=== PATIENT | female | born 1990 | race Caucasian/White ===

== ENCOUNTER → 2017-10-24 10:20 | Outpatient (CLI) | payer OTHER, SELFPAY | PROVIDERS: Visit Provider Physician Assistant Surgical | DX: J02.9 Acute pharyngitis, unspecified (principal) | CPT/HCPCS: 87081 ==

== ENCOUNTER 2017-11-13 15:30 | Outpatient (RCR) | payer OTHER, SELFPAY ==
--- NOTE | 2017-09-18 09:02 | HP.PTEVAL ---
Patient's Visit Information NANCY ALMEIDA is a 27 year old F referred to Physical Therapy by Susana Goode with a diagnosis of Chondromalacia patella. Date of Evaluation: 09/18/17 Physical Therapist: Anupama Pena - Visit Plan Frequency: 2x /Week Duration: 4 Weeks Plan: 2X/ week with HEP for OHS mecahnics and side lunge mechanics, hip and knee strengthening and straight plane core stability (???Diastasis recti core stability..), with HEP - Subjective Subjective: Pt reports that when she was in middle school did gymnastics and had injuries and then did stunting cheerleading and eased back into running. [place]ed training on country [place] and got a lot of pain in satorius and that was in middle of July. Pain in top of knee cap from on the R knee with lunging and side lunges or squating to [employer] son it will catch her breath. Stairs; hurts in the morning going down stairs, If goes on a run and then goes up stairs will feel pain in both knees. No x-rays at this point. No meds at this point. She is on a supplement with ligaplex... Was up to 7 miles and then got to the point she could not walk and has not run in about a week and a 1/2. Working out everyday doing [employer] with patella strap on the R. No N&T at this point. - Pain R knee pain Pain Intensity (Out of 10): 0 L knee pain Pain Intensity (Out of 10): 0 - Objective Gait: Walks with normal gait pattern. LE MMT: hip abd B 4-/5, Hip ext B 4-/5, hip flex R 4-/5 and L 4/5, Knee flex B 4/5, B knee ext 4/5. Pt is able to heel and toe walk without difficulty. Plank: 30 swc hold...as soon as tried hip extension her hips dropped. Small seperation diast recti?? Good HS and gastroc length. Trunk AROM: Flex 100%, Ext 100%, SB B 100%, Rot B 100%. B knee poppins. OHS: increased trunk flexion, knees over toes, good gastroc length. Side lunge: increase knee pain: flexed trunk: knee over toe, weight more fw. No tenderness to palpation. - Goals Goal 1:: I HEP Goal Time Frame: 4-6 Weeks Goal 2:: Be able to OHS with good mechanics and no pain X 10 Goal Time Frame: 4-6 Weeks Goal 3:: Be able to side squat with good mechanics and not pain Goal Time Frame: 4-6 Weeks Goal 4:: Be able to run couple of miles and have no pain after running or ascending the stairs after running Goal Time Frame: 4-6 Weeks - Rehabilitation Potential Rehabilitation Potential: Good - Anticipated Interventions Patient/Client Instruction: Educate patient on: Plan of Care For the Purpose of:: To decrease pain, To improve nutrient delivery to tissue, To increase oxygenation perfusion, To improve muscle performance and motor function, To improve ability to perform ADL's, To increase tolerance to activity/condition/position, To improve performance and independence with ADL's, To improve health of tissue Therapeutic Exercise to Include: Strength training, Postural training, Active ROM, Dynamic Lumbar Stabilization For the Purpose of:: To decrease pain, To increase ROM, To improve nutrient delivery to tissue, To improve muscle performance and motor function, To increase tolerance to activity/condition/position, To improve performance and independence with ADL's, To improve health of tissue Functional Training to Include: Functional sports training For the Purpose of:: To increase tolerance to activity/condition/position Manual Therapy Techniques to Include: Mobilization, Soft tissue mobilization For the Purpose of:: To decrease pain, To increase ROM, To improve nutrient delivery to tissue Thank you for the opportunity to evaluate your patient. For Medicare and Medicare HMO plans, please review the plan of care and approve it. It will need to be FAXED BACK to us at [phone] for Medicare purposes. Please let me know if there are questions or concerns regarding this plan of care. Physician Signature: Date:
--- NOTE | 2017-11-13 17:24 | HP.PTDCSUM ---
HP - PT D/C Summary It has been my pleasure to treat NANCY ALMEIDA under orders from Susana Goode, for the diagnosis of Chondromalacia patella for a total of 15 visit(s). Discharge Date: 11/13/17 Please see the following information for a summary of their discharge status. - Subjective Subjective: Pt reports that the Dr ordered an MRI. Pt reports that this weekend she could not do reverse lunges. - Pain R knee pain Pain Intensity (Out of 10): 1 L knee pain Pain Intensity (Out of 10): 0 - Overall Improvement % Improvement: 25 - Objective Objective/Function: Pt is able to perform an OHS without subsitiution and without pain - Goals Goal 1:: I HEP Goal Progress: Goal Met Goal 2:: Be able to OHS with good mechanics and no pain X 10 Goal Progress: Goal Met Goal 3:: Be able to side squat with good mechanics and not pain Goal Progress: Goal Met Goal 4:: Be able to run couple of miles and have no pain after running or ascending the stairs after running - Plan Plan: DC PT to HEP and see results of MRI - D/C Information Discharge Comments: DC PT to HEP and MRI ordered by MD If there are questions or concerns regarding this patient's physical therapy, please feel free to call me at [phone]. Thank you for the referral of this patient. Sincerely, Anupama Pena
== END 2017-11-13 19:00 | disposition home or self-care (01) ==
LOC: PT 15:30
PROVIDERS: Visit Provider Chiropractor
DX: M22.40 Chondromalacia patellae, unspecified knee (principal)
CPT/HCPCS: 97110; 97161; 97530

== ENCOUNTER → 2017-12-17 08:22 | Outpatient (CLI) | payer OTHER, SELFPAY ==
--- NOTE | 2017-12-17 08:29 | RAD_ITS ---
STUDY: X-RAY - RIGHT KNEE REASON FOR EXAM: Female, 27 years old. 5 month history of a knee pain. History of chondromalacia. TECHNIQUE: 2 view(s) of the knee. COMPARISON: None. FINDINGS: Normal visualized distal femur. Normal visualized proximal tibia and fibula. Normal proximal tibiofibular articulation. Normal medial femorotibial compartment. Normal lateral femorotibial compartment. Normal patellofemoral articulation. The soft tissue structures are unremarkable. RAD/Knee 1 or 2 Views IMPRESSION: Normal x-ray examination of the knee. Electronically Signed: Cuco Wiggins MD at 13:49 EST Tel [phone], Service support ,
== END ==
PROVIDERS: Family Provider Family Medicine; PCP Family Medicine; Referring Provider Chiropractor; Visit Provider Chiropractor
DX: J02.9 Acute pharyngitis, unspecified (principal); M94.261 Chondromalacia, right knee
CPT/HCPCS: 73560; 87081

== ENCOUNTER → 2018-01-16 17:48 | Outpatient (CLI) | payer OTHER, SELFPAY ==
[2017-12-30 10:11] VITALS: BMI 26.8
--- NOTE | 2018-01-16 18:09 | MRI_ITS ---
STUDY: MRI RIGHT KNEE REASON FOR EXAM: Pain around the patella since July. TECHNIQUE: Standardized fat and water weighted pulse sequences were obtained in all 3 orthogonal planes. COMPARISON: Radiographs 12/17/2017. FINDINGS: There is a horizontal/oblique tear of the inferior articular surface of the posterior horn of the medial meniscus (proton-density sagittal images 28-33) with a small parameniscal cyst (T2 sagittal images 16-19). Normal hyaline cartilage of the medial femorotibial compartment. Normal medial femoral condyle and tibial plateau. Normal medial collateral ligamentous complex (MCL). Normal distal semimembranosus, gracilis and semitendinosus tendons. Normal lateral meniscus. Normal hyaline cartilage of the lateral femorotibial compartment. Normal lateral femoral condyle and tibial plateau. Normal proximal tibiofibular articulation. Normal lateral collateral (fibular) ligament. Normal popliteus tendon. Normal biceps femoris tendon. Normal anterior cruciate ligament (ACL). Normal posterior cruciate ligament (PCL). Normal congruent patellofemoral articulation. Normal hyaline cartilage of the patellofemoral compartment. Normal medial and lateral patellar retinaculum. Normal quadriceps tendon. Normal patellar tendon. Normal Hoffa's fat pad. There is a minimal volume of fluid in the knee joint. There is a thin medial patellar plica. The soft tissues are unremarkable. The otherwise visualized osseous structures are unremarkable. MRI/Lower Ext Joint Only (Routine) IMPRESSION: Medial meniscal tear with small parameniscal cyst. No demonstrated chondromalacia patellae. Electronically Signed: Young Shepherd MD at 9:16 EST Tel , Service support ,
--- OUTSIDE RECORDS SUMMARY | 2018-03-04 22:30 | XMS RPT_ITS ---
:1990 Author Organization OHIP Support Name Relationship Address Phone ELLE KRYSTA Unavailable [id number] + [place] [address] NORWESSCH Unavailable [address] + [place] [address] VI, PAT Unavailable [address] + [place] [address] KRYSTA ALMEIDA Unavailable [address] + [place] [address] NORWESSCH Unavailable [address] + [place] [address] VI, PAT Unavailable [address] + [place] [address] ISAC ALMEIDATT Unavailable [address] + [place] [address] NORWESSCH Unavailable [address] + [facility] [place] [address] VI, PAT Unavailable [address] + [place] [address] KRYSTA ALMEIDA Unavailable [address] + [facility] [place] [address] NORWESSCH Unavailable [address] + [facility] [place] [address] VI, PAT Unavailable [address] + [place] [address] KRYSTA ALMEIDA Unavailable [address] + [place] [address] NORWESSCH Unavailable [address] + [facility] [place] [address] VI, PAT Unavailable [address] + [place] [address] ELLE, KRYSTA Unavailable [address] + [place] [address] NORWESSCH Unavailable [address] + [place] [address] VI, PAT Unavailable [address] + [place] [address] ELLE, KRYSTA Unavailable [address] + [place] [address] NORWESSCH Unavailable [address] + [place] [address] VI, PAT Unavailable [address] + [place] [address] ELLE, KRYSTA Unavailable [address] + [place] [address] NORWESSCH Unavailable [address] + [place] [address] VI, PAT Unavailable [address] + [place] [address] ELLE KRYSTA Unavailable [address] + [place] [address] NORWESSCH Unavailable [address] + [place] [address] VI, PAT Unavailable [address] + [place] [address] ELLE KRYSTA Unavailable [address] + [place] [address] NORWESSCH Unavailable [address] + [place] [address] VI, PAT Unavailable [address] + [place] [address] ELLE, KRYSTA Unavailable [address] + [place] [address] NORWESSCH Unavailable [address] + [place] [address] VI, PAT Unavailable [address] + [place] [address] ELLE KRYSTA Unavailable [address] + [place] [address] NORWESSCH Unavailable [address] + [place] [address] VI, GUILLERMO Unavailable [address] + [place] [address] Care Team Providers Name Role Phone Baldomero Rich Attending Unavailable Baldomero Rich Attending Unavailable Arden Gregory Attending Unavailable NAUMOFF, MARVIN Referring Unavailable NAUMOFF, MARVIN Primary Care Unavailable Jose Velarde Attending Unavailable NAUMOFF, MARVIN Referring Unavailable NAUMOFF, MARVIN Primary Care Unavailable BARDSUSANA REDDY Attending Unavailable BARDBARRY, SUSANA Referring Unavailable Primay Care Physicia, No Primary Care Unavailable Arden Gregory Attending Unavailable Primay Care Physicia, No Referring Unavailable Primay Care Physicia, No Primary Care Unavailable Arden Gregory Attending Unavailable Arden Gregory Referring Unavailable Primay Care Physicia, No Primary Care Unavailable Jose Velarde Attending Unavailable NAUMOFF, MARVIN Referring Unavailable Syd, Jose Attending Unavailable NAUMOFF, MARVIN Referring Unavailable BARDBARRY, SUSANA Attending Unavailable BARDBARRY, SUSANA Referring Unavailable NAUMOFF, MARVIN Primary Care Unavailable Jose Velarde Consulting Unavailable Ladi Cox Attending Unavailable NAUMOFF, MARVIN Referring Unavailable BARDBARRY, SUSANA Attending Unavailable BARDALL, SUSANA Referring Unavailable NAUMOFF, MARVIN Primary Care Unavailable PROBLEMS PROBLEMS DATE TYPE CONDITION / CODE ATTENDING STATUS SOURCE 02/13/2018 Unknown Z34.81 - Encounter Baldomero Rich for supervision of Community other normal Hospital , first Repository trimester / Z34.81(ICD-10) 01/31/2018 Unknown Z11.3 - Encounter Baldomero Rich for screening for Community infections with a Hospital predominantly sexual Repository mode of transmission / Z11.3(ICD-10) 12/30/2017 Unknown R39.9 - Unspecified Loyda Cox symptoms and signs Ladi [facility] involving the Hospital genitourinary system Repository / R39.9(ICD-10) 12/17/2017 Unknown J02.9 - Acute Loyda [facility] pharyngitisSUSANA Community unspecified / Hospital J02.9(ICD-10) Repository 12/05/2017 Unknown R30.0 - Dysuria / Jose Velarde [place] R30.0(ICD-10) [facility] 11/14/2017 Unknown M22.40 - BARDALL, Active [facility] unspecified knee / Repository M22.40(ICD-10) PROCEDURES PROCEDURES No Procedure Records FoundRESULTS RESULTS URINE DRUG SCREEN Collected: 02/13/2018 Status: F Source: [place] (VISTA) 11:50 AM [facility] REPOSITORY Order Comment: List of Drugs Taken or Suspected? UNK TYPE CODE TESTS RESULT OUT OF RANGE REFERENCE UNITS LAB L505.0075 TO BE Normal CONFIRMED Result Comment: CONFIRMATORY TESTING FOR ALL POSITIVE URINE DRUG SCREEN RESULTS WILL ONLY BE SENT OUT UPON PHYSICIAN ORDER. VISTA Urine Drug Screen methods provide only preliminary analytical test results. A more specific alternate chemical method must be used in order to obtain a confirmed analytical result. Gas chromatography/mass spectrometery (GC/MS) is the preferred confirmatory method. Clinical consideration and professional judgement should be applied to any drug of abuse test result, particularly when preliminary positive results are used. URINE TCA TESTING MUST BE ORDERED SEPARATELY. USE TEST MNEMONIC: [facility] LAB L505.5005 VISTA UDS PH 5 Normal LAB L505.5015 <1000 ng/mL AMPHETAMINES Normal NEGATIVE LAB L505.5025 < 200 ng/mL BARBITIURATES Normal NEGATIVE LAB L505.5035 < 200 ng/mL BENZODIAZIPINE Normal NEGATIVE LAB L505.5045 < 300 ng/mL COCAINE Normal NEGATIVE LAB L505.5055 < 500 ng/mL ECSTACY Normal NEGATIVE LAB L505.5065 < 300 ng/mL METHADONE Normal NEGATIVE LAB L505.5075 < 300 ng/mL OPIATES Normal NEGATIVE LAB L505.5085 < 25 ng/mL PCP Normal NEGATIVE LAB L505.5095 < 50 ng/mL THC Normal NEGATIVE Performed By: #### L505.5000 #### [facility] [address] [place], [place], [address] URINALYSIS, ROUTINE Collected: 02/13/2018 Status: F Source: [place] (DIPSTICK) 11:50 AM [facility] REPOSITORY Order Comment: How was Urine Obtained? Urine, Random TYPE CODE TESTS RESULT OUT OF RANGE REFERENCE UNITS LAB L400.3000 Yellow COLOR Normal Yellow LAB L400.3050 Clear Normal CLARITY Clear LAB L400.3200 Normal mg/dl Normal GLUCOSE, UR Normal LAB L400.3300 Negative mg/dL Normal BILIRUBIN URINE Negative LAB L400.3400 Negative mg/dl Normal KETONE UR Negative LAB L400.3465 1.002-1.030 Normal SP.GR. DIPSTX 1.010 LAB L400.3550 5.0 - 8.0 pH UR Normal 6.0 LAB L400.3600 Negative mg/dl PROT Normal DIPSTX Negative LAB L400.3700 Normal mg/dl Normal UROBILI Normal LAB L400.3750 Negative Normal NITRITE UR Negative LAB L400.3780 Negative /ul Normal OCCULT BLOOD-UR Negative LAB L400.3800 Negative /ul LEUK Normal ESTERASE Negative Performed By: #### L400.2010 #### [facility] [address] [place], [address] THYROID STIM HORMONE Collected: 02/13/2018 Status: F Source: [place] (TSH) 11:50 AM [facility] REPOSITORY TYPE CODE TESTS RESULT OUT OF RANGE REFERENCE UNITS LAB L501.9520 0.358-3.74 uIU/mL Low TSH 0.31 Performed By: #### L501.9520 #### [facility] [address] [place], [address] CBC W/DIFF, AUTOMATED Collected: 02/13/2018 Status: F Source: [place] 11:50 AM [facility] REPOSITORY TYPE CODE TESTS RESULT OUT OF RANGE REFERENCE UNITS LAB L100.1000 4.4-11.0 K/mm3 Normal WBC 8.5 LAB L100.1200 4.2-5.4 M/mm3 Normal RBC 4.96 LAB L100.1300 12.0-15.0 g/dl Normal HGB 13.9 LAB L100.1400 37-47 % Normal HCT 42.5 LAB L100.1500 81-99 fL Normal MCV 85.7 LAB L100.1600 27.0-32.0 pg Normal MCH 28.0 LAB L100.1700 32-36 g/gl Normal MCHC 32.7 LAB L100.1810 11.6-14.6 % Normal RDW CV 13.2 LAB L100.1820 35.1-43.9 fl Normal RDW SD 40.9 LAB L100.1900 150-450 K/mm3 Normal PLT 304 LAB L100.2000 6.2-12.0 fl Normal MPV 9.7 LAB L100.2100 47-70 % High NEUT% 70.9 LAB L100.2200 19-41 % Normal LY% 21.1 LAB L100.2300 0-10 % Normal MONO% 6.8 LAB L100.2400 0-5 % Normal EO% 0.8 LAB L100.2500 0-1 % Normal BASO% 0.2 LAB L100.2550 0.0-0.9 % Normal IM GRAN % 0.200 Result Comment: IG% - Immature Granulocytes (promyelocytes, myelocytes and metamyelocytes) > 1% indicates that a LEFT SHIFT is Present. LAB L100.2620 2.0-7.7 X10 3/uL Normal Absolute Neut 6.0 LAB L100.2720 0.83-4.51 X10 3/ul Normal Absolute Lymph 1.80 Performed By: #### L100.0100 #### [facility] [address] [facility] [address] RUBELLA IGG Collected: 02/13/2018 Status: F Source: [place] 11:50 AM [facility] REPOSITORY TYPE CODE TESTS RESULT OUT OF RANGE REFERENCE UNITS LAB L509.4000 IU/mL Normal Rubella IgG 35.1 Result Comment: Antibody results Interpretation of Immune Status < 5 IU/ml Presumed Non-immune 5 - < 10 IU/ml Equivocal > or = 10 IU/ml Presumed Immune Performed By: #### L509.4000, L3890.6005 #### [facility] [address] [place], [address] HIV - [facility] Collected: 02/13/2018 Status: F Source: [place] 11:50 AM [facility] REPOSITORY TYPE CODE TESTS RESULT OUT OF RANGE REFERENCE UNITS LAB L3890.6005 Nonreactive Normal HIV - [facility] Non-Reactive Performed By: #### L509.4000, L3890.6005 #### [facility] [address] [place], [address] T AND S-NO Collected: 02/13/2018 Status: F Source: [place] CHARGE W/PNP 11:50 AM [facility] REPOSITORY Order Comment: Reason for Type AND Screen/Red Cells: Surgery? N TYPE CODE TESTS RESULT OUT OF RANGE REFERENCE UNITS LAB B10.0800 O Normal BLOOD NEGATIVE TYPE GEL LAB B100.4050 Normal Ab SCREEN NEGATIVE GEL Performed By: #### B100.7550 #### [facility] [address] [place], [place], [address] RPR Collected: 02/13/2018 Status: F Source: [place] 11:50 AM [facility] REPOSITORY TYPE CODE TESTS RESULT OUT OF REFERENCE UNITS RANGE LAB L700.5100 NONREACTIVE Normal RPR NONREACTIVE Performed By: #### L700.5100 #### [facility] [address] [place], [place], [address] HEPATITIS B SURFACE Collected: 02/13/2018 Status: F Source: [place] AG 11:50 AM [facility] REPOSITORY TYPE CODE TESTS RESULT OUT OF RANGE REFERENCE UNITS LAB L3100.0400 Negative Normal HB Negative SURF AG Result Comment: Performed at: - [facility] [address] [id number] Instrument Maker Apprentice: Oleg Wesley PhD, Phone: [phone] Performed By: #### L3100.0390, L3100.0625 #### [facility] (refer to report for specific site) refer to report for address and phone number HEPATITIS C ANTIBODIES Collected: 02/13/2018 Status: F Source: [place] 11:50 AM [facility] REPOSITORY TYPE CODE TESTS RESULT OUT OF RANGE REFERENCE UNITS LAB L3100.0650 0.0-0.9 s/co ratio Normal HEP C AB <0.1 Result Comment: Negative: < 0.8 Indeterminate: 0.8 - 0.9 Positive: > 0.9 The CDC recommends that a positive HCV antibody result be followed up with a HCV Nucleic Acid Amplification test (045358). Performed By: #### L3100.0390, L3100.0625 #### [facility] (refer to report for specific site) refer to report for address and phone number CT/NG [facility] BY PCR Collected: 01/31/2018 Status: F Source: [place] 1:45 PM [facility] REPOSITORY TYPE CODE TESTS RESULT OUT OF RANGE REFERENCE UNITS LAB L8200.2100 Negative Normal Chlam Negative Trac PCR LAB L8200.2200 Negative Normal NG by Negative PCR Performed By: #### L8200.2000 #### [facility] [address] [place], [address] LOWER EXT JOINT ONLY Observed: 01/16/2018 Status: F Source: [place] (ROUTINE) 6:10 PM [facility] REPOSITORY [facility] Imaging Services [address] [place] [address] Lower Ext Joint Only (Routine) MR#: [id number] Acct: [id number] Name: NANCY ALMEIDA Rep #: [id number] : 1990 F 27 From: Young Shepherd MD PCP: Marvin Oconnor MD Status: REG CLI Study: Lower Ext Joint Only (Routine) Date of Exam: 01/16/18 Exam# [id number] Ordering Dr: Susana Kaiser STUDY: MRI RIGHT KNEE REASON FOR EXAM: Pain around the patella since July. TECHNIQUE: Standardized fat and water weighted pulse sequences were obtained in all 3 orthogonal planes. COMPARISON: Radiographs 12/17/2017. FINDINGS: There is a horizontal/oblique tear of the inferior articular surface of the posterior horn of the medial meniscus (proton-density sagittal images 28-33) with a small parameniscal cyst (T2 sagittal images 16-19). Normal hyaline cartilage of the medial femorotibial compartment. Normal medial femoral condyle and tibial plateau. Normal medial collateral ligamentous complex (MCL). Normal distal semimembranosus, gracilis and semitendinosus tendons. Normal lateral meniscus. Normal hyaline cartilage of the lateral femorotibial compartment. Normal lateral femoral condyle and tibial plateau. Normal proximal tibiofibular articulation. Normal lateral collateral (fibular) ligament. Normal popliteus tendon. Normal biceps femoris tendon. Normal anterior cruciate ligament (ACL). Normal posterior cruciate ligament (PCL). Normal congruent patellofemoral articulation. Normal hyaline cartilage of the patellofemoral compartment. Normal medial and lateral patellar retinaculum. Normal quadriceps tendon. Normal patellar tendon. Normal Hoffa's fat pad. There is a minimal volume of fluid in the knee joint. There is a thin medial patellar plica. The soft tissues are unremarkable. The otherwise visualized osseous structures are unremarkable. MRI/Lower Ext Joint Only (Routine) IMPRESSION: Medial meniscal tear with small parameniscal cyst. No demonstrated chondromalacia patellae. Electronically Signed: Young Shepherd MD at 9:16 EST Tel , Service support , CC: Marvin Oconnor MD; SUSANA [facility] Lab Tech Instructor: Signed URGENT CARE VISIT Observed: 12/30/2017 Status: F Source: [place] REPORT 10:43 AM [facility] [address] [place] [address] OFFICE VISIT Date of Service: 12/30/17 MR#: [id number] Acct: [id number] Name: NANCY ALMEIDA Rep #: [id number] : 1990 Provider: SHERLY Cox Age/Sex: 27/F Location: [facility] Status: Signed Intake Vital Signs12/30/17 Height 5 ft 6 in 12/30/17 Weight: 166 lb 4 oz 12/30/17 Body Mass Index (BMI) 26.8 12/30/17 Blood Pressure 138/75 H Intake Visit Reasons: Urinary tract infection Chief Complaint: Dysuria Is patient in pain?: Yes (burning with pee ) Allergies acetaminophen [From Vicodin] Adverse Reaction (Verified 12/17/17 08:04) Itching hydrocodone [From Vicodin] Adverse Reaction (Verified 12/17/17 08:04) Itching PFSH Medical History Gave to child recently (Acute) Family History Other Bleeding disorder Diabetes Social History Smoking Status: Never smoker alcohol intake: never HPI HPI Chief Complaint: Dysuria Details: NANCY ALMEIDA, is a 27 F who presents to the office today for mild symptoms of some pressure and urgency after urination. She has no fever chills nausea or vomiting. No back pain. She states she had a UTI last month and was treated with an antibiotic safe for as they are trying to conceive. Today's test is negative. UA shows No nitrates. Trace of blood and trace leukocytes. ROS Const Constitutional: No body ache, chills, fatigue, fever(s), night sweats, change in appetite, weakness, frequent falls, headache(s) or excessive sweating Eyes Eyes: No visual disturbances, light sensitivity, eye pain or change in vision ENT ENT: No ear pain, ear discharge, hearing loss, dizziness/vertigo, nasal discharge, difficulty swallowing, sore throat, neck pain or headache(s) Resp Respiratory: No cough, chest congestion, hemoptysis, shortness of breath or wheezing Cardio Cardiology: No shortness of breath, irregular heart rhythm, lightheadedness, chest pain at rest, chest pain with exertion, generalized swelling, orthopnea, palpitations or excessive sweating Gastro GI: No difficulty swallowing, abdominal pain, bloating, change in bowel habits, diarrhea, blood in stool, Black,tarry stools, nausea/dyspepsia or vomiting Genitourinary-Female: Positive for urinary urgency; no burning urination, urinary frequency, blood in urine or Vaginal Itching Musc Musculoskeletal: No joint pain, back pain, numbness, tingling or neck pain Skin Skin: Positive for other (just quit breast feeding her one year old so feels alot of breast pressure.); no lesions, itching or rash Breast Breast: Positive for other (just quit breast feeding her one year old so feels alot of breast pressure.) Neuro Neurology: No visual disturbances, numbness, tingling, abnormal speech, confusion, unsteady gait/balance, dizziness, weakness, frequent falls, loss of vision or headache(s) Psych Psychiatric: No change in appetite, No confusion, No anxiety, No depression Endo Endocrine: No fatigue, cold intolerance, excessive sweating, flushing, heat intolerance or increased thirst/drinking Aller/Imm Allergy/Immunologic: No wheezing, itchy eyes, food intolerance, seasonal allergy symptoms or hives Bobby/Lymp Hematologic/Lymphatic: No easy bruising Exam Const General: cooperative, no acute distress Orientation: alert, oriented x3 HENMT Head: normal to inspection, normocephalic Ears: hearing grossly normal bilaterally, external ears normal Face and sinus: normal facial exam Mouth: oral mucosae normal, oropharynx normal, tongue normal Throat: posterior oropharynx normal Eyes General: appearance normal, both eyes and all related structures Eyelids: eyelids normal Conjunctivae: conjunctivae normal Sclera: sclerae normal Pupils: PERRL EOM: EOM intact bilaterally Direct ophthalmoscopy: normal light reflex, no photophobia Neck Neck: normal visual inspection, supple, no lymphadenopathy Neck mass: No Thyroid: thyroid normal Carotids: no bruits Lymphatic: no lymphadenopathy noted Chest Chest palpation AND inspection: normal inspection of the chest Resp Effort AND Inspection: normal respiratory effort, able to speak in complete sentences, symmetric chest movement, no audible wheezes, no cough, not labored, no respiratory distress Auscultation: Bilateral: Clear to Auscultation Cardio Rate: regular rate Rhythm: regular rhythm Heart Sounds: S1 normal, S2 normal GI Inspection: normal to inspection Auscultation: normal bowel sounds Palpation: soft, no hepatosplenomegaly, no pulsatile masses, no guarding, not rigid, no hepatosplenomegaly, nontender Musc Musculoskeletal: No joint tenderness or joint redness Skin General: no rashes or lesions noted Neuro General: alert, oriented x3, moves all extremities Speech: speech normal Extrem General: normal to inspection Psych Appearance: grossly normal, well kempt Mental Status: mental status grossly normal Affect: normal affect Speech and Movement: speech and movement normal Attitude: cooperative Thought Process: normal Thought Content: normal Judgment: judgment good Assessment AND Plan Problems 1. Symptoms of urinary tract infection R39.9 Plan Since symptoms are mild and patient is trying to conceive, patient has opted to wait until the urine C AND S returns and proper antibiotic, safe for , is chosen if needed. She was advised if while waiting for culture to return her symptoms worsen she can call here to get an antibiotic called in. UA sent for culture ad sensitivity. If she needs an antibiotic, would need one safe for called in to [facility] Coding Level of Care Code Off vis,est,level 3 Diagnoses Symptoms of urinary tract infection R39.9 12/30/17 1043 <Electronically signed by Ladi DUBOIS> Date Ladi Johnson Signature: Date (if applicable) CC: URGENT CARE VISIT Observed: 12/17/2017 Status: F Source: [facility] REPORT 8:31 AM [facility] REPOSITORY [facility] [address] [place] [address] [address] [place] [address] OFFICE VISIT Date of Service: 12/17/17 MR#: [id number] Acct: [id number] Name: NANCY ALMEIDA Rep #: [id number] : 1990 Provider: Jose DUBOIS Age/Sex: 27/F Location: [facility] Status: Signed Intake Vital Signs12/17/17 Height 5 ft 6 in Intake Visit Reasons: FEVER, SORE THROAT, BODY ACHES Chief Complaint: Dysuria Allergies acetaminophen [From Vicodin] Adverse Reaction (Verified 12/17/17 08:04) Itching hydrocodone [From Vicodin] Adverse Reaction (Verified 12/17/17 08:04) Itching [facility] Medical History Gave to child recently (Acute) Family History Other Bleeding disorder Diabetes Social History Smoking Status: Never smoker alcohol intake: never HPI HPI Chief Complaint: Dysuria Details: NANCY ALMEIDA, is a 27 F who presents to the office today for initial evaluation 48-hour history of sore throat and occasional chills. No complaints of fever, drooling, sweats, cough, chest pain/shortness of breath. No oxbj-iyq-vijbwkf products tried to assist with symptoms. No other members in household with similar complaints. She is a non-smoker. No other associated symptoms and no other alleviating or aggravating factors. ROS Const Constitutional: No other (ROS negative x10 other than as noted above) Exam Const General: cooperative, healthy appearing, no acute distress, comfortable Nutritional Appearance: average body habitus Orientation: alert, awake, oriented x3 [facility] Head: normal to inspection Ears: hearing grossly normal bilaterally, external ears normal, TM's normal bilaterally, EAC's normal Nose: external nose normal, nares normal, septum normal, no nasal discharge Face and sinus: normal facial exam, sinuses nontender, face symmetric Mouth: tongue normal, lip normal, oral mucosae normal Teeth and gingiva: dentition normal, gingiva normal Throat: uvula midline, posterior oropharynx normal, no postnasal drainage, abnormal tonsil bilaterally erythema (Rapid strep test today negative) Eyes General: appearance normal, both eyes and all related structures Neck Neck: normal visual inspection, full ROM, no lymphadenopathy, no meningeal signs, supple Neck mass: No Thyroid: thyroid normal Lymphatic: no lymphadenopathy noted Chest Chest palpation AND inspection: normal inspection of the chest Resp Effort AND Inspection: normal respiratory effort, able to speak in complete sentences, symmetric chest movement, no cough Auscultation: Bilateral: Clear to Auscultation Cardio Palpation: normal PMI Rate: regular rate Rhythm: regular rhythm Heart Sounds: S1 normal, S2 normal, no gallops, no murmurs, no rubs Pulses: radial pulses present GI Inspection: normal to inspection Palpation: soft, no hepatosplenomegaly Skin General: no rashes or lesions noted Neuro General: alert, awake, oriented x3, gait normal Cognition: normal cognition Speech: speech normal Gait: normal gait Motor: muscle tone normal throughout Sensory Exam: no sensory deficits noted Psych Appearance: grossly normal Mental Status: mental status grossly normal Mood: congruent mood Affect: normal affect Speech and Movement: speech and movement normal Attitude: cooperative Thought Process: normal Thought Content: normal Judgment: judgment good Assessment AND Plan Problems 1. Pharyngitis J02.9 Plan Patient aware today's rapid strep test was negative therefore culture sent to lab for further evaluation. Clear fluids, rest, Advil/Tylenol, saltwater gargles, change toothbrush as instructed today. Follow-up with PCP in 5-7 days should symptoms not improve, sooner should symptoms worsen or any other concerns develop. Patient states acknowledging understanding all the above. This note was generated with [employer] dictation software. It may contain incorrect words, spelling, and punctuation that were not noted in checking the note before signing. Orders Orders: Coding Level of Care Code Off vis,est,level 3 Diagnoses Pharyngitis J02.9 12/17/17 0831 <Electronically signed by Jose DUBOIS> Date Jose DUBOIS Cosigner Signature: Date (if applicable) CC: KNEE 1 OR 2 VIEWS Observed: 12/17/2017 Status: F Source: GROTON 8:28 AM [facility] REPOSITORY [facility] Imaging Services [address] [place] [address] Knee 1 or 2 Views MR#: [id number] Acct: [id number] Name: NANCY ALMEIDA Rep #: [id number] : 1990 F 27 From: Cuco Wiggins MD PCP: Marvin Oconnor MD Status: REG CLI Study: Knee 1 or 2 Views Date of Exam: 12/17/17 Exam# [id number] Ordering Dr: Susana Kaiser STUDY: X-RAY - RIGHT KNEE REASON FOR EXAM: Female, 27 years old. 5 month history of a knee pain. History of chondromalacia. TECHNIQUE: 2 view(s) of the knee. COMPARISON: None. FINDINGS: Normal visualized distal femur. Normal visualized proximal tibia and fibula. Normal proximal tibiofibular articulation. Normal medial femorotibial compartment. Normal lateral femorotibial compartment. Normal patellofemoral articulation. The soft tissue structures are unremarkable. RAD/Knee 1 or 2 Views IMPRESSION: Normal x-ray examination of the knee. Electronically Signed: Cuco Wiggins MD at 13:49 EST Tel [phone], Service support , CC: Marvin Oconnor MD; SUSANA KAISER Medical Lab Tech Instructor: Signed Observed: 12/17/2017 Status: F Source: ESTHER CULTURE, R/O STREP A 8:00 AM [facility] REPOSITORY JOB Culture No Group A Beta Streptococcus isolated. * This cultures intended use is to screen for Beta Streptococcus A only. All other pathogens and potential pathogens will not be screened for or reported. If a complete workup of all potential pathogens is indicated an order for a routine throat culture is required. Performed By: #### M100.010 #### [facility] Laboratory [address] [place], [address] URGENT CARE VISIT Observed: 12/05/2017 Status: F Source: ESTHER REPORT 10:11 AM [facility] REPOSITORY [facility] [address] [place] [address] 6 [place] [address] OFFICE VISIT Date of Service: 12/05/17 MR#: [id number] Acct: [id number] Name: NANCY ALMEIDA Rep #: [id number] : 1990 Provider: Jose DUBOIS Age/Sex: 27/F Location: [facility] Status: Signed Intake Vital Signs12/05/17 Height 5 ft 6 in 12/05/17 Weight: 164 lb 12/05/17 Body Mass Index (BMI) 26.4 12/05/17 Blood Pressure 120/76 Intake Visit Reasons: Urinary tract infection Chief Complaint: Dysuria Development Chemist Required: No Accompanied by: self Is patient in pain?: No Allergies acetaminophen [From Vicodin] Adverse Reaction (Verified 12/05/17 08:53) Itching hydrocodone [From Vicodin] Adverse Reaction (Verified 12/05/17 08:53) Itching Medications nitrofurantoin monohydrate/macrocrystals 100 mg capsule 100 mg PO BID #10 cap 12/05/17 [Rx Confirmed 12/05/17] [facility] Medical History Gave to child recently (Acute) Family History Other Bleeding disorder Diabetes Social History Smoking Status: Never smoker alcohol intake: never HPI HPI Chief Complaint: Dysuria Details: NANCY ALMEIDA, is a 27 F who presents to the office today for initial evaluation approximate 24-hour history of dysuria and urinary frequency. No complaints of fever, chills, sweats, back pain, though does note mild suprapubic tenderness. She notes taking no ekxp-fxc-ikgucvz products to assist with symptoms. Patient would also be like to be screened for . She notes no other associated symptoms and no other alleviating or aggravating factors. ROS Const Constitutional: No other (ROS negative x10 other than as noted above) Exam Const General: cooperative, healthy appearing, no acute distress, comfortable Nutritional Appearance: average body habitus Orientation: alert, awake, oriented x3 HENMT Head: normal to inspection Ears: hearing grossly normal bilaterally, external ears normal Nose: external nose normal Eyes General: appearance normal, both eyes and all related structures Neck Lymphatic: no lymphadenopathy noted Chest Chest palpation AND inspection: normal inspection of the chest Resp Effort AND Inspection: normal respiratory effort, able to speak in complete sentences, symmetric chest movement Auscultation: Bilateral: Clear to Auscultation Cardio Rate: regular rate Pulses: radial pulses present GI Inspection: normal to inspection Palpation: soft, not firm, no guarding, tender other (suprapubic tender when patient palpates, she states) General: No CVA tenderness, other (See urinalysis dip and urine hCG results) Skin General: no rashes or lesions noted Neuro General: alert, awake, oriented x3, gait normal Cognition: normal cognition Speech: speech normal Gait: normal gait Motor: muscle tone normal throughout Sensory Exam: no sensory deficits noted Extrem General: normal to inspection Psych Appearance: grossly normal Mental Status: mental status grossly normal Mood: congruent mood Affect: normal affect Speech and Movement: speech and movement normal Attitude: cooperative Thought Process: normal Thought Content: normal Judgment: judgment good Results BMSUA Office Urine Color Yellow Last Edit by Theresa Glass on 12/05/17 09:19 BMSPREGUR Office , Urine Negative Last Edit by Theresa Glass on 12/05/17 09:19 Assessment AND Plan 1. Urinary tract infection N39.0 Plan Detail Other Orders Orders: Other Medications New: nitrofurantoin monohyd/m-cryst 100 mg (Macrobid) must jlfirs727 mg PO BID 10 caps 0RF ster with a meal/food Additional Comments Macrobid as prescribed today. Appropriate hygiene is reinforced today. Follow-up with PCP in 3-5 days should symptoms not improve, sooner should symptoms worsen or any other concerns develop. Patient states acknowledging understanding all the above. This note was generated with UXFLIPation software. It may contain incorrect words, spelling, and punctuation that were not noted in checking the note before signing. Coding Level of Care Code Off vis,est,level 3 Diagnoses Urinary tract infection N39.0 12/05/17 1011 <Electronically signed by Jose DUBOIS> Date Jose DUBOIS Cosigner Signature: Date (if applicable) CC: PT D/C SUMMARY (1) Observed: 11/13/2017 Status: F Source: GROTON 5:31 PM [facility] REPOSITORY [facility] Physical Therapy [address] [place] [address] Fax REHABILITATION SERVICES DISCHARGE SUMMARY MR#: [id number] Acct: [id number] Name: NANCY ALMEIDA Rep #: [id number] : 1990 27 From: Anupama Pena MPT Referring DrRomain: SUSANA KAISER Status: REG RCR Insurance: [facility] SELF PAY INSURANCE HP - PT D/C Summary It has been my pleasure to treat NANCY ALMEIDA under orders from Susana Kaiser, for the diagnosis of Chondromalacia patella for a total of 15 visit(s). Discharge Date: 11/13/17 Please see the following information for a summary of their discharge status. - Subjective Subjective: Pt reports that the Dr ordered an MRI. Pt reports that this weekend she could not do reverse lunges. - Pain R knee pain Pain Intensity (Out of 10): 1 L knee pain Pain Intensity (Out of 10): 0 - Overall Improvement % Improvement: 25 - Objective Objective/Function: Pt is able to perform an OHS without subsitiution and without pain - Goals Goal 1:: I HEP Goal Progress: Goal Met Goal 2:: Be able to OHS with good mechanics and no pain X 10 Goal Progress: Goal Met Goal 3:: Be able to side squat with good mechanics and not pain Goal Progress: Goal Met Goal 4:: Be able to run couple of miles and have no pain after running or ascending the stairs after running - Plan Plan: DC PT to HEP and see results of MRI - D/C Information Discharge Comments: DC PT to HEP and MRI ordered by MD If there are questions or concerns regarding this patient's physical therapy, please feel free to call me at [phone]. Thank you for the referral of this patient. Sincerely, Anupama Pena <Electronically signed by Anupama Pena MPT> 11/13/17 3338 CC: No Primary Care Physician; SUSANA KAISER Signed URGENT CARE VISIT Observed: 10/23/2017 Status: F Source: [place]OT[place] REPORT 9:40 AM [facility] [address] [place] [address] 6 [place] [address] OFFICE VISIT Date of Service: 10/23/17 MR#: [id number] Acct: [id number] Name: NANCY ALMEIDA Rep #: [id number] : 1990 Provider: Arden DUBOIS Age/Sex: 27/F Location: [facility] Status: Signed Intake Vital Signs10/23/17 Height 5 ft 6 in 10/23/17 Weight: 164 lb 10/23/17 Body Mass Index (BMI) 26.4 10/23/17 Blood Pressure 112/68 Intake Visit Reasons: STREP THROAT Development Chemist Required: No Accompanied by: SELF Is patient in pain?: No Allergies acetaminophen [From Vicodin] Adverse Reaction (Verified 10/23/17 08:58) Itching hydrocodone [From Vicodin] Adverse Reaction (Verified 10/23/17 08:58) Itching Medications ygzqfasubpwqn-ujrxzkqddflgk-kabayowuefo 5 mg-325 mg-200 mg tablet 2 tab PO ONCE 04/16/17 [History Confirmed 10/23/17] Nurse's Note: PT IS BREAST FEEDING [facility] Medical History Gave to child recently (Acute) Family History Other Bleeding disorder Diabetes Social History Smoking Status: Never smoker alcohol intake: never HPI HPI Details: NANCY ALMEIDA, is a 27 F who presents to the office today for concern for possible strep throat. Patient states she has had a slightly irritated throat with red spots in the back of her mouth for the past 24 hours. 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 She denies any fever, chills, sweats. No nausea, vomiting, diarrhea. No other associated symptoms or alleviating/aggravating factors. ROS Const Constitutional: No fever(s), headache(s), anorexia, chills or abnormal sleep pattern ENT ENT: Positive for post nasal drip, sore throat, nasal congestion and nasal discharge; no headache(s) or ear pain Resp Respiratory: No shortness of breath Cardio Cardiology: No irregular heart rhythm or palpitations Gastro GI: No nausea/dyspepsia Neuro Neurology: No headache(s) or behavioral changes Psych Psychiatric: No abnormal sleep pattern, No behavioral changes Exam Const General: cooperative, healthy appearing HENAZ Head: normal to inspection Ears: hearing grossly normal bilaterally, TM's normal bilaterally, EAC's normal Nose: external nose normal, nasal discharge clear Mouth: oral mucosae normal Throat: abnormal tonsil bilaterally Resp Effort AND Inspection: normal respiratory effort Auscultation: Bilateral: Clear to Auscultation Cardio Palpation: normal PMI Rate: regular rate Rhythm: regular rhythm Neuro General: CN's II-XI intact bilaterally, alert Psych Appearance: grossly normal Mental Status: mental status grossly normal Results BMSRAPIDSTREPA Office Rapid Strep A Negative Last Edit by Theresa Glass on 10/23/17 09:01 Assessment AND Plan Problems 1. URI, acute J06.9 Plan Negative rapid strep in the office. Patient advised we will send the swab off for culture. Encouraged to get plenty of rest, drink lots of clear liquids, and use Tylenol or Ibuprofen (unless contraindicated) for fever and comfort. Patient also educated on other symptomatic management techniques. To be seen in 7-10 days if no improvement; sooner if worsening of symptoms. Patient advised of potential red flags and when appropriate report to the ED. Patient verbalized understanding of all the above. Orders Orders: Coding Level of Care Code Off vis,est,level 3 Diagnoses URI, acute J06.9 10/23/17 0940 <Electronically signed by Arden DUBOIS> Date Arden DUBOIS Cosigner Signature: Date (if applicable) CC: Observed: 10/23/2017 Status: F Source: GROTON CULTURE, R/O STREP A 8:30 AM [facility] REPOSITORY JOB Culture No Group A Beta Streptococcus isolated. * This cultures intended use is to screen for Beta Streptococcus A only. All other pathogens and potential pathogens will not be screened for or reported. If a complete workup of all potential pathogens is indicated an order for a routine throat culture is required. Performed By: #### M100.010 #### [facility] Laboratory [address] [place], [address] INITAL EVALUATION (1) Observed: 09/18/2017 Status: F Source: GROTON - PT 1:05 PM [facility] REPOSITORY [facility] Physical Therapy [facility] [address] [place] [address]. [address] [place] [address] Fax REHABILITATION SERVICES INITIAL EVALUATION MR#: [id number] Acct: [id number] Name: NANCY ALMEIDA Rep #: [id number] : 1990 27 From: Anupama PAUL Referring Dr.: SUSANA KAISER Status: REG RCR Insurance: [facility] SELF PAY INSURANCE Patient's Visit Information NANCY ALMEIDA is a 27 year old F referred to Physical Therapy by Susana Kaiser with a diagnosis of Chondromalacia patella. Date of Evaluation: 09/18/17 Physical Therapist: Anupama Pena - Visit Plan Frequency: 2x /Week Duration: 4 Weeks Plan: 2X/ week with HEP for OHS mecahnics and side lunge mechanics, hip and knee strengthening and straight plane core stability (???Diastasis recti core stability..), with HEP - Subjective Subjective: Pt reports that when she was in middle school did gymnastics and had injuries and then did stunting cheerleading and eased back into running. Started training on country [place] and got a lot of pain in satorius and that was in middle of July. 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 Stairs; hurts in the morning going down stairs, If goes on a run and then goes up stairs will feel pain in both knees. No x-rays at this point. No meds at this point. She is on a supplement with ligaplex... Was up to 7 miles and then got to the point she could not walk and has not run in about a week and a 1/2. 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 No N AND T at this point. - Pain R knee pain Pain Intensity (Out of 10): 0 L knee pain Pain Intensity (Out of 10): 0 - Objective Gait: Walks with normal gait pattern. LE MMT: hip abd B 4-/5, Hip ext B 4-/5, hip flex R 4-/5 and L 4/5, Knee flex B 4/5, B knee ext 4/5. Pt is able to heel and toe walk without difficulty. Plank: 30 swc hold...as soon as tried hip extension her hips dropped. Small seperation diast recti?? Good HS and gastroc length. Trunk AROM: Flex 100%, Ext 100%, SB B 100%, Rot B 100%. B knee poppins. OHS: increased trunk flexion, knees over toes, good gastroc length. Side lunge: increase knee pain: flexed trunk: knee over toe, weight more fw. No tenderness to palpation. - Goals Goal 1:: I HEP Goal Time Frame: 4-6 Weeks Goal 2:: Be able to OHS with good mechanics and no pain X 10 Goal Time Frame: 4-6 Weeks Goal 3:: Be able to side squat with good mechanics and not pain Goal Time Frame: 4-6 Weeks Goal 4:: Be able to run couple of miles and have no pain after running or ascending the stairs after running Goal Time Frame: 4-6 Weeks - Rehabilitation Potential Rehabilitation Potential: Good - Anticipated Interventions Patient/Client Instruction: Educate patient on: Plan of Care For the Purpose of:: To decrease pain, To improve nutrient delivery to tissue, To increase oxygenation perfusion, To improve muscle performance and motor function, To improve ability to perform ADL's, To increase tolerance to activity/condition/position, To improve performance and independence with ADL's, To improve health of tissue Therapeutic Exercise to Include: Strength training, Postural training, Active ROM, Dynamic Lumbar Stabilization For the Purpose of:: To decrease pain, To increase ROM, To improve nutrient delivery to tissue, To improve muscle performance and motor function, To increase tolerance to activity/condition/position, To improve performance and independence with ADL's, To improve health of tissue Functional Training to Include: Functional sports training For the Purpose of:: To increase tolerance to activity/condition/position Manual Therapy Techniques to Include: Mobilization, Soft tissue mobilization For the Purpose of:: To decrease pain, To increase ROM, To improve nutrient delivery to tissue Thank you for the opportunity to evaluate your patient. For Medicare and Medicare HMO plans, please review the plan of care and approve it. It will need to be FAXED BACK to us at [phone] for Medicare purposes. Please let me know if there are questions or concerns regarding this plan of care. Physician Signature: Date: <Electronically signed by Anupama Pena MPT> 09/18/17 1890 CC: No Primary Care Physician; SUSANA KAISER Signed For Medicare only, by signing this I certify the plan of care. Physicians Signature Date URGENT CARE VISIT Observed: 04/16/2017 Status: F Source: ESTHER REPORT 6:09 PM [facility] REPOSITORY [facility] [address] [place] [address] [address] [place] [address] OFFICE VISIT Date of Service: 04/16/17 MR#: [id number] Acct: [id number] Name: NANCY ALMEIDA Rep #: [id number] : 1990 Provider: Arden DUBOIS Age/Sex: 27/F Location: [facility] Status: Signed Intake Vital Signs04/16/17 Height 5 ft 6 in Intake Visit Reasons: COUGH, EAR ACHE Is patient in pain?: No Allergies acetaminophen [From Vicodin] Adverse Reaction (Verified 04/16/17 16:49) Itching hydrocodone [From Vicodin] Adverse Reaction (Verified 04/16/17 16:49) Itching Medications azithromycin 250 mg tablet 250 mg PO QDAY 5 Days #6 tab 04/16/17 [Rx Confirmed 04/16/17] lvfwkxwvwktkw-rcbxgdulkgndx-fpvntowbifu 5 mg-325 mg-200 mg tablet 2 tab PO ONCE 04/16/17 [History Confirmed 04/16/17] [facility] Medical History Gave to child recently (Acute) Family History Other Bleeding disorder Diabetes Social History Smoking Status: Never smoker alcohol intake: never HPI HPI Details: NANCY ALMEIDA, is a 27 F who presents to the office today for cough, nasal congestion and sore throat for the past 4 days. Patient reports being around her son has been treated for pharyngitis with similar type symptoms. Patient states that she has never had strep throat is not concerned for this time however states that her cough has been consistent and has affected her sleep. She reports that her cough has been dry nonproductive and denies hemoptysis, shortness of breath or difficulty breathing. She denies fever, chills, sweats. No nausea, vomiting, diarrhea. No other associated symptoms or alleviating/aggravating factors. ROS Const Constitutional: No fever(s), anorexia, chills, abnormal sleep pattern or headache(s) ENT ENT: Positive for post nasal drip, sore throat, nasal congestion and nasal discharge; no headache(s) or ear pain Resp Respiratory: Positive for cough Cough: Yes non-productive and pain with cough; no shortness of breath, hemoptysis or wheezing Cardio Cardiology: No irregular heart rhythm or palpitations Gastro GI: No nausea/dyspepsia Neuro Neurology: No behavioral changes or headache(s) Psych Psychiatric: No abnormal sleep pattern, No behavioral changes Aller/Imm Allergy/Immunologic: No wheezing Exam Const General: cooperative, healthy appearing [facility] Head: normal to inspection Ears: hearing grossly normal bilaterally, TM's normal bilaterally, EAC's normal Nose: external nose normal, nasal discharge clear Mouth: oral mucosae normal Throat: posterior oropharynx abnormal erythema; Negative for no exudates or no edema Resp Effort AND Inspection: normal respiratory effort Auscultation: Bilateral: Clear to Auscultation Cardio Palpation: normal PMI Rate: regular rate Rhythm: regular rhythm Neuro General: CN's II-XI intact bilaterally, alert Psych Appearance: grossly normal Mental Status: mental status grossly normal Assessment AND Plan Problems 1. URI, acute J06.9 Status Acute Plan Encouraged to get plenty of rest, drink lots of clear liquids, and use Tylenol or Ibuprofen (unless contraindicated) for fever and comfort. Patient also educated on other symptomatic management techniques. To be seen in 7-10 days if no improvement; sooner if worsening of symptoms. Patient advised of potential red flags and appropriate report to the ED. Patient verbalized understanding of all the above. This note was generated with Pinstripe dictation software. It may contain incorrect words, spelling, and punctuation that were not noted in checking the note before signing. Medications New: azithromycin Take 2 tabs once on day one then try414 mg PO QDAY 5 days SHERLY Love e one tablet once daily for the next 4 days. Discontinued: docusate sodium Discontinued Whsj672 mg PO BID PRN PRN Constipation Kaelyn Tracy on: Pt no longer taking oxycodone Discontinued Reason: P5 - 10 mg PO Q6H PRN PRN Severe Dano Kaelyn Tracy t no longer taking n (-11/14) Coding Level of Care Code Off vis,new,level 3 Diagnoses URI, acute J06.9 04/16/17 9073 <Electronically signed by Arden DUBOIS> Date Arden Gregory SHERLY Monzoner Signature: Date (if applicable) CC: ALLERGIES ALLERGIES DATE TYPE / CODE NAME / CODE REACTION SEVERITY SOURCE 12/17/2017 Drug hydrocodone/ Itching Unknown [place] [facility] Allergy/4160 [id number](R Hospital 37151(SNOMED XNORM) Repository CT) 12/17/2017 Drug acetaminophe Itching Unknown [place] [facility] Allergy/4160 n/[id number] Hospital 34963(SNOMED (RXNORM) Repository CT) ENCOUNTERS ENCOUNTERS ADMIT/DISCHARGE ACCOUNT ADMITTING ENCOUNTER LOCATION SOURCE NUMBER CLASS 02/13/2018 [id number] Ambulatory [place] 6 [facility] ing:WOBLAB Repository 01/31/2018 [id number] Ambulatory [place] 4 [facility] ing:LABSPEC Repository 01/16/2018 [id number] Ambulatory [place] 4 [facility] ing:MRI Repository 12/30/2017/ [id number] Ambulatory BMSBuilding:B [place] 8 9 [facility] Repository 12/17/2017 [id number] Ambulatory [place] 0 [facility] ing:RAD Repository 12/17/2017/ [id number] Ambulatory BMSBuilding:B [place] 8 3 [facility] Repository 12/05/2017/ [id number] Ambulatory BMSBuilding:B [place] 8 8 [facility] Repository 11/13/2017/ [id number] Ambulatory [place] 8 8 [facility] ing:PT Repository 10/24/2017 [id number] Ambulatory [place] 7 [facility] ing:LABSPEC Repository 10/23/2017/ [id number] Ambulatory BMSBuilding:B [place] 8 6 [facility] Repository 07/12/2017/ [id number] Ambulatory BMSBuilding:B [place] 8 3 [place].[facility] Hospital Repository 04/16/2017/ [id number] Ambulatory BMSBuilding:B [place] 8 8 [place] Hospital Repository PAYERS PAYERS ENCOUNTER GUARANTOR PAYER SUBSCRIBER SOURCE 02/13/2018 NANCY Rome Primary NANCY [place] [id number] Insurance:MEDICAL HAGANSDOB: [facility] [id number] Repository [address]Ckx: 330 [id number] 330 () Date:[id number] [address] [address]LB: 02/13/2018 Secondary NOT GIVENUNK [place] Insurance:SELF PAY [facility] Number: Effective Repository Date:2018-02-13 01/31/2018 NANCY Rome Primary NANCY [place] [id number] Insurance:[facility] [id number] Number: Repository [address]Ron: 330 [id number] 330 () Date:[id number] [address] [address]AG: 01/31/2018 Secondary NOT GIVENUNK [place] Insurance:SELF PAY [facility] Number: Effective Repository Date:2018-01-31 01/16/2018 NANCY Rome Primary NANCY [place] [id number] Insurance:MEDICAL [facility] [id number] Number: Repository [address]Vba: 330 [id number] 330 () Date:[id number] [address] [address]SI: 01/16/2018 Secondary NOT GIVENUNK [place] Insurance:SELF PAY [facility] Number: Effective Repository Date:2018-01-09 12/30/2017 NANCY Rome Primary NANCY [place] [id number] Insurance:MEDICAL HAGANSDOB: [facility] [facility] [id number] Repository [id number]: 330 [id number] -[phone] (HP) Date:5755-10-85BT [address] [address]KF: 12/30/2017 Secondary NOT GIVENUNK Esther Insurance:SELF PAY [facility] Number: Effective Repository Date:2017-12-30 12/17/2017 NANCY Rome Primary NANCY Santana [id number] Insurance:MEDICAL HAGANSDOB: [facility] [id number] [facility] [place] Number: Repository [id number]: 330 [id number] -[phone] (HP) Date:9948-84-65EX [address] [address]CM: 12/17/2017 Secondary NOT GIVENUNK Esther Insurance:SELF PAY [facility] Number: Effective Repository Date:2017-11-28 12/17/2017 NANCY Rome Primary NANCY Santana [id number] Insurance:MEDICAL HAGANSDOB: [facility] [id number] Wing [facility], [place] Number: Repository [id number]: 330 [id number] [phone] (HP) Date:5640-11-87ED [address] [address]WO: 12/17/2017 Secondary NOT GIVENUNK Esther Insurance:SELF PAY [facility] Number: Effective Repository Date:2017-12-17 12/05/2017 NANCY Rome Primary NANCY Santana [id number] Insurance:MEDICAL HAGANSDOB: [facility] [id number] Number: Repository [id number]: 330 [id number] -[phone] (HP) Date:5427-25-72KE [address] [address]PD: 12/05/2017 Secondary NOT GIVENUNK [place] Insurance:SELF PAY [facility] Number: Effective Repository Date:2017-12-05 11/13/2017 NANCY Rome Primary NANCY Santana [id number] Insurance:MEDICAL HAGANSDOB: [facility] [id number] Number[place]ository [id number]: 330 [id number] 330 () Date:7217-10-82PG [address] [address]HZ: 11/13/2017 Secondary NOT GIVENUNK Esther Insurance:SELF PAY [facility] Number: Effective Repository Date:2017-09-12 10/24/2017 NANCY Rome Primary NANCY Santana [id number] Insurance[facility] [id number] Number: Repository [id number]: 330 [id number] () Date:1454-51-70FR [address] [address]WE: 10/24/2017 Secondary NOT GIVENUNK Esther Insurance:SELF PAY [facility] Number: Effective Repository Date:2017-10-24 10/23/2017 NANCY Rome Primary NANCY Santana [id number] Insurance:MEDICAL HAGANSDOB: [facility] [id number] Number[place] Repository [id number]: 330 [id number] 330 () Date:7411-72-06XT [address] [address]HU: 10/23/2017 Secondary NOT GIVENUNK Esther Insurance:SELF PAY [facility] Number: Effective Repository Date:2017-10-23 07/12/2017 NANCY [id number] Primary NANCY ALMEIDADOB: [place] [facility]ICAL [id number] [address]Tat: 330) Number: Repository [phone] () [id number] Date:8887-73-80JX [address] [address]CI: 07/12/2017 Secondary NOT GIVENUNK [place] Insurance:SELF PAY [facility] Number: Effective Repository Date:2017-07-25 04/16/2017 NANCY [id number] Primary NANCY ZAMORANOB: Esther GUAMAN Insurance:MEDICAL [id number] [facility] [address]Pzk: Number: Repository [phone] [id number] () Date:3402-78-23IV [address] [place] [address]DX: 04/16/2017 Secondary NOT GIVENUNK Esther Insurance:SELF PAY [facility] Number: Effective Repository Date:2017-04-16
== END ==
PROVIDERS: Family Provider Family Medicine; PCP Family Medicine; Referring Provider Chiropractor; Visit Provider Chiropractor
DX: M22.40 Chondromalacia patellae, unspecified knee (principal)
CPT/HCPCS: 73721

== ENCOUNTER → 2018-01-31 16:37 | Outpatient (CLI) | payer OTHER, SELFPAY ==
[2017-12-30 10:11] VITALS: BMI 26.8
[2018-01-31 19:27] LABS: Chlamydia Trachomatis by PCR Negative (Negative); Neisserai gonorrhoeae by PCR Negative (Negative); Probe Check PASS; Sample Adequacy Control PASS; Specimen Processing Control PASS
== END ==
PROVIDERS: Visit Provider Obstetrics & Gynecology
DX: Z11.3 Encounter for screening for infections with a predominantly sexual mode of transmission (principal)
CPT/HCPCS: 87491; 87591

== ENCOUNTER → 2018-02-13 11:48 | Outpatient (CLI) | payer OTHER, SELFPAY ==
[2017-12-30 10:11] VITALS: BMI 26.8
[2018-02-13 15:51] LABS: Color, Urine Yellow (Yellow); Glucose, Dipstick Normal (Normal); Ketone-Dipstick Negative (Negative); Leukocyte Esterase-Dipstick Negative /ul (Negative); Nitrite-Dipstick Negative (Negative); Occult Blood-Urine Negative /ul (Negative); Protein-Dipstick Negative (Negative); Urine Bilirubin Dipstick Negative (Negative); Urine Clarity Clear (Clear); Urine Urobilinogen Normal (Normal)
[2018-02-13 16:08] LABS: Basophil# 0.02 X10^3/uL; Basophil% 0.2 % (0-1); Eosinophil# 0.07 X10^3/uL; Eosinophils% 0.8 % (0-5); Hematocrit 42.5 % (37-47); Hemoglobin 13.9 g/dl (12.0-15.0); Lymphocyte % 21.1 % (19-41); Mean Corp Hgb Conc 32.7 g/gl (32-36); Mean Corpuscular Volume 85.7 fL (81-99); Mean Platelet Vol. 9.7 fl (6.2-12.0); Monocyte# 0.58 X10^3/uL; Monocyte% 6.8 % (0-10); Neutrophil # 6.03 X10^3/uL (2.7-7.7); Neutrophil % 70.9 % (47-70); Platelet Count 304 K/mm3 (150-450); RBC Distribution Width CV 13.2 % (11.6-14.6); RBC Distribution Width SD 40.9 fl (35.1-43.9); Red Blood Count 4.96 M/mm3 (4.2-5.4); White Blood Count 8.5 K/mm3 (4.4-11.0)
[2018-02-13 16:22] LABS: Thyroid Stim Hormone (TSH) 0.31 uIU/mL (0.358-3.74)
[2018-02-13 16:32] LABS: POSITIVE COUNT NO; POSITIVE DIFFERENTIAL NO; POSITIVE MORPHOLOGY NO
[2018-02-13 16:36] LABS: Amphetamine Urine VISTA NEGATIVE (<1000 ng/mL); Barbiturate Urine VISTA NEGATIVE (< 200 ng/mL); Benzodiazepine Urine VISTA NEGATIVE (< 200 ng/mL); Cocaine Urine VISTA NEGATIVE (< 300 ng/mL); Ecstacy Urine VISTA NEGATIVE (< 500 ng/mL); Methadone Urine VISTA NEGATIVE (< 300 ng/mL); PCP Urine VISTA NEGATIVE (< 25 ng/mL); THC Urine VISTA NEGATIVE (< 50 ng/mL); Vista UDS pH Range 5
[2018-02-13 16:57] LABS: HIV - WCH Non-Reactive (Nonreactive); Rubella IgG 35.1 IU/mL
[2018-02-15 03:31] LABS: Prenatal RPR NONREACTIVE (NONREACTIVE)
[2018-02-15 12:30] LABS: HEPATITIS B SURFACE AG Negative (Negative); Hep C Antibodies <0.1 s/co ratio (0.0-0.9)
== END ==
PROVIDERS: Visit Provider Obstetrics & Gynecology
DX: Z34.81 Encounter for supervision of other normal pregnancy, first trimester (principal)
CPT/HCPCS: 36415; 80307; 81002; 84443; 85025; 86703; 86762; 86803; 87340

== ENCOUNTER → 2018-03-14 16:42 | Outpatient (CLI) | payer OTHER, SELFPAY ==
[2017-12-30 10:11] VITALS: BMI 26.8
== END ==
PROVIDERS: Visit Provider Obstetrics & Gynecology
DX: N39.0 Urinary tract infection, site not specified (principal)
CPT/HCPCS: 87086

== ENCOUNTER → 2018-07-10 | Outpatient (CLI) | payer OTHER, SELFPAY ==
[2017-12-30 10:11] VITALS: BMI 26.8
[2018-07-10 11:10] LABS: Glucose Challenge Gest 1H 50g 87 mg/dL (70-140)
[2018-07-10 11:12] LABS: Hematocrit 40.1 % (37-47); Hemoglobin 13.5 g/dl (12.0-15.0); Mean Corp Hgb Conc 33.7 g/gl (32-36); Mean Corpuscular Hgb 30.3 pg (27.0-32.0); Mean Corpuscular Volume 89.9 fL (81-99); Mean Platelet Vol. 9.4 fl (6.2-12.0); Platelet Count 255 K/mm3 (150-450); RBC Distribution Width CV 13.3 % (11.6-14.6); Red Blood Count 4.46 M/mm3 (4.2-5.4); White Blood Count 8.1 K/mm3 (4.4-11.0)
[2018-07-10 11:14] LABS: Scan Indicated on CBC? Y/N NO
== END | disposition home or self-care (01) ==
LOC: WOBLAB 09:41
PROVIDERS: Visit Provider Obstetrics & Gynecology
DX: Z34.83 Encounter for supervision of other normal pregnancy, third trimester (principal)
CPT/HCPCS: 36415; 82950; 85027; 86850

== ENCOUNTER → 2018-08-21 | Outpatient (CLI) | payer OTHER, SELFPAY ==
[2017-12-30 10:11] VITALS: BMI 26.8
== END | disposition home or self-care (01) ==
LOC: LABSPEC 13:38
PROVIDERS: Visit Provider Obstetrics & Gynecology
DX: Z36.85 Encounter for antenatal screening for Streptococcus B (principal)
CPT/HCPCS: 87081

== ENCOUNTER 2018-09-12 15:30 | Inpatient (IN) | payer OTHER, SELFPAY ==
[2017-12-30 10:11] VITALS: BMI 26.8
--- NOTE | 2018-09-12 16:15 | HP.PCM_ITS ---
History and Physical Date of Admission: 09/12/18 OB HISTORY AND PHYSICAL EXAMINATION History of this : 28 yo female Ab0 with EDC 09/20/2018 by 8 weeks 5 days Ultrasound, presents to Labor and Delivery at 38 6/7 wk with painful UCs. care remarkable for - O NEG, 1.) MSAFP and CF testing declined\ 2.) Torn meniscus right knee, plans repair post- 3.) First baby weighed 10 lbs 3 oz Pertinent Past Medical History: LGA first baby Allergies: Vicodin Medications: During - [place] 3-6-9 1,200 mg capsule; Multiple Vitamin, Women[facility] enatal + DHA 28 mg-975 mcg- 200 mg combo pack Review of Systems: Contractions PHYSICAL EXAMINATION General Appearance: 28 yo female in no acute distress Vital Signs: AF, VSS Heart: RRR without rubs or gallops Lungs: CTA x 2 Breasts: deferred Abdomen: gravid Pelvis: Cervix: 4 cm/ 70 Presentation: cephalic Station: Fetus: Size: AGA Movement: present Heart: Category I tracing, UC q 4 mins. Impression /Plan: Intrauterine . 38 2/7 wk EGA . Plans epidural. Admit, IV fluids. consider AROM, pitocin for augmentation prn. H and P generated at admission.
[2018-09-12 16:22] VITALS: BMI 30.9
[2018-09-12] MEDS: Lactated Ringers 1,000 ML 999 ML IV (16:30)
[2018-09-12 16:50] LABS: Absolute Lymphocyte Count 1.76 X10^3/uL (0.83-4.51); Absolute Neutrophil Count 8.1 X10^3/uL (2.0-7.7); Basophil# 0.01 X10^3/uL; Basophil% 0.1 % (0-1); Eosinophil# 0.06 X10^3/uL; Eosinophils% 0.6 % (0-5); Hematocrit 36.7 % (37-47); Hemoglobin 12.6 g/dL (12.0-15.0); Lymphocyte # 1.76 X10^3/ul (4.0); Lymphocyte % 16.3 % (19-41); Mean Corp Hgb Conc 34.3 g/dL (32-36); Mean Corpuscular Hgb 31.4 pg (27.0-32.0); Mean Corpuscular Volume 91.5 fL (81-99); Mean Platelet Vol. 9.8 fl (6.2-12.0); Monocyte# 0.79 X10^3/uL; Monocyte% 7.3 % (0-10); NRBC Flagged by Analyzer 0 % (0-5); Neutrophil # 8.07 X10^3/uL (2.7-7.7); Neutrophil % 74.7 % (47-70); RBC Distribution Width CV 12.6 % (11.6-14.6); RBC Distribution Width SD 42.3 fl (35.1-43.9); Red Blood Count 4.01 M/mm3 (4.2-5.4); White Blood Count 10.8 K/mm3 (4.4-11.0)
[2018-09-12 16:53] LABS: Platelet Count 219 K/mm3 (150-450)
[2018-09-12] MEDS: Lactated Ringers 1,000 ML 50 ML IV ×2 (17:15→22:08)
[2018-09-12] MEDS: fentaNYL-bupivacaine (epidural) 100 ML BAG EPIDURAL ×2 (17:16→21:53)
[2018-09-12] MEDS: Oxytocin 30 units/NS 500 ml 30 UNITS/500 ML IV.SOLN 167 UNITS IV (18:35)
--- NOTE | 2018-09-12 20:03 | PN_ITS ---
Progress Note LABOR PROGRESS NOTE 38 6/7 wk Comfortable w/ epidural h/o 10# delivery. AVSS Pitocin at 4 mIU/min EFM 110-120s with accels mod variability. Occasional lower baseline in 90- 100s with avg variability and accels. UCs q 3-4 mins CX: 4/70/-2 AROM mod clear A/P: Term IUP Labor. 38 6/7 wk with UCs. Admitted. Epidural placed. Pitocin augmentation. AROM. Continue labor. Reasuring EFM Consider IUPC
[2018-09-12] MEDS: Ondansetron 4 MG/2 ML Vial IV (22:48)
--- NOTE | 2018-09-12 22:53 | PCM.PN.BLA ---
Progress Note LABOR PROGRESS NOTE 38 6/7 wk labor Comfortable w/ epidural. Feeling more pressure. AVSS EFM 110-120s with some early declerations, some variables, nonrepetitive lates. (resolved with position changes) Avg variability and accels noted. UCs CX: 6 A/P: 38 6/7 wk labor. Pitocin augmentation, AROM. Zofran IV for Nausea. Continue labor. EFM reassuring , category I . Anticipate
[2018-09-13] MEDS: Oxytocin 30 units/NS 500 ml 30 UNITS/500 ML IV.SOLN 334 UNITS IV (00:38)
[2018-09-13] MEDS: Methylergonovine 0.2 MG/ML Ampul IM (00:43)
--- NOTE | 2018-09-13 00:55 | PCM.OPRPT ---
Vaginal Delivery Maternal Presentation: Active Labor 38 2/7 wk labor Amniotic Membrane Rupture Type: Artificial Amniotic Fluid Description: Clear Final ANU: 09/20/18 Final ANU Source: US <20 weeks Gestational age: 39 Weeks and 0 Days Date of Procedure: 09/13/18 Pre-Operative Diagnosis: 39 wk EGA labor Post-Operative Diagnosis: same Surgery/ Procedure Performed: Spontaneous Vaginal Delivery Type of Anesthesia: Epidural Description of Procedure: of a diana viable male over midline episiotomy. Head delivered GEORGE OP and nares bulb suctioned on perineum. No nuchal cord. Shoulders delivered easily with delivery of posterior shoulder/arm first. Infant to maternal abdomen for warming. Vigorous cry, good tone. Ap 8/9 Routine cord blood collected for typing. PP exam; midline episiotomy without extension. repaired to hemostatic and intact under epidural. 3-0 Vicryl for repair. No lacerations Placenta delivered by spont expulsion, expression 3V cord, normal appearing and intact with trailing membranes. EBL 350 cc Pt and infant tolerated delivery well To recovery, stable condition [employer] and needle counts correct times two. Presentation: Vertex, GEORGE Placental Delivery Description: Spontaneous, Expressed Placenta Disposition: [facility] Cord Vessel Description: 3 Vessels Cord Entanglement: None Drain: Shelby to straight drain Estimated Blood Loss: 350 Infant A gender: Male (1 minute): 8 (5 minute): 9 Episiotomy Description: Midline - midline episiotomy without extension Laceration: None Medications given after delivery: IV Pitocin, IM Methergin - given prophylactically Complications: None
--- NOTE | 2018-09-13 00:59 | DCINST_ITS ---
Discharge Diet: No Restrictions Discharge Activity: May Shower, May Take a Tub Bath May resume sexual activity in: 4-6 weeks Additional Activity Instructions:: Nothing in the vagina for 4-6 weeks. You may return to work/school in 6 weeks. Additional Instructions: If you experience any of the following, contact your healthcare provider. * Bleeding that soaks a pad every hour for 2 hours * Fever 100.4 or higher * Unrelieved abdominal pain * Problems urinating (including inability to urinate or burning while urinating). * Visual changes * Severe headache * Flu-like symptoms * Pain or redness in one of both of your breasts * Pain, warmth, tenderness or swelling in your legs, especially the calf area * Frequent nausea and vomiting * Symptoms of depression or anxiety If you experience any of the following, call 911 or go to the nearest Emergency Room. * Chest pain * Problems breathing * Seizure activity * Partial or complete paralysis of a body part, slurred speech, weakness or drooping of the face, or a sudden inability to walk or hold your balance Allergies/Adverse Reactions: Allergies acetaminophen [From Vicodin] Adverse Reaction (Verified 09/12/18 16:25) Itching hydrocodone [From Vicodin] Adverse Reaction (Verified 09/12/18 16:25) Itching Medications to take at Discharge Vits [Prenatabs FA ] 09/12/18 Please Follow Up With: Baldomero Rich MD - [phone] When: Call to make an appointment with your doctor in 6 weeks. Primary Care Physician: Zachery Oconnor MD [Primary Care Provider] - Test Results: Test results from this visit will be discussed in further detail at your follow- up appointment, if applicable. Proposed Discharge Date: 09/15/18
--- NOTE | 2018-09-13 00:59 | PCM.DCVAG ---
Discharge Diet: No Restrictions Discharge Activity: May Shower, May Take a Tub Bath May resume sexual activity in: 4-6 weeks Additional Activity Instructions:: Nothing in the vagina for 4-6 weeks. You may return to work/school in 6 weeks. Additional Instructions: If you experience any of the following, contact your healthcare provider. Bleeding that soaks a pad every hour for 2 hours Fever 100.4 or higher Unrelieved abdominal pain Problems urinating (including inability to urinate or burning while urinating). Visual changes Severe headache Flu-like symptoms Pain or redness in one of both of your breasts Pain, warmth, tenderness or swelling in your legs, especially the calf area Frequent nausea and vomiting Symptoms of depression or anxiety If you experience any of the following, call 911 or go to the nearest Emergency Room. Chest pain Problems breathing Seizure activity Partial or complete paralysis of a body part, slurred speech, weakness or drooping of the face, or a sudden inability to walk or hold your balance Allergies/Adverse Reactions: Allergies acetaminophen [From Vicodin] Adverse Reaction (Verified 09/12/18 16:25) Itching hydrocodone [From Vicodin] Adverse Reaction (Verified 09/12/18 16:25) Itching Medications to take at Discharge Vits [Prenatabs FA ] 09/12/18 Please Follow Up With: Baldomero Rich MD - [phone] When: Call to make an appointment with your doctor in 6 weeks. Primary Care Physician: Zachery Oconnor MD [Primary Care Provider] - Test Results: Test results from this visit will be discussed in further detail at your follow-up appointment, if applicable. Proposed Discharge Date: 09/15/18
[2018-09-13] MEDS: Oxytocin 30 units/NS 500 ml 30 UNITS/500 ML IV.SOLN 167 UNITS IV (01:08)
[2018-09-13] MEDS: 0.9% Saline Lock 10 ML Syringe IV (02:08)
[2018-09-13 05:09] VITALS: BP 108/70; PULSE 85; RESP 18; TEMP 36.5
[2018-09-13] MEDS: Acetaminophen 500 MG Tablet 1000 MG PO ×2 (05:26→13:04)
[2018-09-13] MEDS: Prenatal Vits Tablet 1 TABLET PO (08:25)
[2018-09-13] MEDS: Senna/Docusate Sodium 1 Tablet PO ×2 (08:25→14:35)
[2018-09-13] MEDS: Ibuprofen 600 MG Tablet PO ×3 (08:25→21:49)
[2018-09-13 08:31] VITALS: BP 109/56; PULSE 71; RESP 18; TEMP 37
--- NOTE | 2018-09-13 08:44 | PCM.PN.OB ---
Subjective: Day of Delivery Doing well. Nrusing. Baby 9# 2 oz with prior baby at 10# Bleeding as a period. No concerns voiced. - Physical Exam General: Alert, Oriented x3, Cooperative, No apparent distress HEENT: Atraumatic, EOMI Neck: Supple Abdomen: Soft - Fundus firm NT inferior to umbilicus Psych/Mental Status: Normal Affect Vital Signs Temp Pulse Resp BP 98.6 F 71 18 109/56 L 09/13/18 08:31 09/13/18 08:31 09/13/18 08:31 09/13/18 08:31 Oxygen Delivery Method Room Air Weight: 87.09 kg Body Mass Index (BMI) 30.9 Intake and Output for Last 24 Hours 09/11/18 09/12/18 09/13/18 23:59 23:59 23:59 Intake Total 2153 / 2153 Output Total 600 / 600 1120 / 1120 Balance 1553 / 1553 -1120 / -1120 Laboratory Tests Past 24 Hrs 09/12/18 09/12/18 09/13/18 16:30 16:30 02:39 WBC 10.8 RBC 4.01 L Hgb 12.6 Hct 36.7 L MCV 91.5 MCH 31.4 MCHC 34.3 RDW Std Deviation 42.3 RDW Coeff of Michelle 12.6 Plt Count 219 MPV 9.8 Immature Gran % (Auto) 1.000 H Neut % (Auto) 74.7 H Lymph % (Auto) 16.3 L [place] % (Auto) 7.3 Eos % (Auto) 0.6 Baso % (Auto) 0.1 Absolute Neuts (auto) 8.1 H Absolute Lymphs (auto) 1.76 Nucleated RBC % 0 Blood Type O NEGATIVE Antibody Screen NEGATIVE Screen NEGATIVE Baby's Blood Type A POSITIVE Baby's JEWELL POSITIVE Medical Necessity - Tobacco Use Smoking Status: Never smoker Assessment/Plan All Active Problems (Last Reviewed 12/17/17 @ 08:04 by Kaelyn Tracy) Pharyngitis (Acute) UTI (urinary tract infection) (Acute) URI, acute (Acute) Day of delivery Stable pp. Continue routine pp care.
[2018-09-13 12:51] VITALS: BP 105/78; PULSE 66; RESP 18; TEMP 36.7
[2018-09-13 16:00] VITALS: BP 126/73; PULSE 77; RESP 18; TEMP 36.9
[2018-09-13 19:35] VITALS: BP 117/72; PULSE 67; RESP 16; TEMP 36.6
[2018-09-13] MEDS: Dibucaine 30 GM Tube 1 APPLIC TOPICAL (21:54)
[2018-09-14 01:50] VITALS: BP 113/62; PULSE 75; RESP 16; TEMP 36.6
--- NOTE | 2018-09-14 05:17 | PCM.PN.OB ---
Subjective: No issues overnight. Cramping with nursing. She is out of bed, had a bowel movement. Denies heavy lochia. Infant nursing well. Objective: AVSS - Physical Exam General: Alert HEENT: Atraumatic, Normocephalic Lungs: Clear to auscultation, Normal air movement Cardiovascular: Regular rate, Regular Rhythm, Normal S1, Normal S2 Abdomen: Soft, Non Tender, Non-Distended, - - Fundus firm and nontender Extremities: No edema, No Calf Tenderness Neurological: Neuro grossly intact Psych/Mental Status: Normal Affect, Appropriate, Alert and oriented to time, place, person, mood and affect Vital Signs Temp Pulse Resp BP 97.8 F 75 16 113/62 09/14/18 01:50 09/14/18 01:50 09/14/18 01:50 09/14/18 01:50 Oxygen Delivery Method Room Air Weight: 87.09 kg Body Mass Index (BMI) 30.9 Intake and Output for Last 24 Hours 09/12/18 09/13/18 09/14/18 23:59 23:59 23:59 Intake Total 2153 / 2153 Output Total 600 / 600 1120 / 1120 Balance 1553 / 1553 -1120 / -1120 Medical Necessity - Tobacco Use Smoking Status: Never smoker Assessment/Plan All Active Problems (Last Reviewed 12/17/17 @ 08:04 by Kaelyn Tracy) Pharyngitis (Acute) UTI (urinary tract infection) (Acute) URI, acute (Acute) PPD#2 s/p doing well. - -Rh neg, infant Rh pos - pt s/p Rhogam -Routine care -d/c home today
[2018-09-14] MEDS: Senna/Docusate Sodium 1 Tablet PO ×2 (08:33→14:29)
[2018-09-14] MEDS: Ibuprofen 600 MG Tablet PO (08:33)
[2018-09-14 10:00] VITALS: BP 100/64; PULSE 76; RESP 16; TEMP 36.6
[2018-09-14 14:00] VITALS: BP 124/69; PULSE 77; RESP 18; TEMP 36.8
[2018-09-14] MEDS: Prenatal Vits Tablet 1 TABLET PO (14:29)
--- NOTE | 2018-09-14 15:42 | NURSING ---
1450 Excited to go home, states she feels able to care for herself and baby. Discharged with baby in carseat via wheelchair to car.
== END 2018-09-14 14:50 | disposition home or self-care (01) | DRG 807 ==
PROVIDERS: Admitting Provider Obstetrics & Gynecology; Family Provider Family Medicine; PCP Family Medicine; Referring Provider Obstetrics & Gynecology; Visit Provider Obstetrics & Gynecology
DX: O9A.22 Injury, poisoning and certain other consequences of external causes complicating childbirth (principal); Z37.0 Single live birth; S83.206A Unspecified tear of unspecified meniscus, current injury, right knee, initial encounter; X58.XXXA Exposure to other specified factors, initial encounter; Y93.9 Activity, unspecified; Y92.9 Unspecified place or not applicable; Y99.9 Unspecified external cause status; Z3A.39 39 weeks gestation of pregnancy
CPT/HCPCS: 59025; 59050; 85025; 85461; 86850; 86900; 90384; 99218; J7120; A4216; G0378; J2405; J2790

== ENCOUNTER → 2018-10-28 | Outpatient (CLI) | payer OTHER, SELFPAY ==
[2018-10-15 10:34] VITALS: BMI 30.9
[2018-10-31 15:19] LABS: HPV Reflexed? NOT INDICATED
== END | disposition home or self-care (01) ==
LOC: LABSPEC 15:11
PROVIDERS: Visit Provider Obstetrics & Gynecology
DX: Z12.4 Encounter for screening for malignant neoplasm of cervix (principal)
CPT/HCPCS: 87624; 88175; G0145

== ENCOUNTER 2018-11-06 08:10 | Day surgery (SDC) | payer OTHER, SELFPAY ==
[2018-10-15 10:34] VITALS: BMI 30.9
--- NOTE | 2018-10-15 11:18 | HP_ITS ---
I have re-examined the patient. There are no clinical changes since date of exam. Intake Vital Signs 10/15/18 Body Mass Index (BMI) 30.9 Intake Visit Reasons: R. KNEE Chief Complaint: congestion/pink eye Allergies acetaminophen [From Vicodin] Adverse Reaction (Verified 10/13/18 09:02) Itching hydrocodone [From Vicodin] Adverse Reaction (Verified 10/13/18 09:02) Itching Medications Vits [Prenatabs FA ] 09/12/18 [History Confirmed 10/15/18] ascorbic acid 125 mg-collagen, hydrolyzed 740 mg capsule cap PO cap 10/13/18 [History Confirmed 10/15/18] [facility] Medical History (Updated 09/12/18 @ 16:17 by Theresa Lindo MD) Gave to child recently (Acute) Family History (Updated 04/16/17 @ 16:50 by Kaelyn Tracy) Other Bleeding disorder Diabetes Social History (Updated 10/15/18 @ 11:22 by Joana York DO) Smoking Status: Never smoker alcohol intake: never HPI R. KNEE: Surgical H&P: Yes Details: Parts of this documentation were recorded by a scribe, this documentation accurately reflects the service provided and the decisions made by me, Joana York DO 10/15/18 1033. NANCY ALMEIDA is a 28 year old F here today for right knee. Patient is here today to sign surgery consent for right medial repair vs meniscectomy. She was training for a half marathon last July when her knee began. She has completed PT and had an MRI completed that is here for review. She complains of clicking and pain with stairs and lunging. Patient has occasional non-painful popping and occasional medial sided knee pain. Denies numbness, tingling or other associated symptoms. Patient is 4 weeks post . ROS Const Reports system reviewed and no additional complaints, except as docu Eyes Reports system reviewed and no additional complaints, except as docu ENT Reports system reviewed and no additional complaints, except as docu Card Reports system reviewed and no additional complaints, except as docu Resp Reports system reviewed and no additional complaints, except as docu GI Reports system reviewed and no additional complaints, except as docu Musc Reports as per HPI Skin/Breast Reports system reviewed and no additional complaints, except as docu Neuro Yes system reviewed and no additional complaints, except as docu Psych Reports system reviewed and no additional complaints, except as docu Endo Reports system reviewed and no additional complaints, except as docu Bobby/Lymph Reports system reviewed and no additional complaints, except as docu Aller/Immun Reports system reviewed and no additional complaints, except as docu Ortho Exam Right Knee Homans Sign: No Knee ROM: Yes ROM-Extension -20 to 0, Yes ROM-Flexion 0-140 Examination: Yes Med jt line tenderness, Yes Pain with flexion No rales rhonchi wheezing, no abdominal pain, no abdominal no audible bruits Assessment & Plan Problems 1. Tear of right meniscus as current injury, subsequent encounter S83 Plan Reviewed the pre-operative plans with the patient. Risks and benefits of the procedure were fully explained, including but not limited to infection, neurovascular injury, continued pain, arthritis, stiffness, need for further surgery, re-injury, DVT, PE, general risks of anesthesia, and loss of limb or life. The patient understands all the risks and does wish to proceed with written consent for knee arthroscopy medial meniscus repair vs meniscectomy. Follow up post op or sooner if pain, swelling, numbness or associated symptoms, or concerns develop. All questions answered. Patient in agreement of plan. Coding Level of Care Code Off vis,est,level 4 Diagnoses Tear of right meniscus as current injury, subsequent encounter S83.D ??Encounter type: subsequent encounter 10/15/18 1123 <Electronically signed by Joana almendarez DO> Date _ Joana York DO
[2018-11-06 08:36] VITALS: BP 111/78; PULSE 77; RESP 16; TEMP 37; O2SAT 100; BMI 27.8
[2018-11-06 08:39] LABS: Internal QC Validated? YES +Cl - CLEAR BKGD; Pregnancy, Urine Negative Negative
[2018-11-06] MEDS: Lactated Ringers 1,000 ML 100 ML IV (08:45)
[2018-11-06] MEDS: Cefazolin 2 GM in 0.9% Normal Saline 100 ML IV (12:11)
--- NOTE | 2018-11-06 12:21 | DCINST_ITS ---
Discharge Diet: No Restrictions - ttwb right leg, brace locked in extension during ambulation and at night, may range of motion 0-30 to while seated, follow-up on Sunday with Yoni weight for dressing change and brace adjustment, call with increased pain numbness tingling or other issues arise Discharge Activity: May Not Drive May shower in (days): 1 Ice area for (Minutes): 20 - Every hour while awake. Weight Bearing Status: Weight bearing as tolerated Keep extremity elevated above heart level: Operative Extremity Call your doctor if your incision/area has: Continuous Slow Oozing, Sudden Increased Bleeding, Increased Pain/ Swelling, Increased Redness, Foul Smelling Discharge Call your doctor if you observe: Fever of 101 or Higher, Coldness, Increased Pain, Numbness or Tingling, Change in Color, Calf discomfort Allergies/Adverse Reactions: Allergies acetaminophen [From Vicodin] Adverse Reaction (Verified 11/06/18 08:35) Itching hydrocodone [From Vicodin] Adverse Reaction (Verified 11/06/18 08:35) Itching Medications to take at Discharge Vits [Prenatabs FA ] 1 tab PO DAILY 09/12/18 ascorbic acid 125 mg-collagen, hydrolyzed 740 mg capsule 1 cap PO DAILY cap 10/13/18 Primary Care Physician: Zachery Oconnor MD [Primary Care Provider] - Test Results: Test results from this visit will be discussed in further detail at your follow- up appointment, if applicable. Please Follow Up With: Joana York, - [phone]
--- NOTE | 2018-11-06 12:21 | OP.PCM_ITS ---
Report of Operation Date of Procedure: 11/06/18 Pre-Operative Diagnosis: right knee medial meniscus tear, synovitis Post-Operative Diagnosis: same, patella chondromalacia Surgery/Procedure Performed:: right knee medial meniscectomy, medial meniscus repair, patella and mfc chondroplasty trademark paralegal: Sanjiv Ruggiero Type of Anesthesia:: General Anesthesiologist: Mehran Rich Estimated Blood Loss (mL): minimal Fluids Replaced: 800cc lr Description of Procedure: Preop note Next Patient is a 28-year-old female with continued right knee pain for quite some time. Patient was was unable to have surgery however now that she is had her child she is often would like surgery done soon as possible as she is on maternity leave. Patient failed conservative treatment and elected proceed with right knee arthroscopy repair as indicated. Risk benefits and alternatives were discussed with patient. Risks including but not limited to blood loss, blood clot, infection, neurovascular, failure procedure, loss of life and loss of limb. Patient has a medial meniscus tear confirmed on MRI and some synovitis. We will perform a right knee arthroscopy repair as indicated. Operative note Patient seen and examined preoperative holding area. Right knee was marked. Patient brought to the operating room placed supine on the operating table. Signed, anesthesia, antibiotics were administered. The right leg was prepped and draped in usual sterile fashion with a tourniquet around her upper thigh. All bony prominences well-padded SCDs placed on her contralateral limb. We marked out our incisions for her anteromedial anterolateral portal placement. The right leg was elevated exsanguinated and tourniquet was raised to her pressure of 250 torr. We then used an 11 blade to create a anterolateral portal under after timeout was performed. We began with our diagnostic arthroscopy was difficult to get into her knee due to the extent of synovitis. We created an anterior medial portal under direct visualization and then resected the hyper trophic synovitis in the anteromedial and anterolateral recesses with a shaver. She also had a large plica that was abrading the medial femoral condyle which was also debrided in the medial femoral condyle was debrided as well. She also has an undersurface fibrillated changes on the inferior pole of patella and this was debrided with a shaver as well. We then moved to the medial joint line. The medial femoral condyle medial tibial plateau were intact and stable probing. The medial meniscus was unstable as posterior to mid body with the root was attached. ACL PCL present within the notch. The lateral meniscus was intact and stable probing the lateral femoral condyle and lateral tibial plateau were intact and stable probing. We then debrided back to the tear with a shaver and a rasp as well to instill bleeding and facilitate healing. We then placed 5 re verse curved 360 FasT-Fix devices sutures across the root tear. We then reinserted probe to ensure that we had good repair fixation which we did have there is no longer unstable. We then performed a notch microfracture in order to get blood flow and to also facilitate healing of the medial meniscus repair. There was a little bit of undersurface tearing of the medial meniscus please note this was gently debrided with a shaver prior to placing our reverse curve devices. The knee was then irrigated with copious muscle sterile saline the portals were closed with interrupted nylon stitches the portals were closed with a injected with 10 cc of 1/4% bupivacaine. Sterile dressings were applied and a brace was applied to the right knee. Patient tolerated procedure well no complication transferred recovery room in stable condition. Next Postoperative Next Tylenol or ibuprofen for pain as Call with increased pain or other issues Ice ankle pumps elevate Follow-up in Sunday with Yoni Call with increased pain numbness tingling further issues arise This note was generated with [employer]edicat dictation software. It may contain incorrect words, spelling, and punctuation that were not noted in checking the note before signing.
[2018-11-06] MEDS: Epinephrine (1 mg/ml) 1 MG/ML VIAL (13:00)
[2018-11-06] MEDS: Mupirocin Ointment 22gm Tube 1 APPLIC (13:00)
[2018-11-06 13:27] VITALS: BP 102/73; BP 111/78; PULSE 55; RESP 14; TEMP 36.8; O2SAT 100
[2018-11-06 13:30] VITALS: BP 102/85; BP 111/78; PULSE 55; RESP 16; O2SAT 99
[2018-11-06 13:45] VITALS: BP 104/75; BP 111/78; PULSE 56; RESP 16; O2SAT 99
[2018-11-06 14:08] VITALS: BP 110/71; BP 111/78; PULSE 64; RESP 16; TEMP 36.9; O2SAT 98
[2018-11-06] MEDS: HYDROcodone Bitartrate/Apap 5/325 Tablet PO (14:40)
[2018-11-06 15:20] VITALS: BP 106/70; BP 111/78; PULSE 65; RESP 16; TEMP 36.4; O2SAT 99
== END 2018-11-06 15:45 | disposition home or self-care (01) ==
LOC: SDC 08:11 → AC 08:13
PROVIDERS: Anesthesiology; Family Provider Family Medicine; PCP Family Medicine; Referring Provider Orthopaedic Surgery; Visit Provider Orthopaedic Surgery
PROC: (CPT 29870; principal; 2018-11-06 09:25)
DX: S83.241A Other tear of medial meniscus, current injury, right knee, initial encounter (principal); M65.9 Synovitis and tenosynovitis, unspecified; X58.XXXA Exposure to other specified factors, initial encounter; Y93.89 Activity, other specified; Y92.89 Other specified places as the place of occurrence of the external cause; Y99.8 Other external cause status
CPT/HCPCS: 29881; 29882; 81025; J7120; J2405

== ENCOUNTER → 2019-04-09 20:06 | Outpatient (CLI) | payer OTHER, SELFPAY ==
[2019-02-25 09:06] VITALS: BMI 27.8
== END ==
PROVIDERS: PCP Family Medicine; Referring Provider Obstetrics & Gynecology; Visit Provider Obstetrics & Gynecology
DX: O92.79 Other disorders of lactation (principal)
CPT/HCPCS: 99218; G0378

== ENCOUNTER 2019-04-16 16:00 | Outpatient (RCR) | payer OTHER, SELFPAY ==
[2018-11-19 08:10] VITALS: BMI 27.8
--- NOTE | 2018-11-26 13:57 | HP.PTEVAL_ITS ---
Patient's Visit Information NANCY ALMEIDA is a 28 year old F referred to Physical Therapy by Joana York DO with a diagnosis of R knee med menisus repair. Date of Evaluation: 11/26/18 Physical Therapist: BEVERLY Kenny - Visit Plan Frequency: 3x /Week Duration: 4-6 Weeks Plan: 2-3X/ week for 6-12 weeks for R knee ROM ( up to 60 degrees flexion until RTD 12-17-18 and TTWB until then as well with cruthches). Pt will be seen 1 X/ week for mostly strengthening and to keep ROM until ROM and brace is either opened or wb restriction is lifted. Progress strength, ROM, gait training, functional activities, functional strength and resturn to I exercise rountine when she is able and restrictions lifted with Modaltities as needed and HEP. - Subjective Findings: After PT... had MRI and found torn meniscus in January but then found out she was and then 6 weeks after giving she had her surgery for R knee med menisus repar on 11-06-18. had to puncture holes in her bone and this is what she feels the most. said she will be on crutchs onto at least Dec 17. She RTD on Dec 17. She wears the brace all the time even to sleep and her brace is set for 60 degrees flexion. SHe is doing SLR and ER SLR and wants her to keep knee extended as much as possible so she does not lose that extension. She has to go back to school Sunday..... 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 She is walking NWB with crutches.... she puts a little weight down on the ground if she is standing. She has fallen a few times. Stairs are a problem. 2-3 steps into her house are a choir and her classroom is on the second floor. - Pain R knee pain Pain Intensity (Out of 10): 0 - Objective Gait: walks with 2 crutches with NWB on the R knee. R 34.5 tibial tub, 37.6 infratellar , suprapatella 40.9. L 32.8, 35.4, 39. R knee AROM: 0 degrees extension and. L knee AROM: 0- 141 degrees L knee flexion. R SLR I with no extensor lag, weakness present with s/L hip abd - Goals Goal 1:: I HEP Goal Time Frame: 4-6 Weeks Goal 2:: Be able to have 0-125 degrees R knee AROM by D/C Goal Time Frame: 4-6 Weeks Goal 3:: Be able to walk with a normal gait pattern without any antalgic gait by DC. Goal Time Frame: 4-6 Weeks Goal 4:: Be able to increase R knee and hip strength to 4/5 by DC Goal Time Frame: 4-6 Weeks - Rehabilitation Potential Rehabilitation Potential: Good - Anticipated Interventions Patient/Client Instruction: Educate patient on: Condition, Plan of Care For the Purpose of:: To decrease pain, To decrease swelling/inflammation, To increase ROM, To improve nutrient delivery to tissue, To improve muscle performance and motor function, To improve ability to perform ADL's, To increase tolerance to activity/condition/position, To improve performance and independence with ADL's, To decrease level of supervision to perform tasks, To improve ability of physical actions for home/community/work/leisure, To improve gait and locomotor functions, To improve health of tissue, To decrease soft tissue restriction, To increase flexibility/ROM, To improve balance, To improve safety with gait Therapeutic Exercise to Include: Strength training, Flexibilty training, Gait and locomotor training, Passive ROM, Active ROM For the Purpose of:: To decrease pain, To decrease swelling/inflammation, To increase ROM, To improve nutrient delivery to tissue, To increase oxygenation perfusion, To improve muscle performance and motor function, To improve ability to perform ADL's, To increase tolerance to activity/condition/position, To i mprove performance and independence with ADL's, To decrease level of supervision to perform tasks, To improve ability of physical actions for home/community/work/leisure, To improve gait and locomotor functions, To improve health of tissue, To decrease soft tissue restriction, To increase flexibility/ROM, To improve balance, To improve safety with gait Functional Training to Include: Gait training For the Purpose of:: To improve gait and locomotor functions IF ES: Yes Cryotherapy (ice pack, ice massage): Yes For the Purpose of:: To decrease pain, To decrease swelling/inflammation, To increase ROM, To improve nutrient delivery to tissue Thank you for the opportunity to evaluate your patient. For Medicare and Medicare HMO plans, please review the plan of care and approve it. It will need to be FAXED BACK to us at [phone] for Medicare purposes. For Medicare only, by signing this I certify the plan of care. Please let me know if there are questions or concerns regarding this plan of care. Physician Signature : Date:
--- NOTE | 2019-03-26 17:26 | HP.PTREVAL ---
Dr. Joana York, DO, It has been my pleasure to treat NANCY ALMEIDA over the last 38 visits for R knee med menisus repair. Please see the progress note below for an update on the physical therapy plan of care! Subjective: Pt reports that she has been hurting. She started running last week... the first 2 min she was sore and then it would get better. She could not hopscotch last week here in the clinic. SHe was not super active since that week. She does not see the Dr until May. Now at home she is doing a bar workout at home. She can not carry her son up the stairs and she can not sit on the floor with him in her arms and stand up. SHe has to put him down and then stand up and then pick him up. No pain with reverse lunges but pain with regular lunges. Objective/Function: Pt has decrease eccentric control on the R leg. She likes to substitue trunk ROM instead of knee bending with Squating. Hopping... decrease landing on the R LE and increase valgus on the R knee. Plan Plan: 1X/ week for eccentric strength, progression with hopping, light running with additional HEP Goals Goal 1:: I HEP Goal Time Frame: 4-6 Weeks Goal Progress: Goal Met Goal 2:: Be able to have 0-125 degrees R knee AROM by D/C Goal Time Frame: 4-6 Weeks Goal Progress: Goal Met Goal 3:: Be able to walk with a normal gait pattern without any antalgic gait by DC. Goal Time Frame: 4-6 Weeks Goal 4:: Be able to increase R knee and hip strength to 4/5 by DC Goal Time Frame: 4-6 Weeks Goal Progress: Progressing Goal 5:: Be able to Lunge without having knee pain Goal Time Frame: 2-4 Weeks Goal 6:: Be able to squat and pick pulling machine tender son without having weekness and pain Goal Time Frame: 2-4 Weeks Goal Progress: Goal Met Anticipated Interventions Patient/Client Instruction: Educate patient on: Condition, Plan of Care For the Purpose of:: To decrease pain, To decrease swelling/inflammation, To increase ROM, To improve nutrient delivery to tissue, To improve muscle performance and motor function, To improve ability to perform ADL's, To increase tolerance to activity/condition/position, To improve performance and independence with ADL's, To decrease level of supervision to perform tasks, To improve ability of physical actions for home/community/work/leisure, To improve gait and locomotor functions, To improve health of tissue, To decrease soft tissue restriction, To increase flexibility/ROM, To improve balance, To improve safety with gait Therapeutic Exercise to Include: Strength training, Flexibilty training, Gait and locomotor training, Passive ROM, Active ROM For the Purpose of:: To decrease pain, To decrease swelling/inflammation, To increase ROM, To improve nutrient delivery to tissue, To increase oxygenation perfusion, To improve muscle performance and motor function, To improve ability to perform ADL's, To increase tolerance to activity/condition/position, To improve performance and independence with ADL's, To decrease level of supervision to perform tasks, To improve ability of physical actions for home/community/work/leisure, To improve gait and locomotor functions, To improve health of tissue, To decrease soft tissue restriction, To increase flexibility/ROM, To improve balance, To improve safety with gait Functional Training to Include: Gait training For the Purpose of:: To improve gait and locomotor functions IF ES: Yes Cryotherapy (ice pack, ice massage): Yes For the Purpose of:: To decrease pain, To decrease swelling/inflammation, To increase ROM, To improve nutrient delivery to tissue Please do not hesitate to contact me at [phone] by phone or if you have questions or concerns regarding this new plan of care! Sincerely, BEVERLY Kenny
--- NOTE | 2019-05-21 11:23 | HP.PTDCNRP_ITS ---
NANCY ALMEIDA was seen in my office for initial evaluation on 11/26/18. The following Plan of Care was established for this patient: Initial Frequency: 3x /Week Initial Duration: 4-6 Weeks Patient/Client Instruction: Educate patient on: Condition, Plan of Care For the Purpose of:: To decrease pain, To decrease swelling/inflammation, To increase ROM, To improve nutrient delivery to tissue, To improve muscle performance and motor function, To improve ability to perform ADL's, To increase tolerance to activity/condition/position, To improve performance and independence with ADL's, To decrease level of supervision to perform tasks, To improve ability of physical actions for home/community/work/leisure, To improve gait and locomotor functions, To improve health of tissue, To decrease soft tissue restriction, To increase flexibility/ROM, To improve balance, To improve safety with gait Therapeutic Exercise to Include: Strength training, Flexibilty training, Gait and locomotor training, Passive ROM, Active ROM For the Purpose of:: To decrease pain, To decrease swelling/inflammation, To increase ROM, To improve nutrient delivery to tissue, To increase oxygenation perfusion, To improve muscle performance and motor function, To improve ability to perform ADL's, To increase tolerance to activity/condition/position, To improve performance and independence with ADL's, To decrease level of supervision to perform tasks, To improve ability of physical actions for home/community/work/leisure, To improve gait and locomotor functions, To improve health of tissue, To decrease soft tissue restriction, To increase flexibili ty/ROM, To improve balance, To improve safety with gait Functional Training to Include: Gait training For the Purpose of:: To improve gait and locomotor functions IF ES: Yes Cryotherapy (ice pack, ice massage): Yes For the Purpose of:: To decrease pain, To decrease swelling/inflammation, To increase ROM, To improve nutrient delivery to tissue This patient was last seen in our office 04/16/19. Pertinent comments regarding their Physical therapy will appear below: JONO PT At this point I will be discontinuing this patient from physical therapy. I would be happy to see this patient again in the future if found appropriate by the physician. Thank you! Anupama Pena, MPT
== END 2019-04-16 19:00 | disposition home or self-care (01) ==
LOC: PT 16:00
PROVIDERS: Family Provider Family Medicine; PCP Family Medicine; Referring Provider Orthopaedic Surgery; Visit Provider Orthopaedic Surgery
DX: Z98.890 Other specified postprocedural states (principal)
CPT/HCPCS: 97014; 97032; 97110; 97161; 97164; G0283

== ENCOUNTER → 2019-04-17 20:15 | Outpatient (CLI) | payer OTHER, SELFPAY ==
[2019-02-25 09:06] VITALS: BMI 27.8
== END ==
PROVIDERS: PCP Family Medicine; Referring Provider Obstetrics & Gynecology; Visit Provider Obstetrics & Gynecology
DX: O92.79 Other disorders of lactation (principal)
CPT/HCPCS: 96158

== ENCOUNTER → 2019-07-31 | Outpatient (CLI) | payer OTHER, SELFPAY ==
[2019-05-13 13:21] VITALS: BMI 27.8
--- NOTE | 2019-07-31 13:42 | RAD_ITS ---
STUDY: X-RAY - RIGHT KNEE REASON FOR EXAM: Female, 29 years old. PAIN, FALL X2 WEEKS AGO, SURGERY LAST YR TECHNIQUE: 4 view(s) of the knee. COMPARISON: None. FINDINGS: Normal visualized distal femur. Normal visualized proximal tibia and fibula. Normal proximal tibiofibular articulation. Normal medial femorotibial compartment. Normal lateral femorotibial compartment. Normal patellofemoral articulation. The soft tissue structures are unremarkable. RAD/Knee 4 or More Views IMPRESSION: Normal x-ray examination of the knee. Electronically Signed: Jasen Chapin MD at 14:12 EDT , Service support ,
== END | disposition home or self-care (01) ==
LOC: HPRAD 13:39
PROVIDERS: PCP Family Medicine; Referring Provider Orthopaedic Surgery; Visit Provider Orthopaedic Surgery
DX: M25.561 Pain in right knee (principal)
CPT/HCPCS: 73564

== ENCOUNTER → 2019-09-16 | Outpatient (CLI) | payer OTHER, SELFPAY ==
[2019-07-31 14:07] VITALS: BMI 27.8
[2019-09-19 03:06] LABS: Chlamydia By Nucleic Acid AMP Negative (Negative)
[2019-09-19 04:44] LABS: Gonococcus By Nucleic Acid AMP Negative (Negative)
== END | disposition home or self-care (01) ==
PROVIDERS: PCP Family Medicine; Referring Provider Student in an Organized Health Care Education/Training Program; Visit Provider Student in an Organized Health Care Education/Training Program
DX: Z30.430 Encounter for insertion of intrauterine contraceptive device (principal); Z11.3 Encounter for screening for infections with a predominantly sexual mode of transmission
CPT/HCPCS: 87491; 87591

== ENCOUNTER 2019-09-30 15:00 | Outpatient (RCR) | payer OTHER, SELFPAY ==
[2019-05-13 13:21] VITALS: BMI 27.8
--- NOTE | 2019-07-30 12:53 | HP.PTEVAL_ITS ---
Patient's Visit Information NANCY ALMEIDA is a 29 year old F referred to Physical Therapy by Dr. Joana York DO with a diagnosis of R knee condromalacia and patellar tendonitis. Date of Evaluation: 07/30/19 Physical Therapist: BEVERLY Kenny - Visit Plan Frequency: 2x /Week Duration: 4 Weeks Plan: Await reassessment from Dr Marino.....Possible running analysis.... Focus on core stregth, and for with OHS..... - Subjective She still has clicking and grinding..... she is still . She has more discomfort when it used to be pain. She slipped down the stairs and her R leg took all the pressure and it hurt really bad and her pain is still in the front. She has pain when she bends her R knee and it is hard to get out of a flexed position. She feels that she has better eccentric contril compared to when she was here last time. She sees Dr Jamila llanos afternoon cause they cancelled her follow ups due to COVID. Chiropractor said that she thinks that she has patellar tendonitis. She has been seeing chiropractor 3 X/ week with TENS unit and it is feeling a little better. The Chiropractor gave her the patellar tendon brace. She is doing her exercises at home (Lift 4).... weight lifting... nojumping with her brace on. She does not have pain unless she does stairs (2-3/10). If she is siting Pan[place] Style she is good until she has to straighted her R leg (6/10)..... longer she sits like that the worse it gets. - Pain R knee pain Pain Intensity (Out of 10): 0 - Objective Gait: Walks with a normal gait pattern. Girth measurements: R tib tube 34.3, Infrapat 35.2, Suprapat 38.4. L tib tub 33.1, 35.5, 38.4. R knee AROM: 130 and 0 degrees extension. L knee AROM: 145 and 0 degrees extension. Palpation: R tender medial posterior joint line to deep palpation. No patellar tendon tenderness or any other tenderness. +popping with straightening her leg and + crepitus with flexion present with knee flexion on the R. LE MMT: R knee: flexion and extension 4/5, hip abd 4+/5, hip extension 4-/5. L knee: flexion and extension 4+/5, hip abd 4+/5, hip extension 4-/5. Pt is able to walk on heels and toes without issue or pain. Reverse lunge with R knee in back she has pain and hard to bend the R knee. Deep Squat in crease R patellar tendon pain/ anterior knee pain... pt weight shifts to her L side and flexed trunk with squat. Prone knee flxion ( unable to fully flex knee and has pain posteior medial knee joint line and pain anterior knee). - Goals Goal 1:: I HEP Goal Time Frame: 4-6 Weeks Goal 2:: Decrease knee pain up and down stairs with ascending/descending with the R knee Goal Time Frame: 4-6 Weeks Goal 3:: Be able to run with no pain Goal Time Frame: 4-6 Weeks Goal 4:: Be able to bend R knee witout feeling pain when trying to extend from the flexed position Goal Time Frame: 4-6 Weeks - Rehabilitation Potential Rehabilitation Potential: Good - Anticipated Interventions Patient/Client Instruction: Educate patient on: Condition, Plan of Care For the Purpose of:: To decrease pain, To increase ROM, To improve nutrient delivery to tissue, To improve muscle performance and motor function, To improve ability to perform ADL's, To increase tolerance to activity/condition/position, To improve ability of physical actions for home/community/work/leisure, To improve gait and locomotor functions, To improve health of tissue, To increase flexibility/ROM Therapeutic Exercise to Include: Strength training, Endurance training, Body mechanics, Flexibilty training, Gait and locomotor training, Passive ROM, Active ROM, Dynamic Lumbar Stabilization For the Purpose of:: To improve muscle performance and motor function, To improve ability to perform ADL's, To improve performance and independence with ADL's, To decrease level of supervision to perform tasks, To improve health of tissue, To decrease soft tissue restriction, To increase flexibility/ROM Functional Training to Include: Functional sports training For the Purpose of:: To increase oxygenation perfusion, To improve muscle performance and motor function Iontophoresis (with Dexamethozone, with Acetic acid): Yes - if ordered IF ES: Yes Cryotherapy (ice pack, ice massage): Yes Thermo therapy (hot pack): Yes Ultrasound (thermal/non thermal): Yes For the Purpose of:: To decrease pain, To improve nutrient delivery to tissue, To improve muscle performance and motor function, To improve ability to perform ADL's, To increase tolerance to activity/condition/position, To improve health of tissue, To increase flexibility/ROM Thank you for the opportunity to evaluate your patient. For Medicare and Medicare HMO plans, please review the plan of care and approve it. It will need to be FAXED BACK to us at [phone] for Medicare purposes. For Medicare only, by signing this I certify the plan of care. Please let me know if there are questions or concerns regarding this plan of care. Physician Signature: Date:
--- NOTE | 2019-11-26 13:06 | HP.PTDCSUM ---
It has been my pleasure to treat NANCY ALMEIDA referred by Dr. Joana York DO, with the diagnosis of R knee condromalacia and patellar tendonitis for a total of 12 visit(s). Discharge Date: 11/26/19 Please see the following information for a summary of their discharge status. Subjective: Continue to feel better. No real pain lately but it will occasionally get sore after sitting too long. R knee pain Pain Intensity (Out of 10): 0 % Improvement: 80 Objective/Function: Ayesha plans to keep progressing with her running program independently. She is currently on Step 4 which is 5 sets of 5 min run 1 min walk. She will progress thru the following steps based on tolerance. Step 5: 6 sets of 5 min run/ 1 min walk. Step 6: 2 sets of 15 min run 1 min walk. Step 7: 20 min run, 1 min walk, 5 min run with feedback, 5 min run without feedback. Step 8: 30 min run without feedback Goal 1:: I HEP Goal 2:: Decrease knee pain up and down stairs with ascending/descending with the R knee Goal 3:: Be able to run with no pain Goal 4:: Be able to bend R knee witout feeling pain when trying to extend from the flexed position Plan: Hold chart for two weeks. If we do not hear anything we will discharge to independent. DC PT Discharge Comments: DC PT as pt is doing well If there are questions or concerns regarding this patient's physical therapy, please feel free to call me at [phone]. Thank you for the referral of this patient. Sincerely, Anupama Pena, MPT
== END 2019-09-30 19:00 | disposition home or self-care (01) ==
LOC: PT 15:00
PROVIDERS: PCP Family Medicine; Referring Provider Orthopaedic Surgery; Visit Provider Orthopaedic Surgery
DX: M76.50 Patellar tendinitis, unspecified knee (principal)
CPT/HCPCS: 97110; 97116; 97161; 97530

== ENCOUNTER → 2020-01-07 12:26 | Outpatient (CLI) | payer OTHER, SELFPAY ==
[2019-09-18 08:45] VITALS: BMI 27.8
--- NOTE | 2020-01-07 12:27 | MRI_ITS ---
STUDY: MRI RIGHT KNEE REASON FOR EXAM: Right medial knee pain for 6 weeks, surgery 2 years ago. TECHNIQUE: Standardized fat and water weighted pulse sequences were obtained in all 3 orthogonal planes. COMPARISON: Radiographs 07/31/2019 and MRI report 01/16/2018. FINDINGS: There is a horizontal/oblique band of signal in the posterior horn of the medial meniscus extending to the inferior articular surface (proton-density sagittal images 29-34), more likely recurrent medial meniscal tear rather than scarring since there is a small parameniscal cyst (T2 sagittal images 16, 17). Normal hyaline cartilage of the medial femorotibial compartment. Normal medial femoral condyle and tibial plateau. Normal medial collateral ligamentous complex (MCL). Normal distal semimembranosus, gracilis and semitendinosus tendons. Normal lateral meniscus. Normal hyaline cartilage of the lateral femorotibial compartment. Normal lateral femoral condyle and tibial plateau. Normal proximal tibiofibular articulation. Normal lateral collateral (fibular) ligament. Normal popliteus tendon. Normal biceps femoris tendon. Normal anterior cruciate ligament (ACL). Normal posterior cruciate ligament (PCL). Normal congruent patellofemoral articulation. There is focal low-grade chondromalacia of the median ridge of the patella (T2 axial image 11; T2 sagittal image 14). Normal medial and lateral patellar retinaculum. Normal quadriceps tendon. Normal patellar tendon. There is postoperative scarring in Hoffa''s fat pad. There is a small joint effusion. There is a thin medial patellar plica. The soft tissues are unremarkable. The otherwise visualized osseous structures are unremarkable. MRI/Lower Ext Joint Only (Routine) IMPRESSION: Signal alteration of the posterior horn of the medial meniscus, more likely recurrent medial meniscal tear rather than scarring since there is a small parameniscal cyst. 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 Small joint effusion. Electronically Signed: Young Shepherd MD at 13:46 EST Tel , Service support ,
== END ==
PROVIDERS: PCP Family Medicine; Referring Provider Orthopaedic Surgery; Visit Provider Orthopaedic Surgery
DX: M76.51 Patellar tendinitis, right knee (principal); M25.569 Pain in unspecified knee
CPT/HCPCS: 73721

== ENCOUNTER 2020-01-21 10:17 | Day surgery (SDC) | payer OTHER, SELFPAY ==
[2019-09-18 08:45] VITALS: BMI 27.8
[2020-01-21] VITALS (8 sets, daily range): BP systolic 108–117; BP diastolic 76–87; PULSE 68–80; RESP 16; TEMP 36.2–37.1; O2SAT 64–100; BMI 26.2
--- NOTE | 2020-01-21 08:16 | HP_ITS ---
I have re-examined the patient. There are no clinical changes since date of exam. Intake Intake Visit Reasons: RIGHT KNEE Is patient in pain?: Yes Allergies acetaminophen [From Vicodin] Adverse Reaction (Verified 01/15/20 14:17) Itching hydrocodone [From Vicodin] Adverse Reaction (Verified 01/15/20 14:17) Itching [facility] Medical History (Updated 02/25/19 @ 09:06 by Arden DUBOIS, PA) Gave to child recently (Acute) Family History Other Bleeding disorder Diabetes Social History (Updated 01/16/20 @ 10:[address] Joana York, ) Smoking Status: Never smoker alcohol intake: never HPI RIGHT KNEE: Details: Parts of this documentation were recorded by a scribe, this documentation accurately reflects the service provided and the decisions made by me, Dr. Joana York DO 01/15/20 1413. NANCY ALMEIDA is a 29 year old F here today for a followup on her right knee. She states that she continues to have right knee pain. Patient has increased pain with increased activities or cold weather. Her pain is over her medial knee. She also states that she has a sharp pain around her patella when it shifts. She has a knee brace which she wears when she leaves the house. Denies numbness, tingling or other associated symptoms.Her MRI is here for review. ROS Musc Reports system reviewed and no additional complaints, except as docu, Reports joint pain, Denies numbness, Denies tingling Skin/Breast Reports system reviewed and no additional complaints, except as docu Neuro Yes system reviewed and no additional complaints, except as docu, No numbness, No tingling Ortho Exam Right Knee Skin/Wound: Yes CDI, No erythema, No ecchymosis, No swelling Examination: Yes Med jt line tenderness, Yes Pain with flexion, Yes Mariam's Test Stability: NML: Anterior Drawer, NML: Armin, NML: Posterior Drawer, NML: Valgus 0, NML: Valgus 30, NML: Varus 0, NML: Varus 30, NML: Dial 90, NML: Dial 30 Assessment & Plan Problems 1. 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 See imaging report. Spoke with the patient about the benefits of surgery. She will be on crutches and non-weightbearing for 6 weeks. Reviewed the pre-operative plans with the patient. Risks and benefits of the procedure were fully explained, including but not limited to infection, neurovascular injury, continued pain, arthritis, stiffness, need for further surgery, re-injury, DVT, PE, general risks of anesthesia, and loss of limb or life. The patient understands all the risks and does wish to proceed with written consent. We discussed the current risk associated COVID-19. While it is understood that there is a community spread of COVID 19 the risk of karoline COVID-19 while at [facility] is very low, however, the risk cannot be completely mitigated because of the community spread of the disease. We discussed in detail the risk of exposure to and or potential harm posed by the COVID-19 virus with having a surgery/procedure at this time versus the risk of delaying the surgery/procedure. Is not possible to know either the risk of delaying the surgery procedure or chance of getting an infection with perfect accuracy, but a joint decision was made to proceed at this time with a schedule surgery/procedure as indicated on the consent form. Patient was notified that we will need to comply with any screening or testing [facility] wishes to perform or that surgery may be delayed for any positive results. Follow up in 2 week post op, or sooner if pain, swelling, numbness or associated symptoms, or concerns develop. All questions answered. Patient in agreement of plan. Coding Level of Care Code Off vis,est,level 4 Diagnoses Acute medial meniscus tear of right knee, subsequent encounter S83.306D ??Encounter type: subsequent encounter
[2020-01-21] MEDS: Lactated Ringers 1,000 ML 100 ML IV (10:47)
[2020-01-21 10:52] LABS: Internal QC Validated? YES +Cl - CLEAR BKGD; Pregnancy, Urine Negative Negative
[2020-01-21] MEDS: Cefazolin 2 GM in 0.9% Normal Saline 100 ML IV (13:21)
[2020-01-21] MEDS: Epinephrine (1 mg/ml) 1 MG/ML VIAL (13:40)
--- NOTE | 2020-01-21 14:07 | DCINST_ITS ---
Discharge Diet: No Restrictions - ttwb right le, 0-30 degrees for 2 weeks while seated, locked in extension during ambulation or at night, follow up on sunday with anna for dressing change and brace adjustments Discharge Activity: May Not Drive May shower in (days): 1 Ice area for (Minutes): 20 - Every hour while awake. Weight Bearing Status: Weight bearing as tolerated Keep extremity elevated above heart level: Operative Extremity Call your doctor if your incision/area has: Continuous Slow Oozing, Sudden Increased Bleeding, Increased Pain/ Swelling, Increased Redness, Foul Smelling Discharge Call your doctor if you observe: Fever of 101 or Higher, Coldness, Increased Pain, Numbness or Tingling, Change in Color, Calf discomfort Allergies/Adverse Reactions: Allergies acetaminophen [From Vicodin] Adverse Reaction (Verified 01/15/20 14:17) Itching hydrocodone [From Vicodin] Adverse Reaction (Verified 01/15/20 14:17) Itching Medications to take at Discharge escitalopram oxalate 10 mg tablet 10 mg PO DAILY tab 12/25/19 Elderberry Fruit and Flower [Black Elderberry 575 mg Cap] 1 ea PO DAILY 01/19/20 Multivitamin [One Daily Essential] 1 ea PO DAILY 01/19/20 Oxycodone HCl/Acetaminophen [Percocet 5/325] 1 - 2 tablet PO Q6H PRN PRN 5 Days #28 tablet 01/21/20 Zolpidem Tartrate [Ambien (Generic)] 5 mg PO QHS PRN PRN #14 tablet 01/21/20 The following prescriptions were given: Zolpidem Tartrate [Ambien (Generic)] 5 mg PO QHS PRN PRN #14 tablet PRN Reason: Insomnia Transmission Status: Received by [facility] Oxycodone HCl/Acetaminophen [Percocet 5/325] 1 - 2 tablet PO Q6H PRN PRN 5 Days #28 tablet PRN Reason: Pain Transmission Status: Received by [facility] Primary Care Physician: Zachery Oconnor MD [Primary Care Provider] - Test Results: Test results from this visit will be discussed in further detail at your follow- up appointment, if applicable. Please Follow Up With: Joana York, DO - [phone]
--- NOTE | 2020-01-21 14:09 | OP.PCM_ITS ---
Report of Operation Date of Procedure: 01/21/20 Pre-Operative Diagnosis: right knee medial meniscus tear Post-Operative Diagnosis: same Surgery/Procedure Performed:: right knee arthroscopy, [facility] repair dispatch associate: Sanjiv Ruggiero Type of Anesthesia:: General Anesthesiologist: Mehran Rich Specimen's removed: tt-31min Estimated Blood Loss (mL): min Fluids Replaced: 1000ml lr Description of Procedure: Preop note Patient is a 29-year-old female well-known to me as she has had a right knee medial meniscus meniscus repair in the past. Patient presented with increased medial knee pain MRI questionable whether or not the new versus repair of the medial meniscus from the past and scarring. Do the fact the patient is having some issues with the medial knee joint and continued pain we decided to proceed with a right knee arthroscopy determine whether or not if it is healed versus new tear versus a acute on chronic tear. Risk benefits alternatives were discussed with patient. Risk include but not limited to blood loss, blood clot, infection, neurovascular, failure procedure, loss of life and loss of limb. Patient is aware like with any proceed with right knee arthroscopy para Zincate. Operative Patient seen and examined preoperative holding area. Right knee was marked. Patient brought the operating placed supine on the operating table. Signed, anesthesia, antibiotics were administered. The right leg was prepped and draped usual sterile technique with a tourniquet on her upper thigh. All bony promises well-padded SCDs placed on her contralateral limb. We marked it we use our previous portal placements for anterolateral anteromedial portal placement. The right leg was then elevate exsanguinated tourniquet was raised to a pressure of 250 torr. The use 11 blade to create anterior lateral portal. Began our diagnostic arthroscopy 2. Is patient still had some little bit of loose grade 2 but no unstable pieces of her patellofemoral joint on the proximal pole. We then moved to the medial joint line created anterior medial portal under direct visualization. We then able to probe the medial meniscus which the sutures were still cross placed as had not healed. ACL PCL were present in the notch. The lateral meniscus was intact and stable probing the lateral tibial plateau and lateral femoral condyle intact stable probing as well. 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 We then resected some of the old stitches out in order to make way for new stitches were placed he was 6 reverse curved FasT-Fix devices across after we gently debrided the tear with a shaver. After we then reinserted probe we had good stable meniscus repair remaining. We then microfracture the notch. Please try to put please note prior to that we did irrigate the knee with copious amounts of sterile saline. Also closed with interrupted 4-0 nylon stitches sterile dressings were applied. Tourniquet was deflated for total working time 31 minutes. Patient taught procedure well no complications after recovery room in stable condition. Postoperative note Nonweightbearing operative limb Pharmacy has prescriptions 0-30 with brace Ankle pumps ice elevate Call with calf pain or other issues CONSTANTINO stockings Follow-up on Sunday for brace adjustment and dressing changes This note was generated with [employer] dictation software. It may contain incorrect words, spelling, and punctuation that were not noted in checking the note before signing. Grafts/Implants Used: 6 reverse curved fasTfix device
[2020-01-21] MEDS: Bupiv/Epi 0.25% 30 ML Vial (14:15)
[2020-01-21] MEDS: Mupirocin Ointment 22gm Tube 1 APPLIC (14:20)
== END 2020-01-21 16:31 | disposition home or self-care (01) ==
LOC: SDC 10:17 → AC 10:18
PROVIDERS: Anesthesiology; PCP Family Medicine; Referring Provider Orthopaedic Surgery; Visit Provider Orthopaedic Surgery
PROC: (CPT 29882; principal; 2020-01-21 12:00)
DX: S83.241A Other tear of medial meniscus, current injury, right knee, initial encounter (principal); Z20.828 Contact with and (suspected) exposure to other viral communicable diseases; X58.XXXA Exposure to other specified factors, initial encounter; Y93.89 Activity, other specified; Y92.89 Other specified places as the place of occurrence of the external cause; Y99.8 Other external cause status
CPT/HCPCS: 29881; 81025; 87426; C9803; J7120; J2405

== ENCOUNTER 2020-06-14 08:00 | Outpatient (RCR) | payer OTHER, SELFPAY ==
[2020-02-03 08:40] VITALS: BMI 27.8
--- NOTE | 2020-02-11 15:46 | HP.PTEVAL_ITS ---
Patient's Visit Information NANCY ALMEIDA is a 29 year old F referred to Physical Therapy by Dr. Joana York DO with a diagnosis of S/P R medial meniscal repair on 01-21-2020. Date of Evaluation: 02/11/20 Physical Therapist: BEVERLY Kenny - Visit Plan Frequency: 2-3x /Week Duration: 4 Months Plan: 0-60 degree until 02-17-2020. 02-17-2020 ( can move 0-90 degrees) - Subjective Pt reports that she went on a run and felt something not feeling good in her knee. She did not exercise for a few weeks. Then at school she could not turn and then she would drop due to too much pain. Got MRI and surgery within a week. There was another tear in her R medial menisus and cleaned up patellar tendon. DOS was 01-21-2020 ( 3 weeks post op). Stairs: up and down with TTWB with crutches. Foot gets swollen the longer it is in a dependent position. She has been doing SLR, SLR with ER, and SLR with abduction and back to SLR position. Pt reports no signs of infecion at the incision. - Pain R knee pain Pain Intensity (Out of 10): 0 - Objective Gait: walks with 2 crutches with no weight through her LE's. She is afraid to put weight through her toe as sometimes it catches. R knee AROM: 0 degrees extension and 60 degrees flexion R knee. Good QS today.... 3 X 10. SLR 3 X 10 ( no quad lag). S/L hip abd 3 X 10. Prone hip extension 3 X 10. Tight gastroc on the R - Goals Goal 1:: I HEP Goal Time Frame: 6-8 Weeks Goal 2:: Increase R knee AROM 0-125 by D/C Goal Time Frame: 8-12 Weeks Goal 3:: Walk with a normal nonantalgic gait by DC Goal Time Frame: 8-12 Weeks Goal 4:: stairs: up and down recip with 1 hand rail with no signs of weakness Goal Time Frame: 8-12 Weeks Goal 5:: Increase R knee and hip strength to 4+/5 by DC Goal Time Frame: 8-12 Weeks Goal 6:: Be able to run by D/C with no limp and proper gait mechanics Goal Time Frame: 8-12 Weeks - Rehabilitation Potential Rehabilitation Potential: Good - Anticipated Interventions Patient/Client Instruction: Educate patient on: Condition, Plan of Care For the Purpose of:: To decrease pain, To decrease swelling/inflammation, To increase ROM, To improve nutrient delivery to tissue, To improve muscle performance and motor function, To improve ability to perform ADL's, To increase tolerance to activity/condition/position, To improve performance and indepe ndence with ADL's, To decrease level of supervision to perform tasks, To improve ability of physical actions for home/community/work/leisure, To improve gait and locomotor functions, To improve health of tissue, To decrease soft tissue restriction, To increase flexibility/ROM, To improve endurance, To improve balance, To improve safety with gait Therapeutic Exercise to Include: Strength training, Endurance training, Balance training, Postural training, Flexibilty training, Gait and locomotor training, Neuromotor development, Passive ROM, Active ROM For the Purpose of:: To decrease pain, To decrease swelling/inflammation, To increase ROM, To improve nutrient delivery to tissue, To increase oxygenation perfusion, To improve muscle performance and motor function, To improve ability to perform ADL's, To increase tolerance to activity/condition/position, To improve performance and independence with ADL's, To decrease level of supervision to perform tasks, To improve ability of physical actions for home/community/work/leisure, To improve gait and locomotor functions, To improve health of tissue, To decrease soft tissue restriction, To increase flexibility/ROM, To improve endurance, To improve balance, To improve safety with gait, To assume or resume ADL's, To reduce risk of recurrence Functional Training to Include: Gait training For the Purpose of:: To improve gait and locomotor functions Manual Therapy Techniques to Include: Scar massage, Passive ROM For the Purpose of:: To decrease pain, To increase ROM, To improve nutrient delivery to tissue IF ES: Yes Cryotherapy (ice pack, ice massage): Yes For the Purpose of:: To decrease pain, To decrease swelling/inflammation, To increase ROM, To improve nutrient delivery to tissue, To improve muscle performa nce and motor function Thank you for the opportunity to evaluate your patient. For Medicare and Medicare HMO plans, please review the plan of care and approve it. It will need to be FAXED BACK to us at [phone] for Medicare purposes. For Medicare only, by signing this I certify the plan of care. Please let me know if there are questions or concerns regarding this plan of care. Physician Signature: Date:
--- NOTE | 2020-02-11 16:03 | HP.PTEVAL_ITS ---
Patient's Visit Information NANCY ALMEIDA is a 29 year old F referred to Physical Therapy by Dr. Joana York DO with a diagnosis of S/P R medial meniscal repair on 01-21-2020. Date of Evaluation: 02/11/20 Physical Therapist: BEVERLY Kenny - Visit Plan Frequency: 2-3x /Week Duration: 4 Months Plan: 0-60 degree until 02-17-2020. 02-17-2020 ( can move 0-90 degrees for 2 weeks). Continue to strengthen QUADS. Pt isTTWB with brace locked into extens ion with 2 crutches. Pt sees on 03-02-2020 and she will hipefully get her out of the brace, increase ROM and WB and then at that time work on strengthening, increase ROM, stairs and gait as trena - Subjective Pt reports that she went on a run and felt something not feeling good in her knee. She did not exercise for a few weeks. Then at school she could not turn and then she would drop due to too much pain. Got MRI and surgery within a week. There was another tear in her R medial menisus and cleaned up patellar tendon. DOS was 01-21-2020 ( 3 weeks post op). Stairs: up and down with TTWB with crutches. Foot gets swollen the longer it is in a dependent position. She has been doing SLR, SLR with ER, and SLR with abduction and back to SLR position. Pt reports no signs of infecion at the incision. - Pain R knee pain Pain Intensity (Out of 10): 0 - Objective Gait: walks with 2 crutches with no weight through her LE's. She is afraid to put weight through her toe as sometimes it catches. R knee AROM: 0 degrees extension and 60 degrees flexion R knee. Good QS today.... 3 X 10. SLR 3 X 10 ( no quad lag). S/L hip abd 3 X 10. Prone hip extension 3 X 10. Tight gastroc on the R - Goals Goal 1:: I HEP Goal Time Frame: 6-8 Weeks Goal 2:: Increase R knee AROM 0-125 by D/C Goal Time Frame: 8-12 Weeks Goal 3:: Walk with a normal nonantalgic gait by DC Goal Time Frame: 8-12 Weeks Goal 4:: stairs: up and down recip with 1 hand rail with no signs of weakness Goal Time Frame: 8-12 Weeks Goal 5:: Increase R knee and hip strength to 4+/5 by DC Goal Time Frame: 8-12 Weeks Goal 6:: Be able to run by D/C with no limp and proper gait mechanics Goal Time Frame: 8-12 Weeks - Rehabilitation Potential Rehabilitation Potential: Good - Anticipated Interventions Patient/Client Instruction: Educate patient on: Condition, Plan of Care For the Purpose of:: To decrease pain, To decrease swelling/inflammation, To increase ROM, To improve nutrient delivery to tissue, To improve muscle performance and motor function, To improve ability to perform ADL's, To increase tolerance to activity/condition/position, To improve performance and independence with ADL's, To decrease level of supervision to perform tasks, To improve ability of physical actions for home/community/work/leisure, To improve gait and locomotor functions, To improve health of tissue, To decrease soft tissue restriction, To increase flexibility/ROM, To improve endurance, To improve balance, To improve safety with gait Therapeutic Exercise to Include: Strength training, Endurance training, Balance training, Postural training, Flexibilty training, Gait and locomotor training, Neuromotor development, Passive ROM, Active ROM For the Purpose of:: To decrease pain, To decrease swelling/inflammation, To increase ROM, To improve nutrient delivery to tissue, To increase oxygenation perfusion, To improve muscle performance and motor function, To improve ability to perform ADL's, To increase tolerance to activity/condition/position, To imp rove performance and independence with ADL's, To decrease level of supervision to perform tasks, To improve ability of physical actions for home/community/work/leisure, To improve gait and locomotor functions, To improve health of tissue, To decrease soft tissue restriction, To increase flexibility/ROM, To improve endurance, To improve balance, To improve safety with gait, To assume or resume ADL's, To reduce risk of recurrence Functional Training to Include: Gait training For the Purpose of:: To improve gait and locomotor functions Manual Therapy Techniques to Include: Scar massage, Passive ROM For the Purpose of:: To decrease pain, To increase ROM, To improve nutrient delivery to tissue IF ES: Yes Cryotherapy (ice pack, ice massage): Yes For the Purpose of:: To decrease pain, To decrease swelling/inflammation, To increase ROM, To improve nutrient delivery to tissue, To improve muscle performance and motor function Thank you for the opportunity to evaluate your patient. For Medicare and Medicare HMO plans, please review the plan of care and approve it. It will need to be FAXED BACK to us at [phone] for Medicare purposes. For Medicare only, by signing this I certify the plan of care. Please let me know if there are questions or concerns regarding this plan of care. Physician Signature: Date:
--- NOTE | 2020-04-28 16:18 | HP.PTREVAL_ITS ---
Dr. Joana York, DO, It has been my pleasure to treat NANCY ALMEIDA over the last 20 visits for S/P R medial meniscal repair on 01-21-2020. Please see the progress note below for an update on the physical therapy plan of care! Subjective: Pt feels that the simple core stability stuff has been helping. She feels that she has not reached ability to reach high impact. She sitll can not run across the yard to get kids or squat to moss picker kids. Dr has not released her to run again. Objective/Function: 0-132 degrees R knee flexion. LE MMT: B hip flex 4/5, B knee ext 4/5, B knee flex 4/5, R hip abd 4/5 B, B hip ext 4-/5. Stairs: up and down recip with no hand rail with slight decrease in strength on ascendand descend. No antalgic gait. 6 inch eccentric dip... fatigues after first set of 10. 4 inch eccentric dip 2 X 10 with good control. Plan Plan: ADD 6 inch eccentric step downs next visit. 2X/ week for 3 additional weeks to learn small core stability program for home with proper form, hip strengthe, R knee and hip strengthening, stairs and gait as able, functional strength. Goals Goal 1:: I HEP Goal Time Frame: 6-8 Weeks Goal Progress: Goal Met Goal 2:: Be able to complete 3 X 10 6 inch eccentric step downs wtih no hesitation, pain or weakness. Goal Time Frame: 8-12 Weeks Goal 3:: Walk with a normal nonantalgic gait by DC Goal Time Frame: 8-12 Weeks Goal Progress: Goal Met Goal 4:: stairs: up and down recip with 1 hand rail with no signs of weakness Goal Time Frame: 8-12 Weeks Goal Progress: Progressing Goal 5:: Increase R knee and hip strength to 4+/5 by DC Goal Time Frame: 8-12 Weeks Goal 6:: Be able to run by D/C with no limp and proper gait mechanics Goal Time Frame: 8-12 Weeks Anticipated Interventions Patient/Client Instruction: Educate patient on: Condition, Plan of Care For the Purpose of:: To decrease pain, To decrease swelling/inflammation, To increase ROM, To improve nutrient delivery to tissue, To improve muscle performance and motor function, To improve ability to perform ADL's, To increase tolerance to activity/condition/position, To improve performance and independence with ADL's, To decrease level of supervision to perform tasks, To improve ability of physical actions for home/community/work/leisure, To improve gait and locomotor functions, To improve health of tissue, To decrease soft tissue restriction, To increase flexibility/ROM, To improve endurance, To improve balance, To improve safety with gait Therapeutic Exercise to Include: Strength training, Endurance training, Balance training, Postural training, Flexibilty training, Gait and locomotor training, Neuromotor development, Passive ROM, Active ROM For the Purpose of:: To decrease pain, To decrease swelling/inflammation, To increase ROM, To improve nutrient delivery to tissue, To increase oxygenation perfusion, To improve muscle performance and motor function, To improve ability to perform ADL's, To increase tolerance to activity/condition/position, To improve performance and independence with ADL's, To decrease level of supervision to perform tasks, To improve ability of physical actions for home/community/work/leisure, To improve gait and locomotor functions, To improve health of tissue, To decrease soft tissue restriction, To increase flexibility/ROM, To improve endurance, To improve balance, To improve safety with gait, To assume or resume ADL's, To reduce risk of recurrence Functional Training to Include: Gait training For the Purpose of:: To improve gait and locomotor functions Manual Therapy Techniques to Include: Scar massage, Passive ROM For the Purpose of:: To decrease pain, To increase ROM, To improve nutrient delivery to tissue IF ES: Yes Cryotherapy (ice pack, ice massage): Yes For the Purpose of:: To decrease pain, To decrease swelling/inflammation, To increase ROM, To improve nutrient delivery to tissue, To improve muscle performance and motor function Please do not hesitate to contact me at [phone] by phone or Fax: if you have questions or concerns regarding this new plan of care! Sincerely, Anupama Pena MPT
== END 2020-06-14 19:00 | disposition home or self-care (01) ==
LOC: PT 08:00
PROVIDERS: PCP Family Medicine; Referring Provider Orthopaedic Surgery; Visit Provider Orthopaedic Surgery
DX: Z47.89 Encounter for other orthopedic aftercare (principal); Z98.890 Other specified postprocedural states
CPT/HCPCS: 97014; 97035; 97110; 97161; 97530; G0283

== ENCOUNTER → 2020-06-29 17:31 | Outpatient (CLI) | payer OTHER, SELFPAY ==
[2020-06-16 14:45] VITALS: BMI 26.2
--- NOTE | 2020-06-29 17:32 | MRI_ITS ---
STUDY: MRI RIGHT KNEE REASON FOR EXAM: Female, 30 years old. Knee pain. Previous surgery. TECHNIQUE: Standardized fat and water weighted pulse sequences were obtained in all 3 orthogonal planes. COMPARISON: 01/07/2020. 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 Remainder the patellofemoral articular cartilage preserved. Lateral compartment articular cartilage preserved. Medial compartment grade 2 cartilage loss. No acute fracture, dislocation or cortical destruction. Minimal bone marrow edema at the patella. Lateral meniscus intact. Recurrent medial meniscus posterior horn oblique tear (sagittal images 17 through 20 series 4) extending to the inferior articular undersurface. Small volume joint effusion. Tiny popliteal cyst. Minimal swelling. Normal medial collateral ligamentous complex (MCL). Normal distal semimembranosus, gracilis and semitendinosus tendons. Normal proximal tibiofibular articulation. Normal lateral collateral (fibular) ligament. Normal popliteus tendon. Normal biceps femoris tendon. Normal anterior cruciate ligament (ACL). Normal posterior cruciate ligament (PCL). Normal medial and lateral patellar retinaculum. Normal quadriceps tendon. Normal patellar tendon. Scarring at Hoffa''s fat pad. 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
== END ==
PROVIDERS: PCP Family Medicine; Referring Provider Physician Assistant; Visit Provider Physician Assistant
DX: M25.561 Pain in right knee (principal)
CPT/HCPCS: 73721

== ENCOUNTER 2020-10-04 15:00 | Outpatient (RCR) | payer OTHER, SELFPAY ==
[2020-07-07 08:54] VITALS: BMI 26.2
--- NOTE | 2020-09-07 08:29 | HP.PTEVAL ---
Patient's Visit Information NANCY ALMEIDA is a 30 year old F referred to Physical Therapy by Dr. Zachary Capellan MD with a diagnosis of Tear of medial meniscus with and cho. Date of Evaluation: 09/07/20 Physical Therapist: BEVERLY Kenny - Visit Plan Frequency: 2x /Week Duration: 4 Weeks Plan: 2X/ week for 4 weeks for core, hip and knee strength progression geared toward HEP - Subjective Pt had a menisectomy due to her tear not healing twice (two failed surgeries) and the tissue was just frayed so they did a menisectomy. told her she may not run or jump again due to the amount of tissue that he took out. said they will have to continue re-evaluate her pain. She is done with surgeries. She RTD in 3 weeks. She was not given any restrictions as things are as tolerated. She has been wearing the brace in public but not at home. - Pain R knee Pain Intensity (Out of 10): 0 - Objective R knee AROM: -1 degree from full extension to 138 degrees R knee flexion. L knee AROM: 0-145 degrees knee flexion. R knee girth: 33.5 tib tub, 35.3 infrapat, 38.2 suprapat. L knee girth 33.5, 34, 39.5. hip ext B 4-/5, Hip flex B 4-/5, R hip abd 4-/5 and L 4/5.... R knee flex and ext were not tested due to surgery. SLB 30 sec B. Pt is able to SLB with knee flexion on the R without pain. - Goals Goal 1:: I HEP Goal Time Frame: 4-6 Weeks Goal 2:: Be able to resume exercise HOME program without any pain and encourage active pain free lifestyle Goal Time Frame: 4-6 Weeks Goal 3:: Full pain free R knee AROM Goal Time Frame: 4-6 Weeks - Rehabilitation Potential Rehabilitation Potential: Good - Anticipated Interventions Patient/Client Instruction: Educate patient on: Condition, Plan of Care For the Purpose of:: To decrease pain, To increase ROM, To improve nutrient delivery to tissue, To improve muscle performance and motor function, To improve ability to perform ADL's, To increase tolerance to activity/condition/position, To improve performance and independence with ADL's, To improve ability of physical actions for home/community/work/leisure, To improve gait and locomotor functions, To improve health of tissue, To increase flexibility/ROM, To improve balance Therapeutic Exercise to Include: Strength training, Endurance training, Balance training, Coordination, Flexibilty training, Gait and locomotor training, Passive ROM, Active ROM, Dynamic Lumbar Stabilization For the Purpose of:: To decrease swelling/inflammation, To increase ROM, To improve nutrient delivery to tissue, To improve muscle performance and motor function, To improve ability to perform ADL's, To increase tolerance to activity/condition/position, To improve performance and independence with ADL's, To improve ability of physical actions for home/community/work/leisure, To improve gait and locomotor functions, To improve health of tissue, To decrease soft tissue restriction, To increase flexibility/ROM, To improve balance Functional Training to Include: Gait training For the Purpose of:: To improve gait and locomotor functions IF ES: Yes Cryotherapy (ice pack, ice massage): Yes For the Purpose of:: To decrease pain, To decrease swelling/inflammation, To improve nutrient delivery to tissue Thank you for the opportunity to evaluate your patient. For Medicare and Medicare HMO plans, please review the plan of care and approve it. It will need to be FAXED BACK to us at [phone] for Medicare purposes. For Medicare only, by signing this I certify the plan of care. Please let me know if there are questions or concerns regarding this plan of care. Physician Signature: Date:
--- NOTE | 2020-10-04 16:02 | HP.PTDCSUM_ITS ---
It has been my pleasure to treat NANCY ALMEIDA referred by Dr. Zachary Capellan MD, with the diagnosis of Tear of medial meniscus with and cho for a total of 8 visit(s). Discharge Date: 10/04/20 Please see the following information for a summary of their discharge status. Subjective: Pt reports that she is sore after she does activitiy. Pt is going t o start 21 fix with modifications. She feels that she can do all these exercises at home. R knee Pain Intensity (Out of 10): 0 % Improvement: 75 Objective/Function: Pt has full knowledge of HEP and progression Goal 1:: I HEP Goal Progress: Goal Met Goal 2:: Be able to resume exercise HOME program without any pain and encourage active pain free lifestyle Goal Progress: Goal Met Goal 3:: Full pain free R knee AROM Goal Progress: Goal Met Plan: DC PT to HEP and slow progression of HEP. Discharge Comments: DC PT to HEP If there are questions or concerns regarding this patient's physical therapy, please feel free to call me at [phone]. Thank you for the referral of this patient. Sincerely, Anupama Pena, MPT Balance/Gait/Functional tests - Balance/Special Test Scores Lower Extremity Functional Score: 54
== END 2020-10-04 19:00 | disposition home or self-care (01) ==
LOC: PT 15:00
PROVIDERS: PCP Family Medicine; Referring Provider Orthopaedic Surgery; Visit Provider Orthopaedic Surgery
DX: Z47.89 Encounter for other orthopedic aftercare (principal); S83.241D Other tear of medial meniscus, current injury, right knee, subsequent encounter; X58.XXXD Exposure to other specified factors, subsequent encounter
CPT/HCPCS: 97110; 97161

== ENCOUNTER → 2021-10-26 | Outpatient (CLI) | payer OTHER, SELFPAY ==
[2021-11-03 15:36] LABS: HPV APTIMA, High Risk Negative (Negative)
== END | disposition home or self-care (01) ==
LOC: LABSPEC 16:13
PROVIDERS: PCP Family Medicine; Visit Provider Student in an Organized Health Care Education/Training Program
DX: Z12.4 Encounter for screening for malignant neoplasm of cervix (principal)
CPT/HCPCS: 87624; 88175; G0145

== ENCOUNTER → 2021-12-21 | Outpatient (CLI) | payer OTHER, SELFPAY ==
[2021-12-21 16:04] LABS: Absolute Lymphocyte Count 1.59 X10^3/uL (0.83-4.51); Absolute Neutrophil Count 5.2 X10^3/uL (2.0-7.7); Basophil# 0.01 X10^3/uL; Basophil% 0.1 % (0-1); Eosinophil# 0.08 X10^3/uL; Eosinophils% 1.1 % (0-5); Hematocrit 40.2 % (37-47); Hemoglobin 13.6 g/dL (12.0-15.0); Lymphocyte # 1.59 X10^3/ul (0.83-4.51); Lymphocyte % 21.5 % (19-41); Mean Corp Hgb Conc 33.8 g/dL (32-36); Mean Corpuscular Volume 85.7 fL (81-99); Mean Platelet Vol. 9.1 fl (6.2-12.0); Monocyte# 0.43 X10^3/uL; Monocyte% 5.8 % (0-10); NRBC Flagged by Analyzer 0 % (0-5); Neutrophil # 5.24 X10^3/uL (2.7-7.7); Neutrophil % 71.1 % (47-70); Platelet Count 307 K/mm3 (150-450); RBC Distribution Width CV 12.7 % (11.6-14.6); RBC Distribution Width SD 39.2 fl (35.1-43.9); Red Blood Count 4.69 M/mm3 (4.2-5.4); White Blood Count 7.4 K/mm3 (4.4-11.0)
[2021-12-21 16:55] LABS: HIV - WCH Non-Reactive (Nonreactive); Hepatitis B Surface Antigen Non-Reactive (Nonreactive); Hepatitis C Antibody Non-Reactive (Nonreactive); Rubella IgG Reactive (Nonreactive); Syphilis Antibodies Non-reactive
[2021-12-23 11:34] LABS: V-Zoster IgG (Immunity) 230 index (Immune >165)
[2021-12-23 22:06] LABS: Chlamydia By Nucleic Acid AMP Negative (Negative)
[2021-12-23 22:15] LABS: Gonococcus By Nucleic Acid AMP Negative (Negative)
== END | disposition home or self-care (01) ==
LOC: WOBLAB 15:23
PROVIDERS: PCP Family Medicine; Visit Provider Student in an Organized Health Care Education/Training Program
DX: Z34.81 Encounter for supervision of other normal pregnancy, first trimester (principal)
CPT/HCPCS: 36415; 85025; 86703; 86762; 86780; 86787; 86803; 87086; 87088; 87340; 87491; 87591

== ENCOUNTER 2022-03-21 14:50 | Emergency (ER) | payer OTHER, SELFPAY ==
[2022-03-21 14:51] VITALS: BP 111/80; PULSE 98; RESP 18; TEMP 36.6; O2SAT 102; BMI 28.5
--- NOTE | 2022-03-21 15:09 | EDS_ITS ---
HPI History of Present Illness Chief Complaint: Nausea/Vomiting/Diarrhea Informant: patient Narrative Narrative: 21-week gestation by ultrasound presents with vomiting diarrhea since this morning. Vomited 12 times diarrhea more than that. 5-year-old son with similar symptoms. No fevers. No urinary symptoms. Upper indigestion symptoms no lower abdominal cramping. No vaginal bleeding. 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 Allergies to Vicodin. On prenatals. Denies alcohol tobacco or illicit drug use. Has been been doing well during . So far no complications. Prior similar symptoms: No PFSH PFSH Medical History no medical history Home Medications multivitamin 1 ea PO DAILY 01/19/20 [History Last Taken Unknown] famotidine 20 mg tablet (Pepcid) 10 mg PO DAILY 03/21/22 [History Last Taken Unknown] ondansetron 4 mg disintegrating tablet 8 mg PO Q8H PRN PRN Nausea #20 tabs 03/21/22 [Rx Last Taken Unknown] Allergy/AdvReac Type Severity Reaction Status Date / Time acetaminophen [From Vicodin] AdvReac Itching Verified 03/21/22 14:53 hydrocodone [From Vicodin] AdvReac Itching Verified 03/21/22 14:53 Family History Other Bleeding disorder Diabetes Surgical History no surgical history Social History Smoking Status: Never smoker alcohol intake: never ROS ROS ED Constitutional Constitutional ED: Denies chills, fever(s) or sweats Eyes Eyes: Denies change in vision ENT ENT ED: Denies dysphagia or sore throat Cardiovascular Cardiovascular: Denies chest pain, leg edema, palpitations or racing heartbeat Respiratory/Chest Respiratory/Chest: Denies cough, dyspnea or dyspnea on exertion Gastrointestinal Gastrointestinal: Reports diarrhea, nausea and vomiting; Denies abdominal pain Genitourinary Genitourinary ED: Denies dysuria, hematuria or urinary frequency Musculoskeletal Musculoskeletal: Denies back pain, extremity pain or neck pain Integumentary Denies rash or wounds Neurologic Neurologic: Denies headache(s), paresthesias or weakness EXAM Physical Exam Const Vital Signs: 03/21/22 14:51 Temperature 97.8 F Temperature Source Temporal Pulse Rate 98 Respiratory Rate 18 Blood Pressure 111/80 Blood Pressure Mean 90 Pulse Ox 102 Oxygen Delivery Method Room Air Positive well nourished and well developed General Appearance ED: well developed and NAD HEENT HEENT Narrative: Mild dry mucosal membranes normocephalic and atraumatic Eyes PERRL, EOMs intact bilaterally and conjunctivae normal General Eye ED: Yes normal appearance of both eyes Neck no lymphadenopathy and supple General: Negative for tenderness Chest Wall Chest: Negative for tenderness Resp normal respiratory effort and normal air movement Effort and Inspection: symmetric chest movement; Negative for respiratory distress Cardio regular rate, regular rhythm and no murmurs Peripheral Pulses: pulses 2+ throughout GI normal to inspection, nondistended, normoactive bowel sounds and non-tender GI Narrative: Gravid abdomen nontender. Palpation: Negative for guarding or rebound tenderness present Back/Spine no CVA tenderness and no thoracic nor lumbar tenderness Extremity normal to inspection General Extremety ED: Negative for edema or tenderness General Extremity: Negative for edema Neuro oriented x3 and no sensory deficits noted Sensorium / Orientation: awake and alert Skin no rashes or lesions noted and no wounds MDM MDM MDM Narrative Medical decision making narrative: Interventions / MDM: Differential diagnosis: Gastroenteritis, C. difficile infection, viral syndrome Diagnosis considered but do not suspect: N/A My EKG interpretation: N/A Imaging independently reviewed and interpreted by myself: N/A External documents reviewed: N/A Test considered but not ordered:N/A ED course: Patient nontoxic vital stable. 21 weeks gestation, bedside ultrasound heart tones 160, normal movements. Patient IV established, fluid Zofran IV given. Electrolytes obtained normal creatinine, potassium 3 she is having diarrhea. Urine mild leukocytes however epithelials. Sent for culture. Clinically not symptomatic. No pelvic pain or cramping no vaginal discharge. She is able to tolerate oral fluids well with potassium replacement in the ED. Unable to obtain a stool for further testing. Patient continue oral fluids for hydration. Prescription Zofran sent to her pharmacy. Return precautions. All questions were answered. Re-evaluation: stable and improved Disposition discussed with patient/family/significant other: Patient Case discussed with consulting clinician: N/A Lab Data Attestation: I reviewed the patient's lab results. Labs: Laboratory Results - last 24 hr 03/21/22 03/21/22 15:25 15:25 Sodium 135 L Potassium 3.0 L Chloride 101 Carbon Dioxide 24.0 Anion Gap 10 BUN 15 Creatinine 0.72 Estim Creat Clear Calc 105.01 Est GFR (MDRD) Af Amer 121 Est GFR (MDRD) Non-Af 100 BUN/Creatinine Ratio 20.9 H Glucose 131 H Calcium 9.1 Urine Color Yellow Urine Clarity Clear Urine pH 6.0 Ur Specific Byron 1.020 Urine Protein 30 H Urine Glucose (UA) Normal Urine Ketones 15 H Urine Occult Blood Negative Urine Nitrite Negative Urine Bilirubin Negative Urine Urobilinogen 1 H Ur Leukocyte Esterase 25 H Urine RBC 0 SEEN Urine WBC 0-5 SEEN Ur Squamous Epith Cells 5-10 SEEN Urine Bacteria RARE Urine Mucus 2+ Discharge Plan Triage Chief Complaint: Nausea/Vomiting/Diarrhea ED Provider: Teja Montes Dx/Rx/DC Orders Clinical Impression: Diarrhea, Second trimester , Acute hypokalemia, Vomiting Instructions: 2nd Trimester Changes, ED Diarrhea, Unknown Cause, ED Gastroenteritis, Viral (Adult) Prescriptions: New ondansetron [ondansetron] 4 mg tablet,disintegrating 8 mg PO Q8H PRN PRN (Reason: Nausea) Qty: 20 0RF No Action multivitamin 1 EACH tablet 1 ea PO DAILY famotidine [Pepcid] 20 mg Tablet 10 mg PO DAILY Primary Care Provider: Care Physician,No Primary Referrals: Zachery Oconnor MD [Non-Staff] - 3-5 Days if not improving Activity Restrictions/Additional Instructions: Potassium 3.0 normal creatinine. Continue oral fluids Zofran as needed. Follow-up with your doctor return if any worsening symptoms. Disposition Disposition: Home, Self Care Discharge Date/Time: 03/21/22 17:25
[2022-03-21] MEDS: 0.9% Normal Saline 1,000 ML 1000 ML IV (15:31)
[2022-03-21] MEDS: Ondansetron 4 MG/2 ML Vial IV (15:31)
[2022-03-21 15:42] LABS: Red Blood Cells-Urine 0 SEEN /hpf (0-5)
[2022-03-21 15:49] LABS: Color, Urine Yellow (Yellow); Glucose, Dipstick Normal (Normal); Ketone-Dipstick 15 mg/dl (Negative); Leukocyte Esterase-Dipstick 25 /ul (Negative); Nitrite-Dipstick Negative (Negative); Occult Blood-Urine Negative /ul (Negative); Protein-Dipstick 30 mg/dl (Negative); Urine Bilirubin Dipstick Negative (Negative); Urine Clarity Clear (Clear); Urine Urobilinogen 1 mg/dl (Normal)
[2022-03-21 15:57] LABS: Anion Gap 10 (5-15); BUN 15 mg/dL (7-18); BUN/Creat Ratio 20.9 RATIO (10-20); Calcium,Total 9.1 mg/dL (8.5-10.1); Chloride 101 mmol/L (98-107); Creatinine, Serum 0.72 mg/dL (0.55-1.02); EST Glomerular Filtration Rate 100 mL/min (>60); Est Glom Filt Rate - Afr Amer 121 mL/min (>60); Estimated Creatinine Clearance 105.01 ml/min; Glucose 131 mg/dL (74-106); Sodium Level 135 mmol/L (136-145)
[2022-03-21 16:23] LABS: Bacteria RARE /hpf (None Seen); Mucous, Urine 2+ /hpf (<or=2+); Squamous Epithelial Cells - UA 5-10 SEEN /hpf (5-10); White Blood Cells 0-5 SEEN /hpf (0-5)
[2022-03-21] MEDS: Potassium Chloride Oral Tablet 20 MEQ 40 MEQ PO (16:36)
== END 2022-03-21 17:25 | disposition home or self-care (01) ==
PROVIDERS: Emergency Provider Emergency Medicine; Visit Provider Emergency Medicine
DX: O99.282 Endocrine, nutritional and metabolic diseases complicating pregnancy, second trimester (principal); O99.612 Diseases of the digestive system complicating pregnancy, second trimester; R11.2 Nausea with vomiting, unspecified; Z3A.21 21 weeks gestation of pregnancy; E87.6 Hypokalemia; R19.7 Diarrhea, unspecified
CPT/HCPCS: 80048; 81001; 87086; 87088; 96361; 96374; 99284; J7030; J2405

== ENCOUNTER 2022-07-22 16:12 | Inpatient (IN) | payer OTHER, SELFPAY ==
[2022-07-22] VITALS (31 sets, daily range): BP systolic 108–134; BP diastolic 58–95; PULSE 69–101; TEMP 36.7–37.3; O2SAT 96–100; BMI 31.1
[2022-07-22 16:00] LABS: ROM Internal Control Test YES-OK TO RESULT pt. (Internal QC)
[2022-07-22 16:01] LABS: ROM Patient Test POSITIVE (Negative); Record Kit Lot#, ROM+ K1374
[2022-07-22] MEDS: Lactated Ringers 1,000 ML 200 ML IV (16:25)
[2022-07-22] MEDS: LACTATED RINGERS 500 ML 999 ML IV (16:30)
[2022-07-22 16:39] LABS: Absolute Lymphocyte Count 1.44 X10^3/uL (0.83-4.51); Absolute Neutrophil Count 5.8 X10^3/uL (2.0-7.7); Basophil# 0.01 X10^3/uL; Basophil% 0.1 % (0-1); Eosinophil# 0.05 X10^3/uL; Eosinophils% 0.6 % (0-5); Hematocrit 37.5 % (37-47); Hemoglobin 12.3 g/dL (12.0-15.0); Lymphocyte # 1.44 X10^3/ul (0.83-4.51); Lymphocyte % 18.4 % (19-41); Mean Corp Hgb Conc 32.8 g/dL (32-36); Mean Corpuscular Hgb 28.2 pg (27.0-32.0); Monocyte# 0.49 X10^3/uL; Monocyte% 6.3 % (0-10); NRBC Flagged by Analyzer 0 % (0-5); Neutrophil # 5.79 X10^3/uL (2.7-7.7); Platelet Count 290 K/mm3 (150-450); RBC Distribution Width CV 14.1 % (11.6-14.6); RBC Distribution Width SD 44.3 fl (35.1-43.9); Red Blood Count 4.36 M/mm3 (4.2-5.4); White Blood Count 7.8 K/mm3 (4.4-11.0)
[2022-07-22] MEDS: fentaNYL-bupivacaine (epidural) 100 ML BAG EPIDURAL (17:42)
[2022-07-22 17:57] LABS: Syphilis Antibodies Non-reactive
[2022-07-22] MEDS: Mag Hydrox/Al Hydrox/Simeth 30 ML UDC PO (19:56)
[2022-07-22] MEDS: Oxytocin 15 Units/NS 250ml 15 UNITS/250 ML IV.SOLN 2 UNITS IV (19:57)
[2022-07-22] MEDS: Ondansetron 4 MG/2 ML Vial IV (21:41)
--- NOTE | 2022-07-22 22:14 | PCM.HP.OB ---
HPI - General General Date of Admission: 07/22/22 HPI Narrative NANCY ALMEIDA, is a 32 F who presents with LOF and ctxs. Maternal Data Information Final ANU: 07/29/22 Gestational age: 39 weeks PFSH PFSH Medical History Breast disorder depression Home Medications multivitamin 1 ea PO DAILY 01/19/20 [History Last Taken Unknown] magnesium 200 mg tablet 400 mg PO DAILY 05/20/22 [History Last Taken 07/21/22] Allergy/AdvReac Type Severity Reaction Status Date / Time hydrocodone [From Vicodin] AdvReac Itching Verified 05/20/22 09:15 Family History Mother Diabetes Hypertension Father Fatty liver Father Bleeding disorder Surgical History History of surgical removal of meniscus of knee Social History Smoking Status: Never smoker alcohol intake: never History Elective abortions Hx Para 2 Spontaneous abortions Hx # Term Pregnancies Ectopic pregnancies Hx # Pregnancies Multiple births # of living children NST FHR Rate Baby A Baseline: 135 Variability:: Moderate Accelerations:: 15 x 15 Decelerations:: None Uterine Activity:: Q 7 minutes Vital Signs Vital Signs Vital Signs: 07/22/22 15:21 07/22/22 15:21 07/22/22 15:21 Temperature Temperature Source Temporal Pulse Rate 98 Blood Pressure 113/82 H BP Systolic 113 BP Diastolic 82 Pulse Ox 07/22/22 15:21 07/22/22 15:21 07/22/22 17:25 Temperature 99.2 F H Temperature Source Pulse Rate Blood Pressure 130/95 H BP Systolic 130 BP Diastolic 95 Pulse Ox 100 07/22/22 17:25 07/22/22 17:25 07/22/22 17:30 Temperature Temperature Source Pulse Rate 100 101 H Blood Pressure BP Systolic BP Diastolic Pulse Ox 98 07/22/22 17:30 07/22/22 17:34 07/22/22 17:34 Temperature Temperature Source Pulse Rate 85 Blood Pressure 134/86 H BP Systolic 134 BP Diastolic 86 Pulse Ox 98 07/22/22 17:35 07/22/22 17:35 07/22/22 17:40 Temperature Temperature Source Pulse Rate 92 Blood Pressure 118/83 H BP Systolic 118 BP Diastolic 83 Pulse Ox 98 07/22/22 17:40 07/22/22 17:40 07/22/22 17:40 Temperature Temperature Source Pulse Rate 83 86 Blood Pressure BP Systolic BP Diastolic Pulse Ox 97 07/22/22 17:44 07/22/22 17:44 07/22/22 17:45 Temperature Temperature Source Pulse Rate 100 92 Blood Pressure 116/76 BP Systolic 116 BP Diastolic 76 Pulse Ox 07/22/22 17:45 07/22/22 17:49 07/22/22 17:49 Temperature Temperature Source Pulse Rate 87 Blood Pressure 129/81 H BP Systolic 129 BP Diastolic 81 Pulse Ox 97 07/22/22 17:50 07/22/22 17:50 07/22/22 17:54 Temperature Temperature Source Pulse Rate 92 Blood Pressure 121/76 H BP Systolic 121 BP Diastolic 76 Pulse Ox 97 07/22/22 17:54 07/22/22 17:55 07/22/22 17:55 Temperature Temperature Source Pulse Rate 92 92 Blood Pressure BP Systolic BP Diastolic Pulse Ox 98 07/22/22 18:00 07/22/22 18:00 07/22/22 18:00 Temperature Temperature Source Pulse Rate 97 Blood Pressure 131/65 H BP Systolic 131 BP Diastolic 65 Pulse Ox 98 07/22/22 18:05 07/22/22 18:05 07/22/22 18:05 Temperature Temperature Source Pulse Rate 86 Blood Pressure 120/73 BP Systolic 120 BP Diastolic 73 Pulse Ox 97 07/22/22 19:15 07/22/22 19:15 07/22/22 19:15 Temperature Temperature Source Temporal Pulse Rate 83 Blood Pressure 122/72 H BP Systolic 122 BP Diastolic 72 Pulse Ox 07/22/22 19:15 07/22/22 20:07 07/22/22 20:07 Temperature 98.9 F Temperature Source Pulse Rate 82 Blood Pressure 124/78 H BP Systolic 124 BP Diastolic 78 Pulse Ox 07/22/22 20:07 07/22/22 20:07 07/22/22 20:48 Temperature 98.8 F Temperature Source Temporal Pulse Rate Blood Pressure 112/75 BP Systolic 112 BP Diastolic 75 Pulse Ox 07/22/22 20:48 07/22/22 20:48 07/22/22 20:48 Temperature 98.0 F Temperature Source Temporal Pulse Rate 96 Blood Pressure BP Systolic BP Diastolic Pulse Ox 07/22/22 21:50 07/22/22 21:50 07/22/22 21:50 Temperature Temperature Source Temporal Pulse Rate 77 Blood Pressure 113/70 BP Systolic 113 BP Diastolic 70 Pulse Ox 07/22/22 21:50 Temperature 98.9 F Temperature Source Pulse Rate Blood Pressure BP Systolic BP Diastolic Pulse Ox Weight Weight: 193 lb 5.526 oz Body Mass Index (BMI) 31.1 Physical Exam Const alert and oriented x3 Chest inspection of chest normal GI soft to palpation, non-tender and non-distended Inspection: gravid Narrative: cvx - /-1 Labs Labs Labs: Blood Type O NEGATIVE Antibody Screen NEGATIVE Hct 37.5 % (37-47) Hgb 12.3 g/dL (12.0-15.0) Syphilis Total Ab Non-reactive VZV IgG Antibody 230 index (Immune >165) Rubella IgG Antibody Reactive (Nonreactive) Hep Bs Antigen Non-Reactive (Nonreactive) Chlamydia DNA (RODRIGO) Negative (Negative) Neisseria gonorrhoeae DNA (RODRIGO) Negative (Negative) HIV 1&2 Antibody Non-Reactive (Nonreactive) Glucose 1 Hr 50 gm 87 mg/dL (70-140) Group B Strep DNA Negative (Negative) Rhogam given: Yes See [facility] H&P Assessment & Plan (1) 39 weeks gestation of : COMMENT: @ 39 weeks (2) SROM (spontaneous rupture of membranes): PLAN: Plan Admit to L&D Augment with pitocin GBS negative EFW - less than 4500g, patient with adequate pelvis Pain - epidural Routine care
--- NOTE | 2022-07-22 22:31 | EX.PCM.OBRPT ---
Maternal Data Information Final ANU: 07/29/22 Gestational age: 39 weeks Vaginal Delivery Maternal Presentation Maternal Presentation: Spontaneous Rupture of Membranes Type of Induction: Pitocin Operative Information Date of Procedure: 07/22/22 Pre-Operative Diagnosis: SROM Post-Operative Diagnosis: SROM Surgery / Procedure Performed: Spontaneous Vaginal Delivery Type of Anesthesia: Epidural and Local with 1% Lidocaine Estimated Blood Loss: 350ml Findings Description of Procedure: Patient prepped & draped when C/C/+2. She pushed well to deliver the head. head gently guided to allow delivery of anterior and posterior shoulders. No excess traction placed on head. Body delivered and 3VC clamped & cut in delayed fashion. Placenta delivered with gentle traction and good uterine tone obtained. Presentation: GEORGE Amniotic Membrane Rupture Type: Spontaneous Amniotic Fluid Description: Clear Placental Delivery Description: Expressed Placenta Disposition: [facility] Specimen(s) Removed: Placenta Cord Vessel Description: 3 Vessels Cord Entanglement: None A Gender: Female (Kelly) (1 minute): 8 (5 minute): 9 Delayed Cord Clamping: Yes Post Vaginal Delivery Medications Given After Delivery: IV Pitocin Episiotomy Description: None Laceration: 2nd degree (perineal - repaired with 3-0 vicryl) Complication Complications: None
[2022-07-22] MEDS: Lidocaine 1% (30 ml sdv) 30 ML Vial INFILT (23:14)
[2022-07-22] MEDS: Oxytocin 15 Units/NS 250ml 15 UNITS/250 ML IV.SOLN 83 UNITS IV (23:40)
[2022-07-23] VITALS (32 sets, daily range): BP systolic 92–116; BP diastolic 58–79; PULSE 68–87; RESP 16–18; TEMP 36.3–36.9; O2SAT 95–99
[2022-07-23] MEDS: Ibuprofen 600 MG Tablet PO ×3 (01:08→15:53)
--- NOTE | 2022-07-23 02:00 | NURSING ---
Epidural catheter removed, blue tip intact.
[2022-07-23] MEDS: Acetaminophen 500 MG Tablet 1000 MG PO ×2 (04:43→23:04)
--- NOTE | 2022-07-23 07:37 | PCM.PN.OB ---
Subjective Subjective Denies complaints Objective Data Objective Data Vital Signs: Vital Signs Temp Pulse Resp BP Pulse Ox O2 Del Method 98.5 F 85 16 107/67 98 Room Air 07/23/22 04:20 07/23/22 04:20 07/23/22 04:20 07/23/22 04:43 07/23/22 04:20 07/23/22 04:20 Oxygen Delivery Method Room Air Weight: 193 lb 5.526 oz Body Mass Index (BMI) 31.1 Intake & Output: Intake and Output for Last 24 Hours 07/21/22 07/22/22 07/23/22 23:59 23:59 23:59 Intake Total 1801.93 / 1801.93 498.07 / 498.07 Output Total 1000 / 1000 1050 / 1050 Balance 801.93 / 801.93 -551.93 / -551.93 Lab / Micro Data Result Diagrams: 07/22/22 16:10 Labs: Laboratory Results - last 24 hr 07/22/22 15:30: Vag Amniotic Fld Detect POSITIVE H 07/22/22 16:10: WBC 7.8, RBC 4.36, Hgb 12.3, Hct 37.5, MCV 86.0, MCH 28.2, MCHC 32.8, RDW Std Deviation 44.3 H, RDW Coeff of Michelle 14.1, Plt Count 290, MPV 10.0, Immature Gran % (Auto) 0.600, Neut % (Auto) 74.0 H, Lymph % (Auto) 18.4 L, [place] % (Auto) 6.3, Eos % (Auto) 0.6, Baso % (Auto) 0.1, Absolute Neuts (auto) 5.8, Absolute Lymphs (auto) 1.44, Nucleated RBC % 0 07/22/22 16:10: Blood Type O NEGATIVE, Antibody Screen NEGATIVE 07/22/22 16:10: Syphilis Total Ab Non-reactive Physical Exam Const alert, oriented x3 and no apparent distress HEENT normocephalic GI soft to palpation, non-tender and non-distended GI Narrative: fundus firm, mid & below umbilicus Extremity normal to inspection and no calf tenderness Assessment & Plan (1) Normal vaginal delivery: COMMENT: PPD#1 PLAN: Routine care
[2022-07-23] MEDS: Benzocaine/Lanolin/Aloe Vera 1 SPRAY EACH TOPICAL (15:55)
[2022-07-23] MEDS: Senna/Docusate Sodium 1 Tablet PO (18:08)
[2022-07-24 02:24] VITALS: BP 100/64; PULSE 72; RESP 16; TEMP 36.8; O2SAT 97
[2022-07-24 07:48] VITALS: BP 108/79; PULSE 78; RESP 16; TEMP 36.3; O2SAT 98
[2022-07-24] MEDS: Ibuprofen 600 MG Tablet PO (07:56)
[2022-07-24] MEDS: Senna/Docusate Sodium 1 Tablet PO (07:57)
--- NOTE | 2022-07-24 08:38 | PCM.PN.OB ---
Objective Data Objective Data Doing well per patient and nursing staff. Ambulating and taking PO without difficulty. Voiding and passing flatus. Pain controlled. , services for assistance. Denies headache, visual changes, chest pain, shortness of breath, leg pain or increased bleeding. Lochia normal. Vital Signs: Vital Signs Temp Pulse Resp BP Pulse Ox O2 Del Method 97.3 F L 78 16 108/79 98 Room Air 07/24/22 07:48 07/24/22 07:48 07/24/22 07:48 07/24/22 07:48 07/24/22 07:48 07/24/22 07:48 Oxygen Delivery Method Room Air Weight: 193 lb 5.526 oz Body Mass Index (BMI) 31.1 Intake & Output: Intake and Output for Last 24 Hours 07/22/22 07/23/22 07/24/22 23:59 23:59 23:59 Intake Total 1801.93 / 1801.93 498.07 / 498.07 Output Total 1000 / 1000 1050 / 1050 Balance 801.93 / 801.93 -551.93 / -551.93 Lab / Micro Data Result Diagrams: 07/22/22 16:10 Labs: Laboratory Results - last 24 hr 07/23/22 04:25: Screen NEGATIVE, Baby's Blood Type A POSITIVE, Baby's JEWELL NEGATIVE ROS Constitutional Constitutional: Reports systems reviewed and no addt'l complaints, except as documented; Denies headache(s) Eyes Eyes: Denies acute decrease in peripheral vision, blurry vision or change in vision ENT HEENT: Reports systems reviewed and no addt'l complaints, except as documented Cardiovascular Cardiovascular: Denies chest pain or dizziness Respiratory/Chest Respiratory/Chest: Denies cough, dyspnea, dyspnea on exertion, shortness of breath at rest or shortness of breath with exertion Gastrointestinal Gastrointestinal: Denies abdominal pain, diarrhea, nausea or vomiting Genitourinary Genitourinary: Denies abdominal discomfort Musculoskeletal Musculoskeletal: Denies limited range of motion Integumentary Integumentary: Reports systems reviewed and no addt'l complaints, except as documented Neurologic Neurologic: Reports systems reviewed and no addt'l complaints, except as documented Psychiatric Psychiatric: Reports systems reviewed and no addt'l complaints, except as documented Endocrine Endocrinology: Reports systems reviewed and no addt'l complaints, except as documented Hematologic/Lymphatic Hematologic/Lymphatic: Reports systems reviewed and no addt'l complaints, except as documented Allergic/Immunologic Allergic/Immunologic: Reports systems reviewed and no addt'l complaints, except as documented Physical Exam Const alert and oriented x3 General Appearance: cooperative Orientation / Consciousness: awake, oriented to person, oriented to place and oriented to time Exam Limitations: no limitations HEENT normocephalic Head and Scalp: normal to inspection, normocephalic and atraumatic Face and Sinus: normal facial exam Eyes General Eye: normal appearance of both eyes Neck full ROM Chest Chest: symmetrical chest wall rise Resp normal respiratory effort and normal air movement Auscultation: clear to auscultation bilaterally Cardio regular rate, regular rhythm, S1 normal heart sound, S2 normal heart sound, no murmurs, no rub, no gallops and no clicks GI normal to inspection, nondistended, normoactive bowel sounds and non-tender appearance of the vagina normal Bladder / Kidney Exam: no CVA tenderness Back/Spine normal ROM Extremity normal to inspection and full ROM Skin no rashes or lesions noted Neuro oriented x3, CN's II-XII intact bilaterally and moves all extremities Sensorium / Orientation: awake, alert and oriented to person Motor Exam: clonus absent Deep Tendon Reflexes: Rt Patellar (L4): 2+ and Lt Patellar (L4): 2+ Assessment & Plan (1) Normal vaginal delivery: COMMENT: PPD#2 PLAN: Plan 1) Routine PP care 2) Vitals stable 3) I&O 4) Pain controlled 5) without pain 6) Follow up 2 weeks and 6 week PP 7) D/C home today
--- NOTE | 2022-07-24 08:43 | DS.PCM_ITS ---
Providers Date of Admission: 07/22/22 Primary Care Physician: Wendy Primary Care Phys Reason For Visit: LABOR AND DELIVERY Diagnosis Discharge Diagnosis (1) Normal vaginal delivery: Status: Acute Code(s): O80 - Encounter for full-term uncomplicated delivery Plan 1) Routine PP care 2) Vitals stable 3) I&O 4) Pain controlled 5) without pain 6) Follow up 2 weeks and 6 week PP 7) D/C home today Medications at Discharge Home Medications multivitamin 1 ea PO DAILY 01/19/20 magnesium 200 mg tablet 400 mg PO DAILY 05/20/22 Weight / BMI Weight Weight: 193 lb 5.526 oz Body Mass Index (BMI) 31.1 ABG / Lab / Microbiology Data Result Diagrams: 07/22/22 16:10 Laboratory: Laboratory Results - last 24 hr 07/23/22 04:25: Screen NEGATIVE, Baby's Blood Type A POSITIVE, Baby's JEWELL NEGATIVE Discharge Plan Admission Admit Date/Time: 07/22/22 16:12 Primary Reason for Your Visit: Vaginal Delivery Attending Provider: Nghia Gracia Primary Care Provider: Care Physician,Wendy Primary Discharge Orders/Prescriptions Prescriptions: No Action magnesium 200 mg tablet 400 mg PO DAILY multivitamin 1 EACH tablet 1 ea PO DAILY Referrals / Follow Up: Care Physician,No Primary [Primary Care Provider] -
--- NOTE | 2022-07-24 08:43 | PCM.DC.SUM ---
Providers Date of Admission: 07/22/22 Primary Care Physician: Wendy Primary Care Phys Reason For Visit: LABOR AND DELIVERY Diagnosis Discharge Diagnosis (1) Normal vaginal delivery: Status: Acute Code(s): O80 - Encounter for full-term uncomplicated delivery Plan 1) Routine PP care 2) Vitals stable 3) I&O 4) Pain controlled 5) without pain 6) Follow up 2 weeks and 6 week PP 7) D/C home today Medications at Discharge Home Medications multivitamin 1 ea PO DAILY 01/19/20 acetaminophen 500 mg tablet 1,000 mg PO Q6H PRN PRN Pain 1-10 Or Fever #0 tabs 07/24/22 ibuprofen 600 mg tablet 600 mg PO Q6H PRN PRN Pain Score 1-3 #0 tabs 07/24/22 Weight / BMI Weight Weight: 193 lb 5.526 oz Body Mass Index (BMI) 31.1 ABG / Lab / Microbiology Data Result Diagrams: 07/22/22 16:10 Laboratory: Laboratory Results - last 24 hr 07/23/22 04:25: Screen NEGATIVE, Baby's Blood Type A POSITIVE, Baby's JEWELL NEGATIVE Meaningful Use Info Meaningful Use Diagnoses (Choose all that apply): None applicable Discharge Plan Admission Admit Date/Time: 07/22/22 16:12 Primary Reason for Your Visit: Vaginal Delivery Attending Provider: Nghia Gracia Primary Care Provider: Care Wendy Yanez Primary Discharge Orders/Prescriptions Prescriptions: New acetaminophen 500 mg Tablet 1,000 mg PO Q6H PRN PRN (Reason: Pain 1-10 Or Fever) Qty: 0 0RF ibuprofen 600 mg Tablet 600 mg PO Q6H PRN PRN (Reason: Pain Score 1-3) Qty: 0 0RF Continued multivitamin 1 EACH tablet 1 ea PO DAILY Discontinued magnesium 200 mg tablet 400 mg PO DAILY Referrals / Follow Up: Care Physician,Wendy Primary [Primary Care Provider] - Disposition Disposition (needs filled in before D/C Order can be placed): Home, Self Care
--- NOTE | 2022-07-24 12:00 | CASEMGMT ---
Social Work Assessment Labor and Delivery Unit [id number] [place] [place] [address] Phone number: [phone] Date of Referral:07/23/22 Time of Referral: 02:07 Referred By: Nghia Gracia Date of Intervention: 07/24/22 Time of Intervention: 10:30 Reason for Referral: Hx of PPD History obtained from: medical records and mother of baby (JIMMY) and father of baby (FOB) Household composition: Living at home with JIMMY is FOB, new baby (Kelly) and two other children: Colton Garcia (11/27/2016) and Isaiah Garcia (09/13/2018) Patient's parent/guardian status: Parents dated for four years before getting engaged and will be celebrating their 9 year wedding anniversary next month. When asked privately, JIMMY denies any historical or current concerns of abuse/ domestic violence. Medical History: JIMMY is . She received routine care, first beginning at [facility] and then changed providers to [facility]. JIMMY delivered baby via vaginal delivery. Baby weighted 3450g, apgars were 8 and 9 and is healthy- no medical concerns noted. Educational Status: No concerns noted with parents ability to read/ write or learn. 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 Financial Status: Both parents are employed at this time and are both able to commit to their family needs financially. TENISHA is a hanna for his family's farm and also works as a contractor. Supplies: JIMMY confirmed they have a crib for their baby, already set up at home and ready for her. Sw discussed safe sleep and encouraged parents to ensure the other children at home are educated not to put blankets in baby's crib with her. Car seat is also purchased new for baby, seen in room. 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 She is able to take 12 weeks of FMLA time when school resumes and she is considering doing that. TENISHA was able to take some time off to help prepare for the baby's arrival and is able to be off of work for three days this week. Parents report that when they need a director community organization they typically rely on paternal grandparents. Transportation: No transportation barriers at this time. Programs/Agencies Involved: Parents denied current linkage to any community resources. Children Services/Legal Issues: No concerns Behavioral Health Issues: JIMMY reports that she struggled with anxiety leading up to the delivery of her baby. She states that she likes to be in control and not knowing how the was going to play out caused her to be anxious. Mental Health History: TENISHA denies mental health history. JIMMY discussed getting diagnosed with Post Depression following the of her second born. JIMMY states that at that time she did start medication (which she used for 9 months) and also engaged in outpatient counseling with [facility]. [place] Depression Scale completed with JIMMY due to PPD history. JIMMY scored a 3 and was encouraged to keep attending her counseling appointments as scheduled with [facility]. Substance Use History: JIMMY denied substance use upon admission. Family History: No family history noted Drug Screens: Upon completing chart review, no urine screens completed, no concerns of substance use noted. Family/Social Stressors: JIMMY stated that her relationship with her parents is up and down. Her parents live 25 minutes away from her and she does not see them frequently. Support Systems: Parents report that paternal grandparents are their biggest supports. Paternal grandparents have been helping with the other two children while JIMMY and TENISHA are at hospital with . Depression: Sw discussed PPD and discussing signs and symptoms with her Counselor. Both parents state that they are big supports for one another. Parents report they have a code word that they use when they are feeling frustrated or overwhelmed and need to step away or take a break. Saying the code word tells the other parent they need to step in and help. Shaken Baby: Shaken Baby was discussed with both parents. Both parents stated they understand the danger and know to never shake a baby. Safe Sleeping: ABC's of safe sleep discussed. Encouraged parents to educate older children on keeping baby's crib free from extra blankets, toys, etc. Parents expressed understanding. ASSESSMENT: Support provided to parents. JIMMY expressed understanding of how to use appropriate coping skills including talking to TENISHA and her counseling regarding PPD. Parents have everything they need to take baby home including car seat, crib, clothing and feeding supplies. PLAN: No other services requested or indicated Shubham Renner, HILDA, CARE TRANSITION MANAGER
== END 2022-07-24 11:40 | disposition home or self-care (01) | DRG 807 ==
LOC: WPOUT 16:16 → WP 16:16
PROVIDERS: Admitting Provider Obstetrics & Gynecology; Visit Provider Obstetrics & Gynecology
DX: O42.92 Full-term premature rupture of membranes, unspecified as to length of time between rupture and onset of labor (principal); Z37.0 Single live birth; O70.1 Second degree perineal laceration during delivery; Z3A.39 39 weeks gestation of pregnancy; Z87.59 Personal history of other complications of pregnancy, childbirth and the puerperium
CPT/HCPCS: 59025; 59050; 84112; 85025; 85461; 86780; 86850; 86900; 86901; 99221; J7120; G0378; J2405; J2790

== ENCOUNTER 2023-10-22 09:30 | Day surgery (SDC) | payer OTHER, SELFPAY ==
[2023-10-22] VITALS (18 sets, daily range): BP systolic 111–125; BP diastolic 75–93; PULSE 55–91; RESP 14–16; TEMP 36.3–37.2; O2SAT 95–100; BMI 26.4
--- NOTE | 2023-10-22 10:09 | CT_ITS ---
STUDY: CT ABDOMEN AND PELVIS WITH CONTRAST REASON FOR EXAM: Female, 33 years old. RLQ pain RADIATION DOSAGE (If Supplied By Facility): CTDIvol = ( 30.36 ) mGy, DLP = ( 931.44 ) mGycm TECHNIQUE: Transaxial images were obtained from the dome of the diaphragm to the symphysis pubis without oral contrast. IV 100mL Isovue-370 was administered. Sagittal and coronal images were reconstructed. Individualized dose optimization techniques were used for this CT. COMPARISON: None. FINDINGS: The visualized lung bases are unremarkable. The visualized portions of the heart are within normal limits. Normal liver. Normal gallbladder and extrahepatic biliary system. Normal spleen. Normal pancreas. Normal bilateral adrenal glands. Normal right kidney. Normal left kidney. Normal visualized stomach. Normal small intestine. Normal colon. There is a tubular, thick-walled appendix (>7mm), consistent with acute appendicitis. Inflammatory changes are seen in the surrounding peritoneal fat. Normal abdominal aorta. Normal inferior vena cava. Normal retroperitoneum. Normal urinary bladder. Normal abdominal wall. Spondylolysis of the pars interarticularis of the L5 vertebrae with no significant listhesis. CT/Abdomen/Pelvis W IV Cont ONLY IMPRESSION: Findings are in keeping with acute appendicitis with inflammatory changes seen in the surrounding mesenteric fat. No evidence of abnormal fluid or abscess collection. Electronically Signed: Cuco Wiggins MD at 11:05 EDT ,
--- NOTE | 2023-10-22 10:10 | ED.VIS.GI ---
HPI HPI - GI History of Present Illness Chief Complaint: Abd Pain Informant: patient Narrative Narrative: 33-year-old healthy female gradual onset right lower quadrant pain yesterday progress seen, was colic yesterday but today just steady, it is not as bad as it was overnight. Hurts more to move and stand up. Some nausea yesterday no vomiting. Low-grade fever 100.3 but she is also having some cold symptoms for the last 3 days. No history of any abdominal surgeries. 3 prior spontaneous vaginal delivery is not currently . No urinary symptoms. Pain radiates into the right flank and low back. PFSH PFSH Medical History Breast disorder depression Home Medications ?Medication ?Instructions ?Recorded ?Last Taken ?Type multivitamin 1 ea PO DAILY 01/19/20 Unknown History acetaminophen 500 mg tablet 1,000 mg (2 x 500 mg) PO Q6H PRN 07/24/22 Unknown Rx PRN Pain 1-10 Or Fever #0 tabs ibuprofen 600 mg tablet 600 mg PO Q6H PRN PRN Pain Score 07/24/22 Unknown Rx 1-3 #0 tabs Allergy/AdvReac Type Severity Reaction Status Date / Time hydrocodone (From Vicodin) AdvReac Itching Verified 10/22/23 09:32 Family History Mother Diabetes Hypertension Father Fatty liver Father Bleeding disorder Surgical History History of surgical removal of meniscus of knee Social History Smoking Status: Never smoker alcohol intake: never ROS ROS ED Constitutional Constitutional ED: Reports fever(s); Denies chills Eyes Eyes: Denies change in vision or diplopia ENT ENT ED: Denies rhinorrhea or sore throat Cardiovascular Cardiovascular: Denies chest pain or palpitations Respiratory/Chest Respiratory/Chest: Reports cough; Denies dyspnea Gastrointestinal Gastrointestinal: Reports abdominal pain and nausea; Denies diarrhea, melena or vomiting Genitourinary Genitourinary ED: Denies dysuria or hematuria Musculoskeletal Musculoskeletal: Reports back pain; Denies neck pain Integumentary Denies abscess or rash Neurologic Neurologic: Denies headache(s), paresthesias or weakness Psychiatric Psychiatric: Denies anxiety or suicidal thoughts EXAM Physical Exam Const Vital Signs: 10/22/23 09:32 Temperature 97.4 F L Temperature Source Temporal Pulse Rate 91 Respiratory Rate 16 Blood Pressure 121/89 H Blood Pressure Mean 99 Pulse Ox 99 Oxygen Delivery Method Room Air Positive well nourished and well developed General Appearance ED: well developed and NAD HEENT Reports moist mucous membranes normocephalic and atraumatic Eyes PERRL and EOMs intact bilaterally Neck full ROM and supple Resp normal respiratory effort and clear to auscultation bilaterally Cardio regular rate, regular rhythm and no murmurs GI non-distended GI Narrative: Quite tender in the right lower quadrant including McBurney's point no guarding or rebound, also tender a little lateral and a little higher, in the right mid abdomen. No CVA tenderness. Negative Rovsing, negative obturator, negative psoas. Auscultation: normoactive bowel sounds Palpation: soft Back/Spine no CVA tenderness General Back: other FROM Extremity normal to inspection General Extremety ED: Negative for edema, pulses abnormal or tenderness General Extremity: Negative for edema or pulses abnormal Neuro oriented x3, CN's II-XII intact bilaterally and no sensory deficits noted Sensorium / Orientation: awake and alert Motor Exam: strength 5/5 throughout Skin no rashes or lesions noted and no wounds MDM MDM MDM Narrative Medical decision making narrative: Appendicitis in the differential as is kidney stone/ureteral colic. She is tender fairly high for this to be an acute ovarian issue although those could be in the differential as well, but I would rule out the former first. Blood work, to rule out ectopic, and CT scan ordered. She is given some IV fluids, Zofran, Toradol for pain. Labs noted, I reviewed the CT images and report which I agree with, it is consistent with acute appendicitis nonruptured. Greater than 7 mm. Zosyn given, maintained n.p.o., she last had a small snack around 2-3 hours ago. Discussed with surgery Dr. Mark. Lab Data Attestation: I reviewed the patient's lab results. Labs: Laboratory Results - last 24 hr 10/22/23 10/22/23 10:05 10:18 WBC 8.4 RBC 4.60 Hgb 12.5 Hct 39.8 MCV 86.5 MCH 27.2 MCHC 31.4 L RDW Std Deviation 41.2 RDW Coeff of Michelle 13.2 Plt Count 278 MPV 9.2 Immature Gran % (Auto) 2.100 H Neut % (Auto) 72.4 H Lymph % (Auto) 16.5 L Woodson % (Auto) 8.3 Eos % (Auto) 0.5 Baso % (Auto) 0.2 Absolute Neuts (auto) 6.1 Absolute Lymphs (auto) 1.39 Nucleated RBC % 0 Sodium 138 Potassium 3.8 Chloride 105 Carbon Dioxide 29.0 Anion Gap 4 L BUN 13 Creatinine 0.86 Estim Creat Clear Calc 95.97 Est GFR (MDRD) Af Amer 97 Est GFR (MDRD) Non-Af 80 BUN/Creatinine Ratio 15.0 Glucose 85 Calcium 9.2 Total Bilirubin 1.10 H AST 10 L ALT 15 Alkaline Phosphatase 87 Total Protein 7.6 Albumin 3.5 Globulin 4.1 Albumin/Globulin Ratio 0.9 Serum , Qual NEGATIVE Urine Color Yellow Urine Clarity Sl. Cloudy Urine pH 6.5 Ur Specific [place] 1.010 Urine Protein Negative Urine Glucose (UA) Normal Urine Ketones Negative Urine Occult Blood Negative Urine Nitrite Negative Urine Bilirubin Negative Urine Urobilinogen Normal Ur Leukocyte Esterase Negative Urine RBC 0 SEEN Urine WBC 0 SEEN Ur Squamous Epith Cells 0-5 SEEN Urine Bacteria 0 SEEN Urine Mucus 0 SEEN Radiography Diagnostic Testing: Clinical Impression(s) from Imaging Studies Abdomen/Pelvis CT 10/22/23 10:09 IMPRESSION: Findings are in keeping with acute appendicitis with inflammatory changes seen in the surrounding mesenteric fat. No evidence of abnormal fluid or abscess collection. Electronically Signed: Cuco Wiggins MD at 11:05 EDT , Management Discussion w/another healthcare provider: Promotions Representative (surgery Jas) Critical Care Time Critical Care Time: Yes Critical care time (excluding procedures): 30-74 minutes (32 min), Including time spent:, Discussing w/Patient &/or Family/Animal Cop, Discussing w/Consultants, Arranging Admission or Transfer and Performing Direct Patient Care at Bedside Discharge Plan Triage Chief Complaint: Abd Pain ED Provider: Kole,Jordan Dx/Rx/DC Orders Clinical Impression: Acute appendicitis Prescriptions: No Action multivitamin 1 EACH tablet 1 ea PO DAILY acetaminophen 500 mg Tablet 1,000 mg PO Q6H PRN PRN (Reason: Pain 1-10 Or Fever) Qty: 0 0RF ibuprofen 600 mg Tablet 600 mg PO Q6H PRN PRN (Reason: Pain Score 1-3) Qty: 0 0RF Primary Care Provider: Care Physician,No Primary Referrals: Care Physician,No Primary [Primary Care Provider] - Print Language: Irish Disposition Disposition: Acute Care Hospital [facility]
[2023-10-22] MEDS: 0.9% Normal Saline (1000mL) 1,000 ML 125 ML IV (10:20)
[2023-10-22] MEDS: Ketorolac 30 MG/ML Syringe IV (10:20)
[2023-10-22] MEDS: Ondansetron 4 MG/2 ML Vial IV (10:20)
[2023-10-22 10:23] LABS: Absolute Lymphocyte Count 1.39 X10^3/uL (0.83-4.51); Absolute Neutrophil Count 6.1 X10^3/uL (2.0-7.7); Basophil# 0.02 X10^3/uL; Basophil% 0.2 % (0-1); Eosinophil# 0.04 X10^3/uL; Eosinophils% 0.5 % (0-5); Hematocrit 39.8 % (37-47); Hemoglobin 12.5 g/dL (12.0-15.0); Lymphocyte # 1.39 X10^3/ul (0.83-4.51); Lymphocyte % 16.5 % (19-41); Mean Corp Hgb Conc 31.4 g/dL (32-36); Mean Corpuscular Hgb 27.2 pg (27.0-32.0); Mean Corpuscular Volume 86.5 fL (81-99); Mean Platelet Vol. 9.2 fl (6.2-12.0); Monocyte% 8.3 % (0-10); NRBC Flagged by Analyzer 0 % (0-5); Neutrophil # 6.08 X10^3/uL (2.7-7.7); Neutrophil % 72.4 % (47-70); Platelet Count 278 K/mm3 (150-450); RBC Distribution Width CV 13.2 % (11.6-14.6); RBC Distribution Width SD 41.2 fl (35.1-43.9); White Blood Count 8.4 K/mm3 (4.4-11.0)
[2023-10-22 10:24] LABS: Bacteria 0 SEEN /hpf (None Seen); Mucous, Urine 0 SEEN /hpf (<or=2+); Red Blood Cells-Urine 0 SEEN /hpf (0-5); White Blood Cells 0 SEEN /hpf (0-5)
[2023-10-22 10:27] LABS: Internal QC Validated? YES +Cl - CLEAR BKGD; Pregnancy, Serum, hCG Quali. NEGATIVE Negative
[2023-10-22 10:29] LABS: Color, Urine Yellow (Yellow); Glucose, Dipstick Normal (Normal); Ketone-Dipstick Negative (Negative); Leukocyte Esterase-Dipstick Negative /ul (Negative); Nitrite-Dipstick Negative (Negative); Occult Blood-Urine Negative /ul (Negative); Protein-Dipstick Negative (Negative); Urine Bilirubin Dipstick Negative (Negative); Urine Clarity Sl. Cloudy (Clear); Urine Urobilinogen Normal (Normal); Urine pH 6.5 (5.0 - 8.0)
[2023-10-22 10:37] LABS: Squamous Epithelial Cells - UA 0-5 SEEN /hpf (5-10)
[2023-10-22 10:40] LABS: ALB/GLOB Ratio 0.9 RATIO (0.9-2.4); AST(SGOT) 10 U/L (15-37); Alanine Aminotransfer ALT/SGPT 15 U/L (13-56); Albumin, Serum 3.5 g/dL (3.2-5.0); Alkaline Phosphatase 87 U/L (45-117); Anion Gap 4 (5-15); BUN 13 mg/dL (7-18); Calcium,Total 9.2 mg/dL (8.5-10.1); Chloride 105 mmol/L (98-107); Creatinine, Serum 0.86 mg/dL (0.55-1.02); EST Glomerular Filtration Rate 80 mL/min (>60); Est Glom Filt Rate - Afr Amer 97 mL/min (>60); Estimated Creatinine Clearance 95.97 ml/min; Globulin 4.1 g/dL (2.2-4.2); Glucose 85 mg/dL (74-106); Potassium 3.8 mmol/L (3.5-5.1); Protein, Total 7.6 g/dL (6.4-8.2); Sodium Level 138 mmol/L (136-145)
[2023-10-22] MEDS: Piperacil/Tazobactam 3.375 GM in 0.9% Normal Saline (50mL MB+) 50 ML IV (11:42)
--- NOTE | 2023-10-22 12:18 | PCM.HP.STD ---
HPI - General General Date of Admission: 10/22/23 Date of Service: 10/22/23 Chief Complaint: Right lower quadrant pain HPI Narrative NANCY ALMEIDA, is a 33 F who presents with a 1 day history of abdominal pain. She noted the pain started in the epigastric region and gradually moved to the right lower quadrant by evening last night. She noted pain associated with nausea. She denies vomiting with the pain. She noted slight lack of appetite. She notes the pain is worse with coughing and positional change. She noted last night her pain was a 7 out of 10. She was able to take Tylenol and sleep through the night and upon waking she noted the discomfort was slightly better, however still rates her pain at a 5 out of 10. She denies any previous abdominal surgery. 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 She denies any previous cardiovascular disease or pulmonary disease. She denies previous complications with anesthesia. She last ate at around 915 this morning. She denies any fever or chills. She did mentioned she had a head cold last week. She has since recovered. CT scan of ab/pel demonstrated acute appendicitis. WBC is 8.4 with associated left shift. [facility] Medical History Breast disorder depression Home Medications ?Medication ?Instructions ?Recorded ?Last Taken ?Type multivitamin 1 ea PO DAILY 01/19/20 Unknown History acetaminophen 500 mg tablet 1,000 mg (2 x 500 mg) PO Q6H PRN 07/24/22 Unknown Rx PRN Pain 1-10 Or Fever #0 tabs ibuprofen 600 mg tablet 600 mg PO Q6H PRN PRN Pain Score 07/24/22 Unknown Rx 1-3 #0 tabs Allergy/AdvReac Type Severity Reaction Status Date / Time hydrocodone (From Vicodin) AdvReac Itching Verified 10/22/23 09:32 Family History Mother Diabetes Hypertension Father Fatty liver Father Bleeding disorder Surgical History History of surgical removal of meniscus of knee Social History Smoking Status: Never smoker alcohol intake: never ROS Constitutional Constitutional: Reports systems reviewed and no addt'l complaints, except as documented Eyes Eyes: Reports systems reviewed and no addt'l complaints, except as documented ENT HEENT: Reports systems reviewed and no addt'l complaints, except as documented Cardiovascular Cardiovascular: Reports systems reviewed and no addt'l complaints, except as documented Respiratory/Chest Respiratory/Chest: Reports systems reviewed and no addt'l complaints, except as documented Gastrointestinal Gastrointestinal: Reports systems reviewed and no addt'l complaints, except as documented Genitourinary Genitourinary: Reports systems reviewed and no addt'l complaints, except as documented Musculoskeletal Musculoskeletal: Reports systems reviewed and no addt'l complaints, except as documented Integumentary Integumentary: Reports systems reviewed and no addt'l complaints, except as documented Neurologic Neurologic: Reports systems reviewed and no addt'l complaints, except as documented Psychiatric Psychiatric: Reports systems reviewed and no addt'l complaints, except as documented Endocrine Endocrinology: Reports systems reviewed and no addt'l complaints, except as documented Hematologic/Lymphatic Hematologic/Lymphatic: Reports systems reviewed and no addt'l complaints, except as documented Allergic/Immunologic Allergic/Immunologic: Reports systems reviewed and no addt'l complaints, except as documented Vital Signs Vital Signs Vital Signs: 10/22/23 09:32 10/22/23 11:31 Temperature 97.4 F L Temperature Source Temporal Pulse Rate 91 83 Respiratory Rate 16 16 Blood Pressure 121/89 H 119/93 H Blood Pressure Mean 99 101 Pulse Ox 99 99 Oxygen Delivery Method Room Air Room Air Weight Weight: 164 lb Body Mass Index (BMI) 26.4 Physical Exam Const alert, oriented x3 and no apparent distress HEENT normocephalic and head/scalp atraumatic Eyes PERRL Neck full ROM Lymph Lymphatic: no lymphadenopathy noted Resp normal respiratory effort and clear to auscultation bilaterally Cardio regular rate and regular rhythm GI GI Narrative: Abdomen- soft, tenderness in the right lower quadrant over McBurney's point with positive rebound tenderness. Positive bowel sounds. no CVA tenderness Back/Spine no CVA tenderness Extremity normal to inspection Skin no rashes or lesions noted Neuro no focal motor deficits and no sensory deficits noted Psych mental status grossly normal and thought process normal Results Lab / Micro Data 10/22/23 10:05 10/22/23 10:05 Labs: Laboratory Results - last 24 hr 10/22/23 10:05: WBC 8.4, RBC 4.60, Hgb 12.5, Hct 39.8, MCV 86.5, MCH 27.2, MCHC 31.4 L, RDW Std Deviation 41.2, RDW Coeff of Michelle 13.2, Plt Count 278, MPV 9.2, Immature Gran % (Auto) 2.100 H, Neut % (Auto) 72.4 H, Lymph % (Auto) 16.5 L, Chase % (Auto) 8.3, Eos % (Auto) 0.5, Baso % (Auto) 0.2, Absolute Neuts (auto) 6.1, Absolute Lymphs (auto) 1.39, Nucleated RBC % 0, Sodium 138, Potassium 3.8, Chloride 105, Carbon Dioxide 29.0, Anion Gap 4 L, BUN 13, Creatinine 0.86, Estim Creat Clear Calc 95.97, Est GFR (MDRD) Af Amer 97, Est GFR (MDRD) Non-Af 80, BUN/Creatinine Ratio 15.0, Glucose 85, Calcium 9.2, Total Bilirubin 1.10 H, AST 10 L, ALT 15, Alkaline Phosphatase 87, Total Protein 7.6, Albumin 3.5, Globulin 4.1, Albumin/Globulin Ratio 0.9, Serum , Qual NEGATIVE 10/22/23 10:18: Urine Color Yellow, Urine Clarity Sl. Cloudy, Urine pH 6.5, Ur Specific Larue 1.010, Urine Protein Negative, Urine Glucose (UA) Normal, Urine Ketones Negative, Urine Occult Blood Negative, Urine Nitrite Negative, Urine Bilirubin Negative, Urine Urobilinogen Normal, Ur Leukocyte Esterase Negative, Urine RBC 0 SEEN, Urine WBC 0 SEEN, Ur Squamous Epith Cells 0-5 SEEN, Urine Bacteria 0 SEEN, Urine Mucus 0 SEEN Imaging Radiology Impression Abdomen/Pelvis CT 10/22/23 10:09 IMPRESSION: Findings are in keeping with acute appendicitis with inflammatory changes seen in the surrounding mesenteric fat. No evidence of abnormal fluid or abscess collection. Electronically Signed: Cuco Wiggins MD at 11:05 EDT , Assessment & Plan Assessment/Plan (1) Acute appendicitis: QUALIFIERS: Acute appendicitis type: with localized peritonitis Appendicitis gangrene presence: without gangrene Appendicitis perforation presence: without perforation Appendicitis abscess presence: without abscess Qualified Code(s): K35.30 - Acute appendicitis with localized peritonitis, without perforation or gangrene PLAN: I am seeing this patient in conjunction with Dr. Mark. He will independently evaluate this patient. Patient presents with a 1 day history of right lower quadrant pain that progressively became worse. CT scan confirmed acute appendicitis. Patient was discussed with Dr. Mark. Dr. Mark will plan to perform a laparoscopic appendectomy. Procedure details, risks and benefits have been explained. Patient and her father have had the opportunity to ask and have questions answered. Patient verbally understands and agrees with the plan. We discussed the potential for admission for observation over night. Patient was agreeable. We also discussed not returning to work until next Sunday. Thank you for allowing us to participate in this patient's care. Charges/Coding Visit Charges OBSV E&M: 24015 Observ/hosp same date L2
[2023-10-22] MEDS: Lactated Ringers 1,000 ML 15 ML IV ×2 (12:50→16:04)
[2023-10-22 13:17] LABS: Internal QC Validated? YES +Cl - CLEAR BKGD; Pregnancy, Urine Negative Negative
--- NOTE | 2023-10-22 13:24 | PCM.PRE.AN2 ---
ASA Classification* ASA Classification ASA Classification: 2 and E Assessment & Plan Anesthesia* Anesthesia Assessment Anesthesia Assessment: Discussed sedation and/or anesthesia options, risks, benefits, and alternatives with patient/parents/legal guardian/POA. Questions invited. The patient/parents/legal guardian/POA seems to understand and agrees to proceed with anesthesia plan. Reviewed the physical assessment, medical history, allergy history and patient home medications list prior to surgery/procedure/anesthetic and documented any changes. Performed airway and anesthesia risk assessments. Anesthesia Type Anesthesia Type: General History Source History Obtained from:: Patient and Chart Anesthesia Focused Assessment* Temperature: 98 F Pulse Rate: 83 Blood Pressure: 119/93 Respiratory Rate: 16 Pulse Ox: 99 Oxygen Delivery Method: Room Air Airway Assessment Mouth opens: >3 cm Mallampati Score: II Teeth Condition: Caps/Crowns (There is a cap On incisor #8. She also has a crown on the left upper molar. These are both tight.) Neck Range of motion (ROM): Full ROM Comment: Patient has a permanent retainer on her bottom teeth. Focused Labs Anesthesia Preop lab: CBC WBC 8.4 K/mm3 (4.4-11.0) 10/22/23 10:05 RBC 4.60 M/mm3 (4.2-5.4) 10/22/23 10:05 Hgb 12.5 g/dL (12.0-15.0) 10/22/23 10:05 Hct 39.8 % (37-47) 10/22/23 10:05 Plt Count 278 K/mm3 (150-450) 10/22/23 10:05 CHEMISTRY Potassium 3.8 mmol/L (3.5-5.1) 10/22/23 10:05 Sodium 138 mmol/L (136-145) 10/22/23 10:05 BUN 13 mg/dL (7-18) 10/22/23 10:05 Creatinine 0.86 mg/dL (0.55-1.02) 10/22/23 10:05 Glucose 85 mg/dL (74-106) 10/22/23 10:05 TSH 0.31 uIU/mL (0.358-3.74) L 02/13/18 11:50 COAG Urine Test Negative Negative 10/22/23 10:18 Tst Clinic Negative 12/05/17 09:19 Pre-Assessment Diagnosis/Proposed Procedure Planned Operative Procedure(s): Laparoscopic appendectomy. Anesthesia History Anesthesia History - associate director of biostatistics: Anesthesia History - associate director of biostatistics Hx Hospitalization No 01/19/20 10:30 Any Problems With Anesthesia No 01/19/20 10:30 Cholinesterase deficiency No 01/19/20 10:30 You/Your Family Experience No 01/19/20 10:30 fever (hyperthermia) with Relationship Recent Exposure to Contagious No 01/21/20 10:48 Disease Does patient have nerve No 01/19/20 10:30 stimulator Patient instructed to have device shut off --Does patient have Pacemaker or ICD? When Was Last Pacemaker Check QUESTION #4 FULL TEXT: You/Your Family Experience fever (hyperthermia) with Anesthesia Last Oral Intake Last Oral intake: Last Oral Intake NPO since Meds taken in AM with sips of water? Meds patient instructed to take am of surgery Any additional information?: Yes NPO since: 09:15 (Patient had goldfish crackers at 9:15 AM.) PONV PONV - associate director of biostatistics: PONV - associate director of biostatistics Female HX of Motion Sickness HX of N/V After Surgery Non-Smoker Duration of Surgery greater than 60 minutes Number of Risk Factors PONV Score Height & Weight Height & Weight: Anesthesia: Height & Weight Height 5 ft 6 in 10/22/23 09:32 Weight: 74.389 kg 10/22/23 09:32 Body Mass Index (BMI) 26.4 10/22/23 09:32 Respiratory Assessment Respiratory Assessment - associate director of biostatistics: Respiratory Tract Infection Hx - associate director of biostatistics Hx Respiratory Tract Infection No 01/19/20 10:30 Any additional information?: Yes Hx Respiratory Tract Infection: Yes (Patient has had a slight cough for about 3 to 4 days.) STOP Sleep Apnea STOP Sleep Apnea - associate director of biostatistics: STOP Sleep Apnea - associate director of biostatistics Hx Hypertension No 09/07/20 07:42 Hx Sleep Apnea No 01/21/20 15:45 CPAP No 01/21/20 14:30 BIPAP Do you snore loudly (louder than talking or can be heard Do you often feel tired/ fatigued/ sleepy during daytime? Has anyone observed you stop breathing during sleep? STOP Results QUESTION #5 FULL TEXT : Do you snore loudly (louder than talking or can be heard through closed doors)? 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 Specify any problems Hx of Preganancy in last 3 Months Nurse Filling Out Transfusion & Questions: Date: Time: Patient unable to answer at this time (ie. confused, unrespo /Reproduction History /Reproductive History - associate director of biostatistics: /Reproductive Hx- associate director of biostatistics Hx Now Gestational Age (in weeks): EDC: Hx Hx Para Hx Section SAB No 10/22/23 09:32 Active Medications Active Medications: Current Medications Generic Name Dose Route Start Last Admin Trade Name Freq PRN Reason Stop Dose Admin Sodium Chloride 1,000 mls @ 125 mls/hr 10/22/23 10:10 10/22/23 12:50 IV Infused .Q8H MEENAKSHI Infusion Lactated Ringer's 1,000 mls @ 15 mls/hr 10/22/23 12:45 10/22/23 12:50 IV 15 mls/hr .Q48H MEENAKSHI Administration PFSH Medical History Breast disorder depression Home Medications ?Medication ?Instructions ?Recorded ?Last Taken ?Type multivitamin 1 ea PO DAILY 01/19/20 10/21/23 History acetaminophen 500 mg tablet 1,000 mg (2 x 500 mg) PO Q6H PRN 07/24/22 10/21/23 22:00 Rx PRN Pain 1-10 Or Fever #0 tabs ibuprofen 600 mg tablet 600 mg PO Q6H PRN PRN Pain Score 07/24/22 Unknown Rx 1-3 #0 tabs desvenlafaxine succinate 25 mg 25 mg PO Q24H anxiety 10/22/23 10/22/23 07:00 History tablet,extended release 24 hr Allergy/AdvReac Type Severity Reaction Status Date / Time hydrocodone (From Vicodin) AdvReac Itching Verified 10/22/23 12:45 Family History Mother Diabetes Hypertension Father Fatty liver Father Bleeding disorder Surgical History History of surgical removal of meniscus of knee Social History Smoking Status: Never smoker alcohol intake: never Review of Systems (Anesthesia) ROS Narrative System reviewed and no additional complaints, except as documented.
[2023-10-22] MEDS: Bupivacaine 0.25% 30 ML Vial (14:34)
--- NOTE | 2023-10-22 14:44 | OP.PCM_ITS ---
Report of Operation Date of Procedure: 10/22/23 Pre-Operative Diagnosis: Acute appendicitis Post-Operative Diagnosis: Acute appendicitis Surgery/Procedure Performed:: Laparoscopic appendectomy Type of Anesthesia: General/Regional Specimen's removed: Appendix Estimated Blood Loss (mL): 5 Description of Procedure: The patient was brought into the operating room and general anesthesia was induced. The left arm was tucked and the abdomen was prepped and draped in usual sterile fashion. A small midline incision was made superior to the umbilicus and deepened to the level of the fascia. The fascia was elevated and incised. The peritoneum was also elevated and incised. A finger sweep was performed and a balloon trocar was placed into the abdomen and inflated. The abdomen was insufflated to 15 mmHg and the camera was inserted and the abdomen was inspected for any injuries upon entering the abdomen. There were none. The patient was placed in Trendelenburg position and a 5 mm ports placed in the left lower quadrant and suprapubic areas under direct visualization. Next using atraumatic bowel graspers the appendix was identified. The appendix was grasped and elevated and Enseal was used to take down the mesoappendix. A stapler was used to come across the base of the appendix. The appendix was then placed in Endo Catch bag and removed through the umbilical incision. The staple line was inspected and found to be hemostatic and intact. The 2 5 mm ports are removed under direct visualization. The balloon trocar was deflated and removed and all the air was removed from the abdomen. The umbilical incision fascia was closed with an 0 Vicryl [id number] suture. The incisions were then irrigated with saline and dried. Local anesthetic was injected into the incision sites. The skin incisions were then closed with interrupted 4-0 Monocryl suture and Steri- Strips. Bandages were applied and the patient was awoken and taken to PACU in stable condition. Patient tolerated the procedure well. Admit VTE Documentation VTE Mechan Device Prophylaxis: SCD's
--- NOTE | 2023-10-22 14:45 | DCINST_ITS ---
Discharge Instructions Procedure Appendectomy Diet Discharge Diet: Light diet - advance as tolerated Activity Discharge Activity: May Not Drive (for 2-3 days or while taking narcotic pain medications.) May shower in (days): 1 Lifting Restrictions: 20 lbs for 2 weeks Dressing / Incision Call your doctor if your incision/area has: Continuous Slow Oozing, Sudden Increased Bleeding, Increased Pain/ Swelling, Increased Redness and Foul Smelling Discharge Call your doctor if you observe: Fever of 101 or Higher Suture Line Care: Avoid Pulling/Pushing and Avoid Pinching/Bending Remove Dressing in: 2 days Cleanse incision/area with: Soap & Water Additional Dressing/Incision Instructions:: Keep dressing clean and dry. Change or remove dressing in 2 days. Leave steri strips for 1 week. May protect with a gauze bandaid. Follow Up Care Please Follow Up With: Randall Mark MD When: Please call to schedule 2 week follow up appointment. [phone] Test Results: Test results from this visit will be discussed in further detail at your follow- up appointment, if applicable. Discharge Plan Admission Attending Provider: Randall Mark Primary Care Provider: Care PhysicianWendy Primary Instructions Print Language: Austrian Discharge Orders/Prescriptions Prescriptions: New oxycodone 5 mg tablet 5 - 10 mg PO Q6H PRN (Reason: pain) 5 Days Qty: 20 0RF Continued multivitamin 1 EACH tablet 1 ea PO DAILY acetaminophen 500 mg Tablet 1,000 mg PO Q6H PRN PRN (Reason: Pain 1-10 Or Fever) Qty: 0 0RF ibuprofen 600 mg Tablet 600 mg PO Q6H PRN PRN (Reason: Pain Score 1-3) Qty: 0 0RF desvenlafaxine succinate 25 mg tablet extended release 24 hr 25 mg PO Q24H Referrals / Follow Up: Care Physician,Wendy Primary [Primary Care Provider] - Disposition Disposition (needs filled in before D/C Order can be placed): Home, Self Care
--- NOTE | 2023-10-22 14:53 | PCM.POST.ANE ---
Anesthesia: Postop Eval I Current Vital Signs Temperature: 98.7 F Pulse Rate: 80 Blood Pressure: 111/79 Respiratory Rate: 16 Pulse Ox: 99 Oxygen Delivery Method: Room Air Assessment Airway patent: Yes Spontaneous unlabored respirations: Yes Mental status: Awake and Calm nausea: No Vomiting: No Anesthesia Complication: No Fluid Hydration Crystalloid volume administer (ml): 800 Total IV fluid infused: 800 Progress Note Anesthesia document: Postop Eval 1 completed: Yes
--- NOTE | 2023-10-22 16:27 | POSTOPAN2_ITS ---
Anesthesia Postop Eval I Sum Postop Eval Completion status Anesthesia document: Postop Eval 1 completed: Yes Anesthesia Postop Eval I Summary Anesthesia Postop Eval I Summary: Anesthesia Postop Eval I: Assessment Summary Airway patent Yes 10/22/23 14:54 COAL AND ASH SUPERVISOR.[email or web address] Spontaneous unlabored Yes 10/22/23 14:54 COAL AND ASH SUPERVISOR.AUBREE respirations Mental status Awake,Calm 10/22/23 14:54 COAL AND ASH SUPERVISOR.FRIEDAOBY nausea No 10/22/23 14:54 COAL AND ASH SUPERVISOR.FRIEDAOBY Vomiting No 10/22/23 14:54 COAL AND ASH SUPERVISOR.FRIEDAOBSruthi Anesthesia Postop Eval I: Fluid Summary Crystalloid volume administer 800 10/22/23 14:54 COAL AND ASH SUPERVISOR.SKOBY (ml) Colloids volume administered ( ml) Blood Product volume administered (ml) Total IV fluid infused 800 10/22/23 14:54 COAL AND ASH SUPERVISOR.AUBREE Anesthesia Postop Eval I: Summary Notes Anesthesia Complication No 10/22/23 14:54 COAL AND ASH SUPERVISOR.AUBREE Anesthesia Complication Comment: Post-operative progress note Anesthesia: Postop Eval II Evaluation Mental status: Awake and Calm Pain Level: 1 nausea: No Vomiting: No Progress Note Post-operative progress note: Patient had chest pain in PACU. [place] like a weight on her chest. Twelve-lead EKG was done. It showed sinus bradycardia at 55 bpm. By time the EKG was obtained the patient's chest pain was dissipating seem like mostly gas pain. Doing much better will discharge from PACU Complications Anesthesia Complication: No
--- NOTE | 2023-10-22 16:27 | PCM.POSTANE2 ---
Anesthesia Postop Eval I Sum Postop Eval Completion status Anesthesia document: Postop Eval 1 completed: Yes Anesthesia Postop Eval I Summary Anesthesia Postop Eval I Summary: Anesthesia Postop Eval I: Assessment Summary Airway patent Yes 10/22/23 14:54 BONDING EQUIPMENT OPERATOR.SKOBY Spontaneous unlabored Yes 10/22/23 14:54 BONDING EQUIPMENT OPERATOR.AUBREE respirations Mental status Awake,Calm 10/22/23 14:54 BONDING EQUIPMENT OPERATOR.FRIEDAOBY nausea No 10/22/23 14:54 BONDING EQUIPMENT OPERATOR.FRIEDAOBY Vomiting No 10/22/23 14:54 BONDING EQUIPMENT OPERATOR.FRIEDAOBSruthi Anesthesia Postop Eval I: Fluid Summary Crystalloid volume administer 800 10/22/23 14:54 BONDING EQUIPMENT OPERATOR.SKOBY (ml) Colloids volume administered ( ml) Blood Product volume administered (ml) Total IV fluid infused 800 10/22/23 14:54 BONDING EQUIPMENT OPERATOR.AUBREE Anesthesia Postop Eval I: Summary Notes Anesthesia Complication No 10/22/23 14:54 BONDING EQUIPMENT OPERATOR.AUBREE Anesthesia Complication Comment: Post-operative progress note Anesthesia: Postop Eval II Evaluation Mental status: Awake and Calm Pain Level: 1 nausea: No Vomiting: No Progress Note Post-operative progress note: Patient had chest pain in PACU. [place] like a weight on her chest. Twelve-lead EKG was done. It showed sinus bradycardia at 55 bpm. By time the EKG was obtained the patient's chest pain was dissipating seem like mostly gas pain. Doing much better will discharge from PACU Complications Anesthesia Complication: No
--- NOTE | 2023-10-23 | APP_PTH ---
PATIENT: NANCY ALMEIDA LOC: [facility] [place] U#:[id number] AGE/SX: 33/F ROOM: RE10/22/[address]: Dr. Randall Mark MD : 1990 BED: DIS: 10/22/2023 SPEC #: [id number] RECD: 10/23/23 14:10 STATUS: MATTHEW RECatina #: [id number] ALEJANDRO: 10/23/23 00:[address]: Randall Mark DEPT: SURGICAL PATHOLOGY RECD BY: Shiva Arias ENTERED: 10/23/23 14:10 SP TYPE: APPENDIX OTHR DR: No Primary Care Phys Tissues: Appendix, NOS Procedures: Surgery Specimen Level III HEADER OPERATION: Laparoscopic appendectomy PRE-OP DIAGNOSIS: Acute appendicitis TISSUE SUBMITTED: Appendix MICROSCOPIC DIAGNOSIS Appendix, appendectomy: Acute necrotizing appendicitis. Acute serositis. AM. 10/24/2023 MICROSCOPIC DESCRIPTION Slides are reviewed. GROSS DESCRIPTION Received in fixative is one container labeled with the patient's name and designated appendix. The specimen consists of vermiform appendix measuring 6.0 cm in length and 1.2 cm in average diameter. No gross perforations are evident. Serial sections reveal a patent lumen with fecal material. No mass lesion is identified. [employer] sections are submitted in one cassette. / AM: 10/23/2023 TC:2 CPT: 91940
== END 2023-10-22 16:49 | disposition home or self-care (01) ==
LOC: ED 11:47 → SDC 12:25 → ACINP 12:25
PROVIDERS: Anesthesiology; Emergency Provider Emergency Medicine; Visit Provider Surgery
PROC: 0DTJ4ZZ Resection of Appendix, Percutaneous Endoscopic Approach (ICD-10-PCS; CPT 44970; principal; 2023-10-22 14:30)
DX: K35.891 Other acute appendicitis without perforation, with gangrene (principal)
CPT/HCPCS: 44970; 00840; 74177; 80053; 81001; 81025; 84703; 85025; 88304; 93005; 99284; J7030; J7120; Q9967; A4216; C1760; J2405